=== PATIENT | female | born 1940 | race Caucasian/White ===

== ENCOUNTER 2017-06-14 15:39 | Emergency (ER) | payer MEDICARE, MEDICAID ==
[~2017-06-14] VITALS: Ht 160 cm; Wt 51.0 kg
[~2017-06-14 15:39] MED LIST: CEPH250C92 PO; MECL-111 PO; ONDA4TAB12 PO; TETR15DR95 EACHEYE
[2017-06-14 15:41] VITALS: BP 153/96
[2017-06-14] MEDS: proparacaine 0.5% ophthalmic drops 15ml RIGHTEYE ONE (16:00)
[2017-06-14] MEDS ORDERED: GENT5DRO4 EACHEYE (16:39)
== END 2017-06-14 16:57 | disposition home or self-care (01) ==
LOC: ER 15:39
DX: H57.11 Ocular pain, right eye (principal); I10 Essential (primary) hypertension; E11.9 Type 2 diabetes mellitus without complications; G43.909 Migraine, unspecified, not intractable, without status migrainosus
CPT/HCPCS: 99283

== ENCOUNTER 2017-08-08 13:36 | Emergency (ER) | payer MEDICARE, MEDICAID ==
[~2017-08-08] VITALS: Ht 157.5 cm; Wt 54.4 kg
[~2017-08-08 13:36] MED LIST changes: +GENT5DRO4 EACHEYE
[2017-08-08 14:12] LABS: BASOPHILS % (AUTO) 0.4 % (0-1); EOSINOPHILS # (AUTO) 0.1 X10'3 (0-0.9); EOSINOPHILS % (AUTO) 1.1 % (0-6); HEMATOCRIT 43.4 % (35.0-45.0); HEMOGLOBIN 14.9 g/dl (12.0-16.0); LYMPHOCYTES # (AUTO) 1.4 X10'3 (1.1-4.8); LYMPHOCYTES % (AUTO) 18.6 % (21-51); MEAN CORPUSCULAR HEMOGLOBIN 29.2 PG (27.0-31.0); MEAN CORPUSCULAR HGB CONC 34.3 % (33.0-36.5); MEAN CORPUSCULAR VOLUME 85.3 FL (78-98); MEAN PLATELET VOLUME 8.9 FL (7.4-10.4); MONOCYTES # (AUTO) 0.3 X10'3 (0-0.9); MONOCYTES % (AUTO) 3.6 % (2-12); NEUTROPHILS # (AUTO) 5.6 X10'3 (1.8-7.7); NEUTROPHILS % (AUTO) 76.3 % (42-75); PLATELET COUNT 252 X10'3 (140-440); RED BLOOD COUNT 5.09 X10'6 (4.20-5.60); RED CELL DISTRIBUTION WIDTH 13.3 % (11.5-14.5); WHITE BLOOD COUNT 7.3 X10'3 (4.5-11.0)
[2017-08-08 14:26] LABS: ALANINE AMINOTRANSFERASE 16 U/L (12-78); ALBUMIN 4.3 G/DL (3.4-5.0); ALBUMIN/GLOBULIN RATIO 1.1 (1.1-1.5); ALKALINE PHOSPHATASE 104 IU/L (46-116); ANION GAP 11 (8-16); ASPARTATE AMINO TRANSFERASE 22 U/L (10-37); BILIRUBIN,TOTAL 0.7 MG/DL (0.1-1.0); BLOOD UREA NITROGEN 18 MG/DL (7-18); BUN/CREATININE RATIO 16.5 (6.6-38.0); CALCIUM 9.6 MG/DL (8.5-10.1); CHLORIDE 102 MMOL/L (99-107); CREATININE 1.09 MG/DL (0.40-0.90); GLUCOSE 124 MG/DL (70-104); POTASSIUM 4.5 MMOL/L (3.5-5.1); SODIUM 139 MMOL/L (135-145); TOTAL CARBON DIOXIDE 25.9 MMOL/L (24-32); TOTAL PROTEIN 8.3 G/DL (6.4-8.2); eGFR 49 ML/MIN
[2017-08-08] MEDS ORDERED: LISI10TA4 PO (14:38)
[2017-08-08 14:39] LABS: CLARITY,URINE CLEAR (Clear); COLOR,URINE YELLOW (Yellow); GLUCOSE, URINE NEGATIVE (Neg); KETONES,URINE TRACE mg/dl (Neg); LEUKOCYTE ESTERASE ,URINE NEGATIVE (Neg); NITRITES, URINE NEGATIVE (Neg); OCCULT BLOOD,URINE TRACE-INTACT (Neg); PH,URINE 5.5 (4.8-8.0); PROTEIN,URINE NEGATIVE (Neg); UROBILINOGEN,URINE 0.2 E.U/dL (0.2-1.0)
[2017-08-08 14:43] LABS: UA COLLECTION TYPE VOIDED
[2017-08-08 14:45] LABS: BACTERIA,URINE FEW /HPF (Neg); RBC,URINE 0-2 /HPF (0-2); SQUAMOUS EPITHELIAL CELL,UR FEW /LPF (FEW); WBC,URINE 0-4 /HPF (0-4)
[2017-08-08 15:03] VITALS: BP 119/68
[2017-08-14] MEDS ORDERED: CIPR-259 PO (00:07)
== END 2017-08-08 15:06 | disposition home or self-care (01) ==
LOC: ER 13:37
DX: I10 Essential (primary) hypertension (principal); G43.909 Migraine, unspecified, not intractable, without status migrainosus; E11.9 Type 2 diabetes mellitus without complications; E78.00 Pure hypercholesterolemia, unspecified; R41.0 Disorientation, unspecified; Z79.2 Long term (current) use of antibiotics; Z79.899 Other long term (current) drug therapy
CPT/HCPCS: 36415; 80053; 81001; 85025; 93005; 99285

== ENCOUNTER 2017-08-12 05:35 | Emergency (ER) | payer MEDICARE, MEDICAID ==
[~2017-08-12] VITALS: Ht 157.5 cm; Wt 51.1 kg
[~2017-08-12 05:35] MED LIST changes: +LISI10TA4 PO
[2017-08-12 06:00] VITALS: BP 116/57
[2017-08-14] MEDS ORDERED: CIPR-259 PO (00:07)
== END 2017-08-12 06:02 | disposition home or self-care (01) ==
LOC: ER 05:36
DX: Z00.8 Encounter for other general examination (principal); R42 Dizziness and giddiness; G43.909 Migraine, unspecified, not intractable, without status migrainosus; I10 Essential (primary) hypertension; E11.9 Type 2 diabetes mellitus without complications; Z79.2 Long term (current) use of antibiotics; Z79.899 Other long term (current) drug therapy
CPT/HCPCS: 93005; 99283

== ENCOUNTER 2017-08-16 10:51 | Emergency (ER) | payer MEDICARE, MEDICAID ==
[~2017-08-16] VITALS: Ht 157.5 cm; Wt 54.0 kg
[~2017-08-16 10:51] MED LIST changes: +CIPR-259 PO
[2017-08-16 11:47] LABS: BASOPHILS % (AUTO) 0.3 % (0-1); EOSINOPHILS % (AUTO) 0.5 % (0-6); HEMATOCRIT 42.2 % (35.0-45.0); HEMOGLOBIN 14.4 g/dl (12.0-16.0); LYMPHOCYTES # (AUTO) 1.5 X10'3 (1.1-4.8); LYMPHOCYTES % (AUTO) 17.6 % (21-51); MEAN CORPUSCULAR HEMOGLOBIN 29.2 PG (27.0-31.0); MEAN PLATELET VOLUME 8.6 FL (7.4-10.4); MONOCYTES # (AUTO) 0.4 X10'3 (0-0.9); MONOCYTES % (AUTO) 4.3 % (2-12); NEUTROPHILS # (AUTO) 6.4 X10'3 (1.8-7.7); NEUTROPHILS % (AUTO) 77.3 % (42-75); PLATELET COUNT 230 X10'3 (140-440); RED BLOOD COUNT 4.91 X10'6 (4.20-5.60); RED CELL DISTRIBUTION WIDTH 12.8 % (11.5-14.5); WHITE BLOOD COUNT 8.3 X10'3 (4.5-11.0)
[2017-08-16 11:58] LABS: PARTIAL THROMBOPLASTIN TIME 26 SECONDS (22-32); PROTHROMBIN TIME 10.8 SECONDS (9.0-12.0)
[2017-08-16 12:01] LABS: ALANINE AMINOTRANSFERASE 15 U/L (12-78); ALBUMIN 3.8 G/DL (3.4-5.0); ALKALINE PHOSPHATASE 103 IU/L (46-116); ANION GAP 10 (8-16); ASPARTATE AMINO TRANSFERASE 23 U/L (10-37); BILIRUBIN,TOTAL 0.5 MG/DL (0.1-1.0); BLOOD UREA NITROGEN 14 MG/DL (7-18); BUN/CREATININE RATIO 16.1 (6.6-38.0); CALCIUM 9.3 MG/DL (8.5-10.1); CHLORIDE 96 MMOL/L (99-107); CREATININE 0.87 MG/DL (0.40-0.90); GLUCOSE 116 MG/DL (70-104); SODIUM 133 MMOL/L (135-145); TOTAL CARBON DIOXIDE 26.6 MMOL/L (24-32); TOTAL PROTEIN 7.6 G/DL (6.4-8.2); eGFR 63 ML/MIN
[2017-08-16] MEDS ORDERED: famotidine/PF 10 mg/ml inj IV ONE (13:25)
[2017-08-16] MEDS ORDERED: normal saline 1000ML IV soln IVB ONE (13:25)
[2017-08-16 14:41] LABS: CLARITY,URINE CLEAR (Clear); COLOR,URINE STRAW (Yellow); GLUCOSE, URINE NEGATIVE (Neg); KETONES,URINE TRACE mg/dl (Neg); LEUKOCYTE ESTERASE ,URINE NEGATIVE (Neg); NITRITES, URINE NEGATIVE (Neg); OCCULT BLOOD,URINE NEGATIVE (Neg); PROTEIN,URINE NEGATIVE (Neg); UA COLLECTION TYPE CLN CATCH MIDSTREAM; UROBILINOGEN,URINE 0.2 E.U/dL (0.2-1.0)
[2017-08-16 17:29] VITALS: BP 111/90
== END 2017-08-16 17:31 | disposition home or self-care (01) ==
LOC: ER 11:01
DX: E86.0 Dehydration (principal); R42 Dizziness and giddiness; H53.8 Other visual disturbances; I10 Essential (primary) hypertension; E11.9 Type 2 diabetes mellitus without complications; G43.909 Migraine, unspecified, not intractable, without status migrainosus; Z79.2 Long term (current) use of antibiotics; Z79.899 Other long term (current) drug therapy
CPT/HCPCS: 36415; 71045; 80053; 81003; 84484; 85025; 85610; 85730; 93005; 96360; 96361; 99285; J7030; J3490

== ENCOUNTER 2017-08-22 15:04 | Emergency (ER) | payer MEDICARE, MEDICAID ==
[~2017-08-22] VITALS: Ht 157.5 cm; Wt 53.5 kg
[2017-08-22 17:30] VITALS: BP 145/90
== END 2017-08-22 17:33 | disposition home or self-care (01) ==
LOC: ER 15:05
DX: Z00.00 Encounter for general adult medical examination without abnormal findings (principal); F41.9 Anxiety disorder, unspecified; G43.909 Migraine, unspecified, not intractable, without status migrainosus; I10 Essential (primary) hypertension; E11.9 Type 2 diabetes mellitus without complications; Z79.2 Long term (current) use of antibiotics; Z79.899 Other long term (current) drug therapy
CPT/HCPCS: 99281

== ENCOUNTER 2018-01-23 15:39 | Emergency (ER) | payer MEDICARE, MEDICAID ==
[~2018-01-23] VITALS: Ht 157.5 cm; Wt 45.5 kg
[~2018-01-23 15:39] MED LIST changes: -CIPR-259 PO
[2018-01-23] MEDS ORDERED: DOCU-28 PO (15:56)
[2018-01-23] MEDS ORDERED: magnesium citrate 296ml oral solution PO ONE (16:00)
[2018-01-23 16:49] VITALS: BP 143/61
== END 2018-01-23 16:50 | disposition home or self-care (01) ==
LOC: ER 15:40
DX: K59.00 Constipation, unspecified (principal); R14.0 Abdominal distension (gaseous); G43.909 Migraine, unspecified, not intractable, without status migrainosus; I10 Essential (primary) hypertension; E11.9 Type 2 diabetes mellitus without complications; Z79.899 Other long term (current) drug therapy
CPT/HCPCS: 99284

== ENCOUNTER 2018-01-24 07:25 | Emergency (ER) | payer MEDICARE, MEDICAID ==
[~2018-01-24] VITALS: Ht 157.5 cm; Wt 50.0 kg
[~2018-01-24 07:25] MED LIST changes: +DOCU-28 PO
[2018-01-24 07:28] VITALS: BP 131/51
[2018-01-24] MEDS ORDERED: magnesium citrate 296ml oral solution PO ONE (07:45)
== END 2018-01-24 07:49 | disposition home or self-care (01) ==
LOC: ER 07:26
DX: K59.00 Constipation, unspecified (principal); R10.9 Unspecified abdominal pain; G43.909 Migraine, unspecified, not intractable, without status migrainosus; I10 Essential (primary) hypertension; E11.9 Type 2 diabetes mellitus without complications; Z79.899 Other long term (current) drug therapy
CPT/HCPCS: 99283

== ENCOUNTER 2018-01-31 19:11 | Emergency (ER) | payer MEDICARE, MEDICAID ==
[~2018-01-31] VITALS: Ht 162.6 cm; Wt 63.6 kg
[2018-01-31 19:26] VITALS: BP 130/72
== END 2018-01-31 20:09 | disposition left against medical advice (07) ==
LOC: ER 19:12
DX: K59.00 Constipation, unspecified (principal); Z53.21 Procedure and treatment not carried out due to patient leaving prior to being seen by health care provider

== ENCOUNTER 2018-05-08 19:02 | Emergency (ER) | payer MEDICARE, MEDICAID ==
[~2018-05-08] VITALS: Ht 157.5 cm; Wt 43.0 kg
[2018-05-08 20:28] LABS: BASOPHILS # (AUTO) 0.1 X10'3 (0-0.2); BASOPHILS % (AUTO) 0.5 % (0-1); EOSINOPHILS % (AUTO) 0.1 % (0-6); HEMATOCRIT 39.5 % (35.0-45.0); HEMOGLOBIN 13.1 g/dl (12.0-16.0); LYMPHOCYTES # (AUTO) 1.2 X10'3 (1.1-4.8); LYMPHOCYTES % (AUTO) 9.5 % (21-51); MEAN CORPUSCULAR HEMOGLOBIN 30.3 PG (27.0-31.0); MEAN CORPUSCULAR HGB CONC 33.1 g/dL (33.0-36.5); MEAN CORPUSCULAR VOLUME 91.5 FL (78-98); MEAN PLATELET VOLUME 8.7 FL (7.4-10.4); MONOCYTES # (AUTO) 0.9 X10'3 (0-0.9); NEUTROPHILS # (AUTO) 10.4 X10'3 (1.8-7.7); NEUTROPHILS % (AUTO) 82.9 % (42-75); PLATELET COUNT 234 X10'3 (140-440); RED BLOOD COUNT 4.31 X10'6 (4.20-5.60); RED CELL DISTRIBUTION WIDTH 13.7 % (11.5-14.5); WHITE BLOOD COUNT 12.5 X10'3 (4.5-11.0)
[2018-05-08 20:38] LABS: ALANINE AMINOTRANSFERASE 16 U/L (12-78); ALBUMIN 3.4 G/DL (3.4-5.0); ALKALINE PHOSPHATASE 103 IU/L (46-116); ANION GAP 7 (8-16); ASPARTATE AMINO TRANSFERASE 24 U/L (10-37); BILIRUBIN,TOTAL 0.2 MG/DL (0.1-1.0); BLOOD UREA NITROGEN 20 MG/DL (7-18); BUN/CREATININE RATIO 23.3 (6.6-38.0); CALCIUM 9.2 MG/DL (8.5-10.1); CHLORIDE 107 MMOL/L (99-107); CREATININE 0.86 MG/DL (0.40-0.90); GLUCOSE 94 MG/DL (70-104); POTASSIUM 3.9 MMOL/L (3.5-5.1); SODIUM 140 MMOL/L (135-145); TOTAL CARBON DIOXIDE 25.7 MMOL/L (24-32); TOTAL PROTEIN 6.9 G/DL (6.4-8.2); eGFR 64 ML/MIN
[2018-05-08 20:48] LABS: TROPONIN I 1.36 NG/ML (0.0-0.05)
[2018-05-08 21:12] LABS: PARTIAL THROMBOPLASTIN TIME 26 SECONDS (22-32); PROTHROMBIN TIME 10.5 SECONDS (9.0-12.0)
[2018-05-08] MEDS ORDERED: aspirin 81mg tab.chew PO ONE (21:15)
[2018-05-08] MEDS ORDERED: normal saline 1000ml 1,000 ML IV ONE (21:17)
[2018-05-08] MEDS ORDERED: normal saline 1000ML IV soln IVB ONE (21:20)
[2018-05-08] MEDS ORDERED: TETanus/Pertussis (Acell)/Diphther VAC/PF (Tdap-Adult) 0.5ml syringe IM ONE (21:50)
[2018-05-08 21:56] LABS: CLARITY,URINE CLEAR (Clear); COLOR,URINE YELLOW (Yellow); GLUCOSE, URINE NEGATIVE (Neg); KETONES,URINE NEGATIVE (Neg); LEUKOCYTE ESTERASE ,URINE NEGATIVE (Neg); NITRITES, URINE NEGATIVE (Neg); OCCULT BLOOD,URINE TRACE-INTACT (Neg); PH,URINE 5.5 (4.8-8.0); PROTEIN,URINE TRACE mg/dl (Neg); UROBILINOGEN,URINE 0.2 E.U/dL (0.2-1.0)
[2018-05-08 21:57] LABS: CREATINE KINASE 369 U/L (26-192); LIPASE 234 U/L (73-393); MAGNESIUM 2.1 MG/DL (1.5-2.4)
[2018-05-08 22:01] LABS: UA COLLECTION TYPE CLN CATCH MIDSTREAM
[2018-05-08 22:03] LABS: HYALINE CASTS 0-3 /LPF (NEGATIVE); MUCUS STRANDS MANY /LPF (Neg); SQUAMOUS EPITHELIAL CELL,UR MODERATE /LPF (FEW)
[2018-05-08 22:04] LABS: BACTERIA,URINE FEW /HPF (Neg); RBC,URINE 0-2 /HPF (0-2); WBC,URINE 0-4 /HPF (0-4)
[2018-05-08 23:41] VITALS: BP 132/75
--- NOTE | 2018-05-09 00:59 | NUR ---
pt resting comfortably on gurney. awaiting hospitalist and CT scan
--- NOTE | 2018-05-09 02:22 | NUR ---
ATTEMPTED TO CONTACT NEXT OF KIN - NUMBER ON CHART FOR KORINA GOMEZ STATES "NON-WORKING NUMBER" WHEN CALLED - I CHECKED PREVIOUS CHART NOTES FROM OTHER VISITS AND THE SAME NUMBER WAS LISTED. UNABLE TO REACH ANYONE RELATED TO PT TO LET THEM KNOW OF HER DISPOSITION.
== END 2018-05-09 03:15 | disposition short-term general hospital (02) ==
LOC: ER 19:02
DX: S06.5X0A Traumatic subdural hemorrhage without loss of consciousness, initial encounter (principal); S51.811A Laceration without foreign body of right forearm, initial encounter; S80.812A Abrasion, left lower leg, initial encounter; S80.811A Abrasion, right lower leg, initial encounter; I21.4 Non-ST elevation (NSTEMI) myocardial infarction; R41.82 Altered mental status, unspecified; G43.909 Migraine, unspecified, not intractable, without status migrainosus; I10 Essential (primary) hypertension; E11.9 Type 2 diabetes mellitus without complications; Z79.899 Other long term (current) drug therapy; W18.30XA Fall on same level, unspecified, initial encounter; Y93.89 Activity, other specified; Y92.89 Other specified places as the place of occurrence of the external cause; Y99.8 Other external cause status
CPT/HCPCS: 36415; 70450; 71045; 80053; 81001; 82550; 82948; 83690; 83735; 83880; 84484; 85025; 85610; 85730; 90471; 90715; 93005; 96360; 99291; J7030

== ENCOUNTER → 2021-03-28 | Emergency (ER) | payer MEDICARE, MEDICAID ==
[~2021-03-28] VITALS: Ht 160 cm; Wt 50.9 kg
[~2021-03-28] MED LIST changes: +LISI10TA27 PO; -LISI10TA4 PO; -MECL-111 PO; +MECL-159 PO; +TETR-78 EACHEYE; -TETR15DR95 EACHEYE
[2021-03-28 19:58] VITALS: BP 145/84
== END | disposition left against medical advice (07) ==
LOC: ER 19:23
DX: R11.0 Nausea (principal); G43.909 Migraine, unspecified, not intractable, without status migrainosus; I10 Essential (primary) hypertension; E11.9 Type 2 diabetes mellitus without complications; Z86.73 Personal history of transient ischemic attack (TIA), and cerebral infarction without residual deficits; Z79.899 Other long term (current) drug therapy; Z79.2 Long term (current) use of antibiotics
CPT/HCPCS: 99283

== ENCOUNTER 2021-04-13 10:01 | Inpatient (IN) | payer MEDICARE, MEDICAID ==
[~2021-04-13] VITALS: Ht 152.4 cm; Wt 43.2 kg
[2021-04-13] MEDS ORDERED: normal saline 1000ml 1,000 ML IV ONE ×2 (10:10→12:05)
[2021-04-13 10:50] LABS: BASOPHILS % (AUTO) 0.4 % (0-1); EOSINOPHILS % (AUTO) 0 % (0-6); HEMATOCRIT 46.8 % (35.0-45.0); HEMOGLOBIN 15.3 g/dl (12.0-16.0); LYMPHOCYTES # (AUTO) 0.7 X10'3 (1.1-4.8); LYMPHOCYTES % (AUTO) 12.1 % (21-51); MEAN CORPUSCULAR HEMOGLOBIN 28.7 PG (27.0-31.0); MEAN CORPUSCULAR HGB CONC 32.7 g/dL (33.0-36.5); MEAN CORPUSCULAR VOLUME 87.9 FL (78-98); MEAN PLATELET VOLUME 8.5 FL (7.4-10.4); MONOCYTES # (AUTO) 0.5 X10'3 (0-0.9); MONOCYTES % (AUTO) 7.8 % (2-12); NEUTROPHILS # (AUTO) 4.9 X10'3 (1.8-7.7); NEUTROPHILS % (AUTO) 79.7 % (42-75); PLATELET COUNT 332 X10'3 (140-440); RED BLOOD COUNT 5.32 X10'6 (4.20-5.60); RED CELL DISTRIBUTION WIDTH 14.4 % (11.5-14.5); WHITE BLOOD COUNT 6.2 X10'3 (4.5-11.0)
[2021-04-13 11:38] LABS: ALANINE AMINOTRANSFERASE 16 U/L (12-78); ALBUMIN 2.9 G/DL (3.4-5.0); ALBUMIN/GLOBULIN RATIO 0.6 (1.1-1.5); ALKALINE PHOSPHATASE 124 IU/L (46-116); ANION GAP 14 (8-16); ASPARTATE AMINO TRANSFERASE 29 U/L (10-37); BILIRUBIN,TOTAL 0.6 MG/DL (0.1-1.0); BLOOD UREA NITROGEN 17 MG/DL (7-18); BUN/CREATININE RATIO 16.7 (6.6-38.0); CALCIUM 8.8 MG/DL (8.5-10.1); CHLORIDE 98 MMOL/L (99-107); CREATINE KINASE 168 U/L (26-192); CREATININE 1.02 MG/DL (0.40-0.90); GLUCOSE 136 MG/DL (70-104); POTASSIUM 3.7 MMOL/L (3.5-5.1); SODIUM 139 MMOL/L (135-145); TOTAL CARBON DIOXIDE 27.3 MMOL/L (24-32); TOTAL PROTEIN 7.9 G/DL (6.4-8.2); eGFR 52 ML/MIN
--- NOTE | 2021-04-13 13:12 | NUR ---
FRIEND OF PT HERE TO VISIT, INFORMED THAT AT THIS TIME SHE COULD NOT HAVE VISITORS DO TO AN INSECT INFESTATIO. FRIEND REQUESTED THAT HE BE NOTIFIED TO WHEN PT IS DC OR IF SHE IS BEING ADMITTED. KORINA HAQ: [phone]
[2021-04-13] MEDS ORDERED: piperacillin/tazo 3.375gm/50ml 50 ML IV ONE (14:30)
[2021-04-13] MEDS ORDERED: Permethrin Cream 60gm TP ONE (15:50)
[2021-04-13] MEDS: normal saline 1000ml 1,000 ML IV SCH (15:50)
[2021-04-13] MEDS ORDERED: acetaminophen 650mg rectal suppository RC PRN (15:50)
[2021-04-13] MEDS ORDERED: metoclopramide 5 mg/ml inj IV PRN (15:50)
[2021-04-13] MEDS ORDERED: ondansetron 4mg rapidly disintigrating tab PO PRN (15:50)
[2021-04-13] MEDS ORDERED: mag hydrox/Alum hydrox/simeth 30ml oral suspension PO PRN (15:50)
[2021-04-13] MEDS ORDERED: Ivermectin 3mg tablet PO SCH (15:50)
[2021-04-13] MEDS ORDERED: bisacodyl 10mg suppository rectal RC PRN (15:50)
[2021-04-13] MEDS ORDERED: magnesium 4gm in 100ml NS 100 ML IV PRN (15:50)
[2021-04-13] MEDS ORDERED: magnesium Cl slow-release 64mg tablet PO PRN (15:50)
[2021-04-13] MEDS ORDERED: magnesium hydroxide 30ml (MOM) UD suspension PO PRN (15:50)
[2021-04-13] MEDS ORDERED: acetaminophen 325mg tablet PO PRN ×2 (15:50)
[2021-04-13] MEDS ORDERED: potassium Cl 20 mEq SR tablet PO PRN (15:50)
[2021-04-13] MEDS ORDERED: diphenhydrAMINE 25mg capsule PO PRN (15:50)
[2021-04-13] MEDS ORDERED: magnesium 2GM in 50ml NS 50 ML IV PRN (15:50)
[2021-04-13] MEDS ORDERED: diphenhydrAMINE 50 mg/ml inj IV PRN (15:50)
[2021-04-13] MEDS: piperacillin/tazo 3.375gm/50ml 50 ML IV SCH (16:00)
[2021-04-13 16:57] LABS: CREATINE KINASE 134 U/L (26-192); MAGNESIUM 1.6 MG/DL (1.5-2.4)
[2021-04-13 17:10] LABS: POTASSIUM 2.9 MMOL/L (3.5-5.1)
[2021-04-13] MEDS: potassium CL 10mEq/100ml bag 100 ML IV PRN (18:12)
[2021-04-13] MEDS ORDERED: NO HOME MEDS (18:20)
[2021-04-13 18:33] LABS: D-DIMER 9.63 MG/L FEU (0-0.50)
[2021-04-13] MEDS: K and/or MAG REPLACEMENT MC SCH (20:00)
[2021-04-13 22:00] VITALS: BP 164/85
[2021-04-14] MEDS: Ivermectin 3mg tablet PO SCH ×2 (00:47→01:40)
[2021-04-14] MEDS: docusate sod 100mg capsule PO SCH ×3 (00:48→20:00)
[2021-04-14] MEDS: piperacillin/tazo 3.375gm/50ml 50 ML IV SCH ×3 (00:48→16:47)
[2021-04-14] MEDS: famotidine 20mg tablet PO SCH ×3 (00:48→09:53)
[2021-04-14] MEDS: normal saline 1000ml 1,000 ML IV SCH ×2 (00:49→18:00)
--- NOTE | 2021-04-14 01:50 | NUR ---
pt spit out medications given orally. refused further PO meds. cream applied to skin.
[2021-04-14 02:00] VITALS: BP 149/77
[2021-04-14 06:45] VITALS: BP 106/69
--- NOTE | 2021-04-14 06:53 | NUR ---
Patient in room ORTHO 4010. I have received report from Elie DIAZ and had the opportunity to ask questions and assume patient care.
[2021-04-14] MEDS: K and/or MAG REPLACEMENT MC SCH ×2 (08:00→20:29)
[2021-04-14 08:19] LABS: BASOPHILS % (AUTO) 0.4 % (0-1); EOSINOPHILS % (AUTO) 0 % (0-6); HEMATOCRIT 38.6 % (35.0-45.0); HEMOGLOBIN 12.7 g/dl (12.0-16.0); LYMPHOCYTES # (AUTO) 0.6 X10'3 (1.1-4.8); LYMPHOCYTES % (AUTO) 15.1 % (21-51); MEAN CORPUSCULAR HEMOGLOBIN 28.5 PG (27.0-31.0); MEAN CORPUSCULAR VOLUME 86.5 FL (78-98); MEAN PLATELET VOLUME 8.9 FL (7.4-10.4); MONOCYTES # (AUTO) 0.5 X10'3 (0-0.9); MONOCYTES % (AUTO) 11.2 % (2-12); NEUTROPHILS # (AUTO) 3.1 X10'3 (1.8-7.7); NEUTROPHILS % (AUTO) 73.3 % (42-75); PLATELET COUNT 234 X10'3 (140-440); RED BLOOD COUNT 4.47 X10'6 (4.20-5.60); RED CELL DISTRIBUTION WIDTH 14.4 % (11.5-14.5); WHITE BLOOD COUNT 4.3 X10'3 (4.5-11.0)
[2021-04-14 08:40] LABS: D-DIMER 7.67 MG/L FEU (0-0.50)
[2021-04-14 08:44] LABS: ALANINE AMINOTRANSFERASE 14 U/L (12-78); ALBUMIN 2.3 G/DL (3.4-5.0); ALBUMIN/GLOBULIN RATIO 0.7 (1.1-1.5); ALKALINE PHOSPHATASE 90 IU/L (46-116); ANION GAP 11 (8-16); ASPARTATE AMINO TRANSFERASE 23 U/L (10-37); BILIRUBIN,TOTAL 0.6 MG/DL (0.1-1.0); BLOOD UREA NITROGEN 13 MG/DL (7-18); BUN/CREATININE RATIO 16.3 (6.6-38.0); C-REACTIVE PROTEIN 7.57 MG/DL (0.0-0.5); CALCIUM 7.7 MG/DL (8.5-10.1); CHLORIDE 105 MMOL/L (99-107); GLUCOSE 93 MG/DL (70-104); MAGNESIUM 1.9 MG/DL (1.5-2.4); POTASSIUM 3.1 MMOL/L (3.5-5.1); SODIUM 143 MMOL/L (135-145); TOTAL CARBON DIOXIDE 26.7 MMOL/L (24-32); TOTAL PROTEIN 5.8 G/DL (6.4-8.2); eGFR 69 ML/MIN
[2021-04-14] MEDS: potassium Cl 20 mEq SR tablet PO PRN (09:53)
[2021-04-14] MEDS: aspirin 81mg, enteric-coated 1 TAB TABLET.DR PO SCH (09:53)
[2021-04-14] MEDS: enoxaparin 40mg/0.4ml syringe SUBCUT SCH (09:54)
--- NOTE | 2021-04-14 10:10 | NUR ---
PATIENT GIVEN MEDICATION AND SPIT THEM BACK UP. WHEN ASKED HOW SHE TAKES THEM AT HOME SHE STATED "WITH A GLASS OF WATER" AM MEDS, UNABLE TO GIVE DUE TO PATIENT BEING UNCOOPERATIVE.
[2021-04-14 11:12] VITALS: BP 127/79
[2021-04-14 15:09] VITALS: BP 137/62
--- NOTE | 2021-04-14 18:34 | NUR ---
Problems reprioritized. Patient report given, questions answered & plan of care reviewed with NAYELY DIAZ.
[2021-04-14] MEDS: potassium CL 10mEq/100ml bag 100 ML IV PRN (20:10)
[2021-04-14 22:00] VITALS: BP 146/76
[2021-04-15] MEDS: piperacillin/tazo 3.375gm/50ml 50 ML IV SCH ×3 (01:00→16:30)
[2021-04-15] MEDS: normal saline 1000ml 1,000 ML IV SCH ×2 (05:20→16:30)
--- NOTE | 2021-04-15 05:20 | NUR ---
pt iv in right forearm infiltrated attemted x 3 without success. forth dose of potassium iv unable to give at this time also pipercillin 3.375 unable to give.
[2021-04-15 06:00] VITALS: BP 114/65
--- NOTE | 2021-04-15 06:48 | NUR ---
Problems reprioritized. Patient report given, questions answered & plan of care reviewed with Silvia.
--- NOTE | 2021-04-15 06:52 | NUR ---
Patient in room ORTHO 4007. I have received report from EMILY Argueta and had the opportunity to ask questions and assume patient care.
[2021-04-15 07:40] LABS: BASOPHILS % (AUTO) 0.5 % (0-1); EOSINOPHILS % (AUTO) 0 % (0-6); HEMATOCRIT 36.4 % (35.0-45.0); HEMOGLOBIN 12.1 g/dl (12.0-16.0); LYMPHOCYTES # (AUTO) 0.8 X10'3 (1.1-4.8); LYMPHOCYTES % (AUTO) 18.9 % (21-51); MEAN CORPUSCULAR HEMOGLOBIN 28.7 PG (27.0-31.0); MEAN CORPUSCULAR HGB CONC 33.2 g/dL (33.0-36.5); MEAN CORPUSCULAR VOLUME 86.4 FL (78-98); MEAN PLATELET VOLUME 8.9 FL (7.4-10.4); MONOCYTES # (AUTO) 0.5 X10'3 (0-0.9); MONOCYTES % (AUTO) 12.1 % (2-12); NEUTROPHILS % (AUTO) 68.5 % (42-75); PLATELET COUNT 239 X10'3 (140-440); RED BLOOD COUNT 4.21 X10'6 (4.20-5.60); RED CELL DISTRIBUTION WIDTH 14.4 % (11.5-14.5); WHITE BLOOD COUNT 4.4 X10'3 (4.5-11.0)
[2021-04-15] MEDS: K and/or MAG REPLACEMENT MC SCH ×2 (08:00→19:32)
[2021-04-15 08:06] LABS: D-DIMER 4.15 MG/L FEU (0-0.50)
[2021-04-15 08:31] LABS: ALANINE AMINOTRANSFERASE 13 U/L (12-78); ALBUMIN 2.1 G/DL (3.4-5.0); ALBUMIN/GLOBULIN RATIO 0.6 (1.1-1.5); ALKALINE PHOSPHATASE 79 IU/L (46-116); ANION GAP 13 (8-16); ASPARTATE AMINO TRANSFERASE 24 U/L (10-37); BILIRUBIN,TOTAL 0.4 MG/DL (0.1-1.0); BLOOD UREA NITROGEN 16 MG/DL (7-18); BUN/CREATININE RATIO 18.4 (6.6-38.0); C-REACTIVE PROTEIN 8.69 MG/DL (0.0-0.5); CALCIUM 7.9 MG/DL (8.5-10.1); CHLORIDE 104 MMOL/L (99-107); CREATININE 0.87 MG/DL (0.40-0.90); GLUCOSE 80 MG/DL (70-104); MAGNESIUM 1.9 MG/DL (1.5-2.4); POTASSIUM 3.5 MMOL/L (3.5-5.1); SODIUM 142 MMOL/L (135-145); TOTAL CARBON DIOXIDE 25.2 MMOL/L (24-32); TOTAL PROTEIN 5.6 G/DL (6.4-8.2); eGFR 62 ML/MIN
[2021-04-15 10:00] VITALS: BP 135/89
[2021-04-15] MEDS: famotidine 20mg tablet PO SCH (10:08)
[2021-04-15] MEDS: aspirin 81mg, enteric-coated 1 TAB TABLET.DR PO SCH (10:08)
[2021-04-15] MEDS: docusate sod 100mg capsule PO SCH ×2 (10:09→19:37)
[2021-04-15] MEDS: enoxaparin 40mg/0.4ml syringe SUBCUT SCH (10:19)
--- NOTE | 2021-04-15 12:14 | NUR ---
Pt refusing to be repositioned. Education provided on the importance of keeping skin clean and dry, as well as repositioning self in bed. Pt continues to states 'leave me alone, quit jerking me around' when repositioning attempted. Will continue to monitor.
[2021-04-15 14:00] VITALS: BP 153/87
[2021-04-15 18:00] VITALS: BP 152/94
--- NOTE | 2021-04-15 18:57 | NUR ---
Problems reprioritized. Patient report given, questions answered & plan of care reviewed with EMILY Aguilar.
[2021-04-15 22:00] VITALS: BP 135/75
[2021-04-16] MEDS: piperacillin/tazo 3.375gm/50ml 50 ML IV SCH ×3 (00:11→16:04)
[2021-04-16 02:00] VITALS: BP 143/59
[2021-04-16 05:00] VITALS: BP 106/78
[2021-04-16] MEDS: normal saline 1000ml 1,000 ML IV SCH ×2 (06:23→16:08)
--- NOTE | 2021-04-16 06:28 | NUR ---
Patient in room ORTHO 4007. I have received report from Lauren DIAZ and had the opportunity to ask questions and assume patient care.
[2021-04-16] MEDS: docusate sod 100mg capsule PO SCH ×2 (07:27→20:00)
[2021-04-16] MEDS: famotidine 20mg tablet PO SCH (07:27)
[2021-04-16] MEDS: aspirin 81mg, enteric-coated 1 TAB TABLET.DR PO SCH (07:27)
[2021-04-16] MEDS: enoxaparin 40mg/0.4ml syringe SUBCUT SCH (07:28)
[2021-04-16] MEDS: K and/or MAG REPLACEMENT MC SCH ×3 (08:00→19:25)
[2021-04-16 08:26] LABS: BASOPHILS % (AUTO) 0.5 % (0-1); EOSINOPHILS % (AUTO) 0.2 % (0-6); HEMATOCRIT 33.3 % (35.0-45.0); HEMOGLOBIN 11.1 g/dl (12.0-16.0); LYMPHOCYTES # (AUTO) 0.7 X10'3 (1.1-4.8); LYMPHOCYTES % (AUTO) 20.6 % (21-51); MEAN CORPUSCULAR HEMOGLOBIN 28.6 PG (27.0-31.0); MEAN CORPUSCULAR HGB CONC 33.5 g/dL (33.0-36.5); MEAN CORPUSCULAR VOLUME 85.4 FL (78-98); MEAN PLATELET VOLUME 8.5 FL (7.4-10.4); MONOCYTES # (AUTO) 0.3 X10'3 (0-0.9); MONOCYTES % (AUTO) 7.8 % (2-12); NEUTROPHILS # (AUTO) 2.5 X10'3 (1.8-7.7); NEUTROPHILS % (AUTO) 70.9 % (42-75); PLATELET COUNT 245 X10'3 (140-440); RED CELL DISTRIBUTION WIDTH 14.4 % (11.5-14.5); WHITE BLOOD COUNT 3.5 X10'3 (4.5-11.0)
[2021-04-16 08:49] LABS: ALANINE AMINOTRANSFERASE 8 U/L (12-78); ALBUMIN 1.9 G/DL (3.4-5.0); ALBUMIN/GLOBULIN RATIO 0.6 (1.1-1.5); ALKALINE PHOSPHATASE 71 IU/L (46-116); ANION GAP 8 (8-16); ASPARTATE AMINO TRANSFERASE 24 U/L (10-37); BILIRUBIN,TOTAL 0.4 MG/DL (0.1-1.0); BLOOD UREA NITROGEN 11 MG/DL (7-18); BUN/CREATININE RATIO 16.4 (6.6-38.0); CALCIUM 6.6 MG/DL (8.5-10.1); CHLORIDE 104 MMOL/L (99-107); CREATININE 0.67 MG/DL (0.40-0.90); GLUCOSE 95 MG/DL (70-104); MAGNESIUM 1.5 MG/DL (1.5-2.4); SODIUM 139 MMOL/L (135-145); TOTAL CARBON DIOXIDE 27.4 MMOL/L (24-32); TOTAL PROTEIN 4.9 G/DL (6.4-8.2); eGFR 84 ML/MIN
[2021-04-16 08:51] LABS: D-DIMER 4.46 MG/L FEU (0-0.50)
[2021-04-16 09:22] LABS: C-REACTIVE PROTEIN 8.32 MG/DL (0.0-0.5)
[2021-04-16] MEDS: potassium Cl 20 mEq SR tablet PO PRN (09:27)
[2021-04-16 10:00] VITALS: BP 109/53
[2021-04-16] MEDS: potassium CL 10mEq/100ml bag 100 ML IV PRN ×8 (10:05→18:28)
[2021-04-16 14:00] VITALS: BP 140/82
[2021-04-16] MEDS ORDERED: potassium Cl 20 mEq SR tablet PO PRN ×3 (16:00→16:05)
[2021-04-16] MEDS ORDERED: potassium CL 10mEq/100ml bag 100 ML IV PRN (16:00)
[2021-04-16] MEDS ORDERED: magnesium 4gm in 100ml NS 100 ML IV PRN (16:05)
[2021-04-16] MEDS ORDERED: magnesium Cl slow-release 64mg tablet PO PRN (16:05)
[2021-04-16 18:00] VITALS: BP 148/85
[2021-04-16 22:01] VITALS: BP 154/63
[2021-04-17] MEDS: piperacillin/tazo 3.375gm/50ml 50 ML IV SCH ×2 (00:24→07:44)
[2021-04-17 02:02] VITALS: BP 134/65
[2021-04-17 04:07] LABS: ALANINE AMINOTRANSFERASE 11 U/L (12-78); ALBUMIN 2.2 G/DL (3.4-5.0); ALBUMIN/GLOBULIN RATIO 0.6 (1.1-1.5); ALKALINE PHOSPHATASE 82 IU/L (46-116); ANION GAP 9 (8-16); ASPARTATE AMINO TRANSFERASE 25 U/L (10-37); BILIRUBIN,TOTAL 0.5 MG/DL (0.1-1.0); BLOOD UREA NITROGEN 7 MG/DL (7-18); BUN/CREATININE RATIO 10.9 (6.6-38.0); C-REACTIVE PROTEIN 11.47 MG/DL (0.0-0.5); CALCIUM 7.7 MG/DL (8.5-10.1); CHLORIDE 102 MMOL/L (99-107); CREATININE 0.64 MG/DL (0.40-0.90); GLUCOSE 88 MG/DL (70-104); MAGNESIUM 1.5 MG/DL (1.5-2.4); POTASSIUM 3.9 MMOL/L (3.5-5.1); SODIUM 139 MMOL/L (135-145); TOTAL CARBON DIOXIDE 28.4 MMOL/L (24-32); TOTAL PROTEIN 5.8 G/DL (6.4-8.2); eGFR 89 ML/MIN
[2021-04-17 06:00] VITALS: BP 129/64
--- NOTE | 2021-04-17 06:24 | NUR ---
Problems reprioritized. Patient report given, questions answered & plan of care reviewed with
--- NOTE | 2021-04-17 06:33 | NUR ---
received report from skye mills
[2021-04-17] MEDS: normal saline 1000ml 1,000 ML IV SCH ×2 (07:20→19:50)
[2021-04-17] MEDS: famotidine 20mg tablet PO SCH (07:43)
[2021-04-17] MEDS: sertraline 25mg tablet PO SCH (07:43)
[2021-04-17] MEDS: aspirin 81mg, enteric-coated 1 TAB TABLET.DR PO SCH (07:43)
[2021-04-17] MEDS: enoxaparin 40mg/0.4ml syringe SUBCUT SCH (07:44)
[2021-04-17] MEDS: docusate sod 100mg capsule PO SCH ×2 (07:52→20:00)
[2021-04-17] MEDS: K and/or MAG REPLACEMENT MC SCH ×4 (07:53→20:00)
[2021-04-17 08:35] LABS: BASOPHILS % (AUTO) 0.8 % (0-1); EOSINOPHILS % (AUTO) 0.2 % (0-6); HEMATOCRIT 35.9 % (35.0-45.0); HEMOGLOBIN 11.9 g/dl (12.0-16.0); LYMPHOCYTES # (AUTO) 0.7 X10'3 (1.1-4.8); LYMPHOCYTES % (AUTO) 16.7 % (21-51); MEAN CORPUSCULAR HEMOGLOBIN 28.6 PG (27.0-31.0); MEAN CORPUSCULAR HGB CONC 33.1 g/dL (33.0-36.5); MEAN CORPUSCULAR VOLUME 86.4 FL (78-98); MEAN PLATELET VOLUME 9.2 FL (7.4-10.4); MONOCYTES # (AUTO) 0.3 X10'3 (0-0.9); MONOCYTES % (AUTO) 7.3 % (2-12); PLATELET COUNT 251 X10'3 (140-440); RED BLOOD COUNT 4.16 X10'6 (4.20-5.60); RED CELL DISTRIBUTION WIDTH 14.4 % (11.5-14.5); WHITE BLOOD COUNT 3.9 X10'3 (4.5-11.0)
[2021-04-17 08:44] LABS: D-DIMER 4.94 MG/L FEU (0-0.50)
--- NOTE | 2021-04-17 08:50 | NUR ---
Initial: Pt admitted w/ Covid, metabolic encephalopathy and FTT per EMR. Pt was apparently living in unsanitary conditions and not caring for self. Pt currently on Puree diet per [employer] recs though is refusing most meals. D/w RN who states pt is refusing most care and will likely not accept ONS. RN states pt is very thin and cachectic appearing. Given predicted suboptimal intake, severe muscle weakness and muscle/fat wasting pt meets criteria for malnutrition, MD notified. Pt noted to be A&O x 1 and confused. Pt may benefit from TF to meet nutritional needs if within POC and pt cooperative. No BM documented w/ routine colace though pt is uncooperative w/ meds at times. Noted ariel 11 though no open wounds reported. Limited nutrition interventions at this time, will continue to monitor. Recs: 1. Continue Puree diet per [employer] recs; encourage PO intake 2. No ONS; pt will not consume them 3. Consider TF if within POC 4. Routine bowel care 5. Scaled wts Addendum: 04/17/21 at [address] Amended: Links added.
[2021-04-17 10:00] VITALS: BP 97/52
--- NOTE | 2021-04-17 10:19 | NUR ---
attempted to call ex back about an update, phone had busy signal
[2021-04-17 14:00] VITALS: BP 113/57
[2021-04-17 18:00] VITALS: BP 124/56
--- NOTE | 2021-04-17 18:12 | NUR ---
GAVE REPORT TO June,
[2021-04-17 22:00] VITALS: BP 147/65
[2021-04-18] MEDS: normal saline 1000ml 1,000 ML IV SCH ×2 (01:04→22:04)
[2021-04-18 02:00] VITALS: BP 159/61
[2021-04-18 06:00] VITALS: BP 136/66
--- NOTE | 2021-04-18 06:05 | NUR ---
received report from dorian, rn
[2021-04-18] MEDS: K and/or MAG REPLACEMENT MC SCH ×4 (07:49→20:00)
[2021-04-18] MEDS: enoxaparin 40mg/0.4ml syringe SUBCUT SCH (08:01)
[2021-04-18] MEDS: aspirin 81mg, enteric-coated 1 TAB TABLET.DR PO SCH (08:04)
[2021-04-18] MEDS: docusate sod 100mg capsule PO SCH ×2 (08:07→22:03)
[2021-04-18] MEDS: sertraline 25mg tablet PO SCH (08:07)
[2021-04-18] MEDS: famotidine 20mg tablet PO SCH (08:07)
[2021-04-18] MEDS ORDERED: LIDOcaine 2% 10ml TOPICAL JELLY (Urojet) TP ONE (08:15)
[2021-04-18 09:41] LABS: BASOPHILS % (AUTO) 0.7 % (0-1); EOSINOPHILS % (AUTO) 0.5 % (0-6); HEMATOCRIT 37.8 % (35.0-45.0); HEMOGLOBIN 12.5 g/dl (12.0-16.0); LYMPHOCYTES # (AUTO) 0.9 X10'3 (1.1-4.8); LYMPHOCYTES % (AUTO) 22.4 % (21-51); MEAN CORPUSCULAR HEMOGLOBIN 28.3 PG (27.0-31.0); MEAN CORPUSCULAR HGB CONC 33.2 g/dL (33.0-36.5); MEAN CORPUSCULAR VOLUME 85.3 FL (78-98); MEAN PLATELET VOLUME 9.1 FL (7.4-10.4); MONOCYTES # (AUTO) 0.3 X10'3 (0-0.9); MONOCYTES % (AUTO) 8.5 % (2-12); NEUTROPHILS # (AUTO) 2.7 X10'3 (1.8-7.7); NEUTROPHILS % (AUTO) 67.9 % (42-75); PLATELET COUNT 323 X10'3 (140-440); RED BLOOD COUNT 4.43 X10'6 (4.20-5.60); RED CELL DISTRIBUTION WIDTH 14.1 % (11.5-14.5)
[2021-04-18 09:54] LABS: ALANINE AMINOTRANSFERASE 12 U/L (12-78); ALBUMIN 2.1 G/DL (3.4-5.0); ALBUMIN/GLOBULIN RATIO 0.6 (1.1-1.5); ANION GAP 8 (8-16); ASPARTATE AMINO TRANSFERASE 23 U/L (10-37); BILIRUBIN,TOTAL 0.5 MG/DL (0.1-1.0); BLOOD UREA NITROGEN 7 MG/DL (7-18); BUN/CREATININE RATIO 15.2 (6.6-38.0); C-REACTIVE PROTEIN 11.36 MG/DL (0.0-0.5); CALCIUM 7.8 MG/DL (8.5-10.1); CHLORIDE 102 MMOL/L (99-107); CREATININE 0.46 MG/DL (0.40-0.90); GLUCOSE 75 MG/DL (70-104); POTASSIUM 3.7 MMOL/L (3.5-5.1); SODIUM 138 MMOL/L (135-145); TOTAL CARBON DIOXIDE 27.8 MMOL/L (24-32); TOTAL PROTEIN 5.8 G/DL (6.4-8.2); eGFR > 90 ML/MIN
[2021-04-18 09:57] LABS: D-DIMER 4.48 MG/L FEU (0-0.50)
[2021-04-18 11:13] LABS: ALKALINE PHOSPHATASE 78 IU/L (46-116)
--- NOTE | 2021-04-18 14:24 | NUR ---
PRESSURE ULCER EDUCATION: DEFINITION: A pressure ulcer is an area of skin that breaks down when you stay in one position too long. The constant pressure against the skin reduces the blood flow to that area and the affected tissue dies. CAUSES: "Being bedridden or in a wheelchair "Fragile skin "Having a chronic condition, such as diabetes or vascular disease "Inability to move certain parts of your body without assistance "Older age "Incontinence of urine or stool SYMPTOMS: "A reddened area that DOES NOT turn white when pressed on - this can be the beginning of a pressure ulcer "A blister, deep sore or a crater - these can be advanced pressure ulcers FIRST AID: "Relieve the pressure on this area "Keep the area clean and dry "Call your primary doctor if you see any of the above symptoms "DO NOT massage the area "DO NOT use a donut shaped or ring shaped pillow- these actually interfere with the blood flow and cause complications PREVENTION: "Check for pressure ulcers everyday "Change position at least every two hours to relieve pressure "Use items that help relieve pressure- pillows, sheepskin, foam padding, and powders. "Keep skin clean and dry "Eat healthy well balanced meals "Exercise daily IF YOU SEE ANY OF THESE SYMPTOMS WHILE IN THE HOSPITAL - TELL YOUR NURSE IMMEDIATELY. IF YOU SEE ANY OF THESE SYMPTOMS WHILE AT HOME OR HAVE ANY QUESTIONS OR CONCERNS ABOUT PRESSURE ULCERS - CALL YOUR PRIMARY DOCTOR IMMEDIATELY. Addendum: 04/18/21 at 1424 by Joann Dumont RN Amended: Links added.
--- NOTE | 2021-04-18 17:06 | NUR ---
CHARGE NURSE LEFT A MESSAGE W/WOUND CARE, WOUND CARE DID NOT LEAVE THERAHONEY/SUPPLIES AT PT BEDSIDE TO CARE FOR PT AFTER SEEING PT AND MAKING ORDERS
[2021-04-18 18:00] VITALS: BP 108/51
--- NOTE | 2021-04-18 18:19 | NUR ---
GAVE REPORT TO EMILY WALTON
--- NOTE | 2021-04-18 18:30 | NUR ---
Patient in room ORTHO 4007. I have received report from MIRIAM DIAZ and had the opportunity to ask questions and assume patient care.
[2021-04-18 22:00] VITALS: BP 132/74
[2021-04-19 02:00] VITALS: BP 124/79
[2021-04-19 06:00] VITALS: BP 133/79
--- NOTE | 2021-04-19 06:29 | NUR ---
Patient in room ORTHO 4007. I have received report from EMILY Vo and had the opportunity to ask questions and assume patient care.
--- NOTE | 2021-04-19 06:30 | NUR ---
Problems reprioritized. Patient report given, questions answered & plan of care reviewed with MIRIAM DIAZ.
[2021-04-19] MEDS: K and/or MAG REPLACEMENT MC SCH ×4 (08:00→20:00)
--- NOTE | 2021-04-19 08:00 | NUR ---
wound care has not brought up kinsey for pts hip wound, continue to monitor
[2021-04-19] MEDS: famotidine 20mg tablet PO SCH (09:06)
[2021-04-19] MEDS: aspirin 81mg, enteric-coated 1 TAB TABLET.DR PO SCH (09:06)
[2021-04-19] MEDS: enoxaparin 40mg/0.4ml syringe SUBCUT SCH (09:07)
[2021-04-19] MEDS: sertraline 25mg tablet PO SCH (09:07)
[2021-04-19] MEDS: docusate sod 100mg capsule PO SCH ×2 (09:07→19:21)
[2021-04-19 09:43] LABS: D-DIMER 6.19 MG/L FEU (0-0.50)
[2021-04-19 10:00] VITALS: BP 148/66
[2021-04-19] MEDS: normal saline 1000ml 1,000 ML IV SCH ×2 (12:56→16:11)
[2021-04-19 14:00] VITALS: BP 159/76
[2021-04-19 18:00] VITALS: BP 152/95
--- NOTE | 2021-04-19 18:38 | NUR ---
Problems reprioritized. Patient report given, questions answered & plan of care reviewed with Mai DIAZ.
[2021-04-19 22:00] VITALS: BP 142/64
[2021-04-20] VITALS (9 sets, daily range): BP systolic 120–161; BP diastolic 55–69
--- NOTE | 2021-04-20 06:18 | NUR ---
Problems reprioritized. Patient report given, questions answered & plan of care reviewed with Nelson.
--- NOTE | 2021-04-20 06:31 | NUR ---
Patient in room ORTHO 4007. I have received report from EMILY Oneill and had the opportunity to ask questions and assume patient care.
[2021-04-20] MEDS: K and/or MAG REPLACEMENT MC SCH ×4 (08:00→20:00)
[2021-04-20] MEDS: aspirin 81mg, enteric-coated 1 TAB TABLET.DR PO SCH (08:29)
[2021-04-20] MEDS: sertraline 25mg tablet PO SCH (08:29)
[2021-04-20] MEDS: docusate sod 100mg capsule PO SCH ×2 (08:29→22:10)
[2021-04-20] MEDS: famotidine 20mg tablet PO SCH (08:29)
[2021-04-20] MEDS: enoxaparin 40mg/0.4ml syringe SUBCUT SCH (08:30)
--- NOTE | 2021-04-20 09:20 | NUR ---
Reassessment: Pt presently refusing majority of meals, currently on Puree diet per [employer] recs though is refusing most meals. Pt noted to be A&O x 1 and confused, likely contributing to poor PO intake. Previously KALEIGH d/w RN who stated pt is refusing most care and will likely not accept ONS. Pt may benefit from TF to meet nutritional needs if within POC and pt cooperative. quality assurance intern d/w RN pt poor PO intake and the possibility of supplemental nutrition, RN stated they would d/w . No BM documented since admit 04/13, receiving routine bowel care. Will continue to monitor. Recommendations: 1. Continue Puree diet per [employer] recs; encourage PO intake 2. No ONS; pt likely not to accept per RN 3. Consider TF if within POC 4. Routine bowel care 5. Scaled wt this admit; subsequent weekly scaled weights Addendum: 04/20/21 at [address] Amended: Links added. Addendum: 04/20/21 at [address] I have reviewed assessment by analysis internship
[2021-04-20 10:27] LABS: BASOPHILS % (AUTO) 0.7 % (0-1); EOSINOPHILS % (AUTO) 0.6 % (0-6); HEMATOCRIT 36.2 % (35.0-45.0); HEMOGLOBIN 11.8 g/dl (12.0-16.0); LYMPHOCYTES % (AUTO) 19.3 % (21-51); MEAN CORPUSCULAR HEMOGLOBIN 28.1 PG (27.0-31.0); MEAN CORPUSCULAR HGB CONC 32.7 g/dL (33.0-36.5); MEAN PLATELET VOLUME 8.6 FL (7.4-10.4); MONOCYTES # (AUTO) 0.4 X10'3 (0-0.9); MONOCYTES % (AUTO) 7.8 % (2-12); NEUTROPHILS # (AUTO) 3.6 X10'3 (1.8-7.7); NEUTROPHILS % (AUTO) 71.6 % (42-75); PLATELET COUNT 432 X10'3 (140-440); RED BLOOD COUNT 4.21 X10'6 (4.20-5.60); RED CELL DISTRIBUTION WIDTH 14.2 % (11.5-14.5); WHITE BLOOD COUNT 5.1 X10'3 (4.5-11.0)
[2021-04-20] MEDS: normal saline 1000ml 1,000 ML IV SCH ×2 (11:11→23:04)
[2021-04-20 11:29] LABS: ALANINE AMINOTRANSFERASE 10 U/L (12-78); ALBUMIN 1.9 G/DL (3.4-5.0); ALBUMIN/GLOBULIN RATIO 0.6 (1.1-1.5); ANION GAP 12 (8-16); ASPARTATE AMINO TRANSFERASE 19 U/L (10-37); BILIRUBIN,TOTAL 0.6 MG/DL (0.1-1.0); BLOOD UREA NITROGEN 8 MG/DL (7-18); BUN/CREATININE RATIO 14.8 (6.6-38.0); C-REACTIVE PROTEIN 4.22 MG/DL (0.0-0.5); CALCIUM 7.1 MG/DL (8.5-10.1); CHLORIDE 108 MMOL/L (99-107); CREATININE 0.54 MG/DL (0.40-0.90); GLUCOSE 77 MG/DL (70-104); SODIUM 142 MMOL/L (135-145); TOTAL CARBON DIOXIDE 22.1 MMOL/L (24-32); TOTAL PROTEIN 5.2 G/DL (6.4-8.2); eGFR > 90 ML/MIN
--- NOTE | 2021-04-20 11:41 | NUR ---
PAGER ID: [phone] MESSAGE: Citlaly [phone] RE: Cyndee Norris [phone] Critical lab results K 3.0. Will replace per protocol
[2021-04-20] MEDS: potassium CL 10mEq/100ml bag 100 ML IV PRN ×8 (11:55→22:14)
[2021-04-20] MEDS ORDERED: LORazepam 2 mg/ml vial IV ONE (13:10)
--- NOTE | 2021-04-20 15:02 | NUR ---
PAGER ID: [phone] MESSAGE: [phone], Myrna ex Russ on phone for you, his number now is [phone] george Karen2
[2021-04-20] MEDS ORDERED: iohexol 350MG/ML 100ml bottle IV ONE (15:26)
--- NOTE | 2021-04-20 15:30 | NUR ---
Received verbal orders for 0.5mg of iv ativan for CT scan and another 0.5mg to be given if patient required it. CT scan called patient uncooperative and requesting more ativan, placed another order and went to CT scan to assist.
--- NOTE | 2021-04-20 15:56 | NUR ---
Patient medicated for ct scan.
[2021-04-20] MEDS ORDERED: LORazepam 2 mg/ml vial IM ONE (16:05)
--- NOTE | 2021-04-20 17:27 | NUR ---
PAGER ID: [phone] MESSAGE: [phone] Myrna, CTA head and neck done, report shows "Aortic aneurysm with thick irregular mural plaque measuring up to 2 cm in thickness noted within the visualized superior aortic arch" CT CHEST reccomended.. george [phone]
--- NOTE | 2021-04-20 18:07 | NUR ---
disregard post op vital signs.. documented on incorrect patient
--- NOTE | 2021-04-20 18:25 | NUR ---
Problems reprioritized. Patient report given, questions answered & plan of care reviewed with EMILY Paulino.
[2021-04-20 19:50] LABS: D-DIMER 8.62 MG/L FEU (0-0.50)
[2021-04-20] MEDS: HYDROcodone/acetaminophen 10/325mg tab PO PRN (23:00)
[2021-04-21 01:55] VITALS: BP 136/89
[2021-04-21 06:00] VITALS: BP 130/77
--- NOTE | 2021-04-21 06:33 | NUR ---
Problems reprioritized. Patient report given, questions answered & plan of care reviewed with Alyssa.
--- NOTE | 2021-04-21 06:34 | NUR ---
Patient in room ORTHO 4007. I have received report from Lora DIAZ and had the opportunity to ask questions and assume patient care.
[2021-04-21] MEDS: K and/or MAG REPLACEMENT MC SCH ×4 (07:24→19:28)
[2021-04-21] MEDS: sertraline 25mg tablet PO SCH (08:33)
[2021-04-21] MEDS: aspirin 81mg, enteric-coated 1 TAB TABLET.DR PO SCH (08:33)
[2021-04-21] MEDS: famotidine 20mg tablet PO SCH (08:33)
[2021-04-21] MEDS: enoxaparin 40mg/0.4ml syringe SUBCUT SCH (08:33)
[2021-04-21] MEDS: docusate sod 100mg capsule PO SCH ×2 (08:33→20:06)
[2021-04-21 09:47] LABS: ALBUMIN 2.4 G/DL (3.4-5.0); ANION GAP 12 (8-16); BLOOD UREA NITROGEN 4 MG/DL (7-18); BUN/CREATININE RATIO 7.8 (6.6-38.0); C-REACTIVE PROTEIN 4.59 MG/DL (0.0-0.5); CALCIUM 8.2 MG/DL (8.5-10.1); CHLORIDE 103 MMOL/L (99-107); CREATININE 0.51 MG/DL (0.40-0.90); GLUCOSE 80 MG/DL (70-104); POTASSIUM 4.2 MMOL/L (3.5-5.1); SODIUM 139 MMOL/L (135-145); TOTAL CARBON DIOXIDE 24.3 MMOL/L (24-32); eGFR > 90 ML/MIN
[2021-04-21 10:00] VITALS: BP 138/72
[2021-04-21 10:04] LABS: HEMATOCRIT 37.4 % (35.0-45.0); HEMOGLOBIN 12.6 g/dl (12.0-16.0); MEAN CORPUSCULAR HEMOGLOBIN 28.5 PG (27.0-31.0); MEAN CORPUSCULAR HGB CONC 33.6 g/dL (33.0-36.5); MEAN CORPUSCULAR VOLUME 84.9 FL (78-98); MEAN PLATELET VOLUME 8.5 FL (7.4-10.4); PLATELET COUNT 470 X10'3 (140-440); RED CELL DISTRIBUTION WIDTH 14.4 % (11.5-14.5); WHITE BLOOD COUNT 5.9 X10'3 (4.5-11.0)
[2021-04-21 10:25] LABS: D-DIMER 6.23 MG/L FEU (0-0.50)
[2021-04-21] MEDS: normal saline 1000ml 1,000 ML IV SCH (12:39)
[2021-04-21 14:00] VITALS: BP 128/69
[2021-04-21 17:27] VITALS: BP 158/82
--- NOTE | 2021-04-21 18:00 | NUR ---
Patient in room ORTHO 4007. I have received report from EMILY Shah and had the opportunity to ask questions and assume patient care.
[2021-04-21 22:00] VITALS: BP 156/81
[2021-04-21 23:15] LABS: CLARITY,URINE CLEAR (Clear); COLOR,URINE YELLOW (Yellow); GLUCOSE, URINE NEGATIVE (Neg); KETONES,URINE 40 mg/dl (Neg); LEUKOCYTE ESTERASE ,URINE NEGATIVE (Neg); NITRITES, URINE NEGATIVE (Neg); OCCULT BLOOD,URINE NEGATIVE (Neg); PROTEIN,URINE NEGATIVE (Neg)
[2021-04-21 23:21] LABS: UA COLLECTION TYPE NON-SPECIFIED
[2021-04-22] MEDS: normal saline 1000ml 1,000 ML IV SCH (00:54)
[2021-04-22 06:00] VITALS: BP 114/57
--- NOTE | 2021-04-22 06:24 | NUR ---
Problems reprioritized. Patient report given, questions answered & plan of care reviewed with EMILY Shah.
--- NOTE | 2021-04-22 06:25 | NUR ---
Patient in room ORTHO 4007. I have received report from Richa DIAZ and had the opportunity to ask questions and assume patient care.
[2021-04-22] MEDS: K and/or MAG REPLACEMENT MC SCH ×4 (07:25→19:57)
[2021-04-22] MEDS: sertraline 25mg tablet PO SCH (07:32)
[2021-04-22] MEDS: aspirin 81mg, enteric-coated 1 TAB TABLET.DR PO SCH (07:32)
[2021-04-22] MEDS: famotidine 20mg tablet PO SCH (07:32)
[2021-04-22] MEDS: enoxaparin 40mg/0.4ml syringe SUBCUT SCH ×3 (07:32→20:00)
[2021-04-22] MEDS: docusate sod 100mg capsule PO SCH ×2 (07:40→18:28)
[2021-04-22 08:27] LABS: D-DIMER 8.62 MG/L FEU (0-0.50)
[2021-04-22 09:38] VITALS: BP 100/55
[2021-04-22] MEDS: dextrose 5%-1/2 normal saline 1,000 ML IV SCH (12:40)
[2021-04-22] MEDS: lactose-reduced food (Ensure High Protein) 237ml bottle PO SCH ×2 (13:00→18:16)
[2021-04-22] MEDS: ondansetron/PF 4mg/2ml inj IV PRN (13:12)
[2021-04-22 14:00] VITALS: BP 97/52
--- NOTE | 2021-04-22 17:06 | NUR ---
PAGER ID: [phone] MESSAGE: Alyssa [phone] re: Cyndee Norris in [phone]. Can I order a repeat dose of the Permethrin?
[2021-04-22] MEDS: Permethrin Cream 60gm TP ONE ×2 (17:35→21:28)
[2021-04-22 18:00] VITALS: BP 163/59
--- NOTE | 2021-04-22 18:18 | NUR ---
Problems reprioritized. Patient report given, questions answered & plan of care reviewed with Richa DIAZ.
--- NOTE | 2021-04-22 18:20 | NUR ---
Patient in room ORTHO 4007. I have received report from EMILY Shah and had the opportunity to ask questions and assume patient care.
[2021-04-22 22:00] VITALS: BP 129/64
[2021-04-23] MEDS: dextrose 5%-1/2 normal saline 1,000 ML IV SCH ×3 (02:36→23:46)
[2021-04-23 06:00] VITALS: BP 122/54
--- NOTE | 2021-04-23 06:32 | NUR ---
Problems reprioritized. Patient report given, questions answered & plan of care reviewed with Karine DIAZ.
[2021-04-23] MEDS: famotidine 20mg tablet PO SCH (08:00)
[2021-04-23] MEDS: enoxaparin 40mg/0.4ml syringe SUBCUT SCH ×2 (08:00→20:24)
[2021-04-23] MEDS: sertraline 25mg tablet PO SCH (08:00)
[2021-04-23] MEDS: lactose-reduced food (Ensure High Protein) 237ml bottle PO SCH ×3 (08:00→18:00)
[2021-04-23] MEDS: aspirin 81mg, enteric-coated 1 TAB TABLET.DR PO SCH (08:00)
[2021-04-23] MEDS: docusate sod 100mg capsule PO SCH ×2 (08:00→20:00)
[2021-04-23] MEDS: K and/or MAG REPLACEMENT MC SCH ×4 (08:00→20:22)
--- NOTE | 2021-04-23 08:47 | NUR ---
PAGER ID: [phone] MESSAGE: [phone]. Do you want morning labs? CBC/BMP? Karine DIAZ [phone]
[2021-04-23 10:00] VITALS: BP 134/59
--- NOTE | 2021-04-23 10:26 | NUR ---
Reassessment: Pt continues with poor PO intake, documented to be refusing most meals however with 25-50% PO intake of lunch 04/22 and 50% PO intake of milk at dinner 04/22. Pt now receiving an Ensure High Protein TIDWM, documented with 50% PO intake of first ONS. Recommend ONS change to Ensure Enlive for additional nutrients if pt accepting of ONS. However given overall poor nutrition status pt would benefit from nutrition support if within POC. Physician aware of patient's poor PO intake. LBM 04/21, first documented BM since admit. Pt receiving routine Colace BID and received first PRN Dulcolax suppository 04/21. Will continue to follow closely. Recommendations: 1. Continue pureed diet with thin liquids per ST recs 2. Change Ensure High Protein TIDWM to Ensure Enlive TIDWM for additional nutrition IF pt accepting of ONS 3. Consider supplemental versus full EN for nutritional needs if within POC given poor PO intake throughout LOS 4. Routine bowel care; utilize PRN bowel care 5. Scaled wt this admit; subsequent weekly scaled weights Addendum: 04/23/21 at [address] Amended: Links added.
[2021-04-23 11:14] LABS: C-REACTIVE PROTEIN 3.08 MG/DL (0.0-0.5)
[2021-04-23 11:20] LABS: D-DIMER 6.04 MG/L FEU (0-0.50)
[2021-04-23 11:57] LABS: BASOPHILS % (AUTO) 0.9 % (0-1); EOSINOPHILS # (AUTO) 0.1 X10'3 (0-0.9); EOSINOPHILS % (AUTO) 2.2 % (0-6); HEMATOCRIT 32.7 % (35.0-45.0); HEMOGLOBIN 10.9 g/dl (12.0-16.0); LYMPHOCYTES # (AUTO) 0.9 X10'3 (1.1-4.8); LYMPHOCYTES % (AUTO) 17.4 % (21-51); MEAN CORPUSCULAR HEMOGLOBIN 28.8 PG (27.0-31.0); MEAN CORPUSCULAR HGB CONC 33.4 g/dL (33.0-36.5); MEAN CORPUSCULAR VOLUME 86.2 FL (78-98); MEAN PLATELET VOLUME 9.3 FL (7.4-10.4); MONOCYTES # (AUTO) 0.5 X10'3 (0-0.9); NEUTROPHILS # (AUTO) 3.7 X10'3 (1.8-7.7); NEUTROPHILS % (AUTO) 69.5 % (42-75); PLATELET COUNT 443 X10'3 (140-440); RED BLOOD COUNT 3.79 X10'6 (4.20-5.60); RED CELL DISTRIBUTION WIDTH 14.1 % (11.5-14.5); WHITE BLOOD COUNT 5.3 X10'3 (4.5-11.0)
[2021-04-23 12:00] LABS: ALANINE AMINOTRANSFERASE 10 U/L (12-78); ALBUMIN/GLOBULIN RATIO 0.6 (1.1-1.5); ALKALINE PHOSPHATASE 74 IU/L (46-116); ANION GAP 9 (8-16); ASPARTATE AMINO TRANSFERASE 20 U/L (10-37); BILIRUBIN,TOTAL 0.6 MG/DL (0.1-1.0); BLOOD UREA NITROGEN 8 MG/DL (7-18); BUN/CREATININE RATIO 16.3 (6.6-38.0); CALCIUM 7.9 MG/DL (8.5-10.1); CHLORIDE 107 MMOL/L (99-107); CREATININE 0.49 MG/DL (0.40-0.90); GLUCOSE 114 MG/DL (70-104); SODIUM 142 MMOL/L (135-145); TOTAL CARBON DIOXIDE 26.4 MMOL/L (24-32); TOTAL PROTEIN 5.6 G/DL (6.4-8.2); eGFR > 90 ML/MIN
[2021-04-23 12:02] LABS: POTASSIUM 3.9 MMOL/L (3.5-5.1)
[2021-04-23 14:00] VITALS: BP 129/72
[2021-04-23 18:00] VITALS: BP 152/76
--- NOTE | 2021-04-23 18:50 | NUR ---
Problems reprioritized. Patient report given, questions answered & plan of care reviewed with Ellie DIAZ.
[2021-04-23 22:00] VITALS: BP 153/81
[2021-04-23] MEDS: ondansetron/PF 4mg/2ml inj IV PRN (23:46)
[2021-04-24 02:00] VITALS: BP 125/56
[2021-04-24 06:00] VITALS: BP 142/63
--- NOTE | 2021-04-24 06:33 | NUR ---
Problems reprioritized. Patient report given, questions answered & plan of care reviewed with IILIANA.
[2021-04-24] MEDS: K and/or MAG REPLACEMENT MC SCH ×4 (08:00→19:25)
[2021-04-24] MEDS: docusate sod 100mg capsule PO SCH ×2 (08:00→19:29)
[2021-04-24] MEDS: lactose-reduced food (Ensure High Protein) 237ml bottle PO SCH ×3 (08:00→18:00)
[2021-04-24 10:00] VITALS: BP 152/70
[2021-04-24] MEDS: sertraline 25mg tablet PO SCH (10:27)
[2021-04-24] MEDS: famotidine 20mg tablet PO SCH (10:27)
[2021-04-24] MEDS: aspirin 81mg, enteric-coated 1 TAB TABLET.DR PO SCH (10:27)
[2021-04-24] MEDS: enoxaparin 40mg/0.4ml syringe SUBCUT SCH ×2 (10:28→19:28)
[2021-04-24 14:00] VITALS: BP 116/56
--- NOTE | 2021-04-24 16:31 | NUR ---
Page Sent PAGER ID: [phone] MESSAGE: HIREN 6128-RE: MINNA HEAD 1981...PT BECOMING MORE ANXIOUS, CALLING OUT "PLEASE HELP ME", VERY RESTLESS, AND DOESN'T WANT ANYONE TO LEAVE HER...CAN I GET AN ORDER FOR ANTIANXIETY MED? PLEASE AND THANK YOU:)
[2021-04-24] MEDS: diphenhydrAMINE 25mg capsule PO PRN (16:46)
[2021-04-24 18:00] VITALS: BP 138/56
[2021-04-24] MEDS: dextrose 5%-1/2 normal saline 1,000 ML IV SCH (18:00)
[2021-04-24 22:00] VITALS: BP 131/55
[2021-04-24] MEDS: temazepam 15mg capsule PO PRN (23:50)
[2021-04-25] MEDS: dextrose 5%-1/2 normal saline 1,000 ML IV SCH ×2 (01:54→14:33)
[2021-04-25] MEDS: docusate sod 100mg capsule PO SCH ×2 (07:55→20:00)
[2021-04-25] MEDS: famotidine 20mg tablet PO SCH (07:55)
[2021-04-25] MEDS: sertraline 25mg tablet PO SCH (07:55)
[2021-04-25] MEDS: aspirin 81mg, enteric-coated 1 TAB TABLET.DR PO SCH (07:57)
[2021-04-25] MEDS: lactose-reduced food (Ensure High Protein) 237ml bottle PO SCH ×3 (08:00→18:00)
[2021-04-25] MEDS: K and/or MAG REPLACEMENT MC SCH ×4 (08:00→20:00)
[2021-04-25] MEDS: enoxaparin 40mg/0.4ml syringe SUBCUT SCH ×2 (08:06→19:06)
[2021-04-25 10:00] VITALS: BP 91/52
[2021-04-25] MEDS: diphenhydrAMINE 25mg capsule PO PRN ×2 (11:37→20:12)
[2021-04-25 14:00] VITALS: BP 97/56
--- NOTE | 2021-04-25 15:42 | NUR ---
Pt up and walked with assistance of aids, nurse and PT. Pt walked about 50 ft and kept stating "please let me go back to bed." Used gait belt.
[2021-04-25 18:00] VITALS: BP 120/72
[2021-04-25] MEDS: HYDROcodone/acetaminophen 5mg/325mg tablet PO PRN (20:46)
--- NOTE | 2021-04-25 21:13 | NUR ---
PER NURSING ELECTRICIAN APPRENTICE PATIENT HAS A BED TO TRANSFER TO ON SURG[facility]. THERE ARE NO TRANSFER ORDERS OR ORDERS TO D/C PATIENTS TELE. DR FAUST CALLED AND DEFERRED ORDERS TO DAY SHIFT DOCTOR. PATIENT WILL REMAIN IN [facility].
[2021-04-25 22:00] VITALS: BP 127/58
[2021-04-25] MEDS: temazepam 15mg capsule PO PRN (23:44)
[2021-04-26] MEDS: dextrose 5%-1/2 normal saline 1,000 ML IV SCH ×2 (03:54→23:20)
--- NOTE | 2021-04-26 07:59 | NUR ---
Page Sent PAGER ID: [phone] MESSAGE: HIREN 5910-RE: MINNA HEAD [id number]...PT IS OUT OF ISO...CAN I GET TRANSFER ORDER TO SURGICAL AND ORDER TO DC TELE? THANK YOU :)
[2021-04-26] MEDS: K and/or MAG REPLACEMENT MC SCH ×4 (08:00→20:00)
[2021-04-26] MEDS: lactose-reduced food (Ensure High Protein) 237ml bottle PO SCH ×3 (08:00→18:00)
[2021-04-26] MEDS: aspirin 81mg, enteric-coated 1 TAB TABLET.DR PO SCH (08:09)
[2021-04-26] MEDS: docusate sod 100mg capsule PO SCH ×2 (08:09→20:55)
[2021-04-26] MEDS: sertraline 25mg tablet PO SCH (08:09)
[2021-04-26] MEDS: famotidine 20mg tablet PO SCH (08:09)
[2021-04-26] MEDS: enoxaparin 40mg/0.4ml syringe SUBCUT SCH ×2 (08:10→20:55)
[2021-04-26 11:52] LABS: BASOPHILS % (AUTO) 0.2 % (0-1); EOSINOPHILS # (AUTO) 0.1 X10'3 (0-0.9); EOSINOPHILS % (AUTO) 2.4 % (0-6); HEMATOCRIT 28.7 % (35.0-45.0); HEMOGLOBIN 9.5 g/dl (12.0-16.0); LYMPHOCYTES # (AUTO) 1.5 X10'3 (1.1-4.8); LYMPHOCYTES % (AUTO) 24.9 % (21-51); MEAN CORPUSCULAR HEMOGLOBIN 29.1 PG (27.0-31.0); MEAN CORPUSCULAR HGB CONC 33.1 g/dL (33.0-36.5); MEAN CORPUSCULAR VOLUME 87.9 FL (78-98); MEAN PLATELET VOLUME 8.5 FL (7.4-10.4); MONOCYTES # (AUTO) 0.6 X10'3 (0-0.9); MONOCYTES % (AUTO) 10.9 % (2-12); NEUTROPHILS # (AUTO) 3.6 X10'3 (1.8-7.7); NEUTROPHILS % (AUTO) 61.6 % (42-75); PLATELET COUNT 377 X10'3 (140-440); RED BLOOD COUNT 3.26 X10'6 (4.20-5.60); RED CELL DISTRIBUTION WIDTH 14.3 % (11.5-14.5); WHITE BLOOD COUNT 5.9 X10'3 (4.5-11.0)
--- NOTE | 2021-04-26 12:00 | NUR ---
Patient in room PCU 3009. I have received report from Arline DIAZ and had the opportunity to ask questions and assume patient care.
[2021-04-26 12:13] LABS: ALBUMIN 1.8 G/DL (3.4-5.0); ANION GAP 3 (8-16); BLOOD UREA NITROGEN 20 MG/DL (7-18); BUN/CREATININE RATIO 28.2 (6.6-38.0); CALCIUM 8.7 MG/DL (8.5-10.1); CHLORIDE 106 MMOL/L (99-107); CREATININE 0.71 MG/DL (0.40-0.90); GLUCOSE 95 MG/DL (70-104); POTASSIUM 3.5 MMOL/L (3.5-5.1); SODIUM 141 MMOL/L (135-145); TOTAL CARBON DIOXIDE 31.6 MMOL/L (24-32); eGFR 79 ML/MIN
[2021-04-26 12:40] VITALS: BP 113/61
--- NOTE | 2021-04-26 14:56 | NUR ---
F/u 04/26: Pt PO intake much improved past 4 meals ~75% Ensure High Protein and ~73% pureed/thin diet meeting estimated nutrition needs for first time since admit. Remains total assist w/ meals per EMR. Pt remains on D5/half NS at 75ml/hr providing additional 306 kcals/day per EMR. LBM 04/21 receiving routine colace; RD d/w RN regarding additional bowel care if MD agreeable. Will continue to monitor for further nutrition intervention needs this admit. Recommendations: 1. Continue pureed diet w/ thin liquids per [employer]CH/MD recs 2. IF PO regresses; change Ensure High Protein TIDWM to Ensure Enlive TIDWM 3. Encourage PO intake meals/ONS; total assistance w/ meals 4. Routine bowel care; utilize PRN bowel care 5. Scaled wt this admit; subsequent weekly scaled weights Addendum: 04/26/21 at [address] Amended: Links added.
--- NOTE | 2021-04-26 15:41 | NUR ---
Paged Dr. Damian regarding patients IV came out and not letting me put in anew one. PAGER ID: [phone] MESSAGE: [phone], Myrna Cyndee. Pts midline came out when she got to the unit. She is confused and will not let me put in a new IV. Her only IV med is D5 in 0.45 NS. But she is eating well today. Please advise. Jordyn [facility] [phone].
--- NOTE | 2021-04-26 17:01 | NUR ---
Paged Dr. Damian regarding patient not having bowel movement for 5 days and needs bowel care. PAGER ID: [phone] MESSAGE: [phone], Myrna Cotter. Flask Maker called and asked for me to send you a page regarding pt has not had a bowel movement in 5 days, if we could get some type of bowel care added? Jordyn [facility] [id number].
[2021-04-26 18:00] VITALS: BP 59/61
--- NOTE | 2021-04-26 18:11 | NUR ---
Problems reprioritized. Patient report given, questions answered & plan of care reviewed with Perla DIAZ, patient stable at transfer of care.
[2021-04-26 22:00] VITALS: BP 127/55
[2021-04-27 02:00] VITALS: BP 126/60
[2021-04-27 06:00] VITALS: BP 133/51
--- NOTE | 2021-04-27 06:14 | NUR ---
Patient in room PCU 3009. I have received report from Perla DIAZ and had the opportunity to ask questions and assume patient care.
[2021-04-27] MEDS: famotidine 20mg tablet PO SCH (07:41)
[2021-04-27] MEDS: sertraline 25mg tablet PO SCH (07:41)
[2021-04-27] MEDS: aspirin 81mg, enteric-coated 1 TAB TABLET.DR PO SCH (07:41)
[2021-04-27] MEDS: docusate sod 100mg capsule PO SCH ×3 (07:41→20:00)
[2021-04-27] MEDS: enoxaparin 40mg/0.4ml syringe SUBCUT SCH ×2 (07:58→20:34)
[2021-04-27] MEDS: lactose-reduced food (Ensure High Protein) 237ml bottle PO SCH ×3 (08:00→18:00)
[2021-04-27] MEDS: K and/or MAG REPLACEMENT MC SCH ×4 (08:00→20:00)
[2021-04-27 18:00] VITALS: BP 121/55
--- NOTE | 2021-04-27 18:43 | NUR ---
Problems reprioritized. Patient report given, questions answered & plan of care reviewed with Neo RN, patient stable at transfer of care.
[2021-04-27] MEDS: HYDROcodone/acetaminophen 10/325mg tab PO PRN (20:33)
[2021-04-27] MEDS: temazepam 15mg capsule PO PRN (20:33)
[2021-04-27 22:00] VITALS: BP 131/65
[2021-04-28 02:00] VITALS: BP 118/59
[2021-04-28 06:00] VITALS: BP 104/62
--- NOTE | 2021-04-28 06:00 | NUR ---
Patient in room PCU 3012. I have received report from EMILY Larson and had the opportunity to ask questions and assume patient care.
[2021-04-28] MEDS: lactose-reduced food (Ensure High Protein) 237ml bottle PO SCH ×3 (08:00→18:00)
[2021-04-28] MEDS: docusate sod 100mg capsule PO SCH ×2 (08:00→20:00)
[2021-04-28] MEDS: K and/or MAG REPLACEMENT MC SCH ×4 (08:00→20:00)
[2021-04-28] MEDS: enoxaparin 40mg/0.4ml syringe SUBCUT SCH ×2 (08:00→20:00)
[2021-04-28] MEDS: sertraline 25mg tablet PO SCH (08:00)
[2021-04-28] MEDS: famotidine 20mg tablet PO SCH (08:00)
[2021-04-28] MEDS ORDERED: aspirin 81mg tab.chew PO SCH (08:30)
--- NOTE | 2021-04-28 08:59 | NUR ---
PAGER ID: [phone] MESSAGE: Cyndee Norris is supposed to have a CTA, she can't get it until 11am. She is supposed to be discharged at 10:30 transport is coming to get her to take her to [facility]. Please advise Michelle DIAZ ext [phone]
[2021-04-28] MEDS: aspirin 81mg tab.chew PO SCH (09:53)
[2021-04-28] MEDS ORDERED: iohexol 350MG/ML 100ml bottle IV ONE (10:06)
--- NOTE | 2021-04-28 13:06 | NUR ---
PAGER ID: [phone] MESSAGE: re: Cnydee Silvestre 2995C Venita from [facility] called and has a critical on CTA for you please call them back Still needs Neurotele Consult
--- NOTE | 2021-04-28 14:58 | NUR ---
PAGER ID: [phone] MESSAGE: Re: [id number] Cyndee Norris Neuro tele consult Dr Franco called regarding CTA and would like you to call him back
[2021-04-28 15:00] VITALS: BP 123/58
--- NOTE | 2021-04-28 16:36 | NUR ---
PAGER ID: [phone] MESSAGE: Dr. Froylan Carreon U [phone] can you call me regarding patient 3012A, Thank
[2021-04-28 22:00] VITALS: BP 124/62
[2021-04-28] MEDS: HYDROcodone/acetaminophen 5mg/325mg tablet PO PRN (22:28)
[2021-04-28] MEDS: temazepam 15mg capsule PO PRN (22:28)
[2021-04-29 02:00] VITALS: BP 101/54
[2021-04-29 06:00] VITALS: BP 126/57
--- NOTE | 2021-04-29 06:30 | NUR ---
Patient in room [place] [address]. I have received report from and had the opportunity to ask questions and assume patient care. Addendum: 04/29/21 at 0656 by Corinne Oleary RN Patient in room [place] [address]. I have received report from Neo DIAZ and had the opportunity to ask questions and assume patient care.
--- NOTE | 2021-04-29 06:30 | NUR ---
Patient in room PCU 3012. I have received report from EMILY Larson and had the opportunity to ask questions and assume patient care.
[2021-04-29] MEDS: docusate sod 100mg capsule PO SCH ×2 (07:51→21:09)
[2021-04-29] MEDS: sertraline 25mg tablet PO SCH (07:52)
[2021-04-29] MEDS: apixaban 2.5mg tablet PO SCH ×2 (07:52→21:09)
[2021-04-29] MEDS: aspirin 81mg tab.chew PO SCH (07:52)
[2021-04-29] MEDS: famotidine 20mg tablet PO SCH (07:52)
[2021-04-29] MEDS: lactose-reduced food (Ensure High Protein) 237ml bottle PO SCH ×3 (07:53→18:04)
[2021-04-29] MEDS: K and/or MAG REPLACEMENT MC SCH ×2 (08:00→20:45)
[2021-04-29 11:00] VITALS: BP 131/57
--- NOTE | 2021-04-29 11:31 | NUR ---
Reassessment: Pt continues eating well, documented with average 82% PO intake of meals since last RD assessment (04/26) and up to 100% PO intake of four most recent ONS. Overall pt meeting estimated nutrient needs. Pt remains A/O x 1 and confused, receiving total assistance with meals per EMR. LBM 04/27, receiving routine bowel care with PRN bowel care available. No further nutrition intervention implemented at this time. Will continue to follow. Recommendations: 1. Continue pureed diet with thin liquids per [employer] recs; consider f/u BSS 2. IF PO regresses; change Ensure High Protein TIDWM to Ensure Enlive TIDWM 3. Encourage PO intake meals/ONS; total assistance with meals 4. Routine bowel care; utilize PRN bowel care 5. Scaled wt this admit; subsequent weekly scaled weights Addendum: 04/29/21 at [address] Amended: Links added.
[2021-04-29 15:00] VITALS: BP 102/51
--- NOTE | 2021-04-29 16:50 | NUR ---
Paged hospitalist: PAGER ID: [phone] MESSAGE: Room: 3012A: Myrna: Can we switch the IV thiamine to PO? Pt's IV is infiltrated. They will be discharging tomorrow. Kavitha [phone]
[2021-04-29] MEDS: thiamine 100mg/ml 2ml inj. IV SCH (17:58)
[2021-04-29 18:00] VITALS: BP 119/62
--- NOTE | 2021-04-29 18:05 | NUR ---
[place] documentation: I have reviewed and agree with all interventions, assessments performed and documented by Kavitha RN.
--- NOTE | 2021-04-29 18:06 | NUR ---
[place] Medication Administration: For this medication-pass time frame, all medication were reviewed, dispensed, administered and documented per hospital policy by Kavitha DIAZ.
--- NOTE | 2021-04-29 18:18 | NUR ---
Problems reprioritized. Patient report given, questions answered & plan of care reviewed with Paige DIAZ.
[2021-04-29] MEDS: diphenhydrAMINE 25mg capsule PO PRN (21:09)
[2021-04-29 22:00] VITALS: BP 127/63
[2021-04-30] MEDS: thiamine 100mg/ml 2ml inj. IV SCH ×4 (01:11→16:00)
[2021-04-30 02:00] VITALS: BP 109/60
--- NOTE | 2021-04-30 05:43 | NUR ---
Patient in bed awake and alert with confusion calling staff not to leave her in bed climbing out of bed DR lucero aware new order for sitter.
[2021-04-30 06:00] VITALS: BP 123/59
--- NOTE | 2021-04-30 06:30 | NUR ---
Patient in room PCU 3012. I have received report from EMILY Gibson and had the opportunity to ask questions and assume patient care.
[2021-04-30] MEDS: lactose-reduced food (Ensure High Protein) 237ml bottle PO SCH ×2 (08:00→13:06)
[2021-04-30] MEDS: docusate sod 100mg capsule PO SCH ×2 (08:00→09:58)
[2021-04-30] MEDS: K and/or MAG REPLACEMENT MC SCH (08:00)
[2021-04-30] MEDS: famotidine 20mg tablet PO SCH (08:00)
[2021-04-30] MEDS: apixaban 2.5mg tablet PO SCH (09:58)
[2021-04-30] MEDS: sertraline 25mg tablet PO SCH (09:58)
[2021-04-30] MEDS: aspirin 81mg tab.chew PO SCH (09:58)
--- NOTE | 2021-04-30 10:35 | NUR ---
Paged hospitalist: PAGER ID: [phone] MESSAGE: Room: 3012A: Myrna: Unable to administer IV thiamine. IV access lost. A new peripheral IV has not been placed because the pt is very agitated at this moment. EMILY Plummer [phone]
[2021-04-30 11:00] VITALS: BP 102/48
[2021-04-30 15:00] VITALS: BP 133/66
== END 2021-04-30 16:39 | DRG 177 ==
LOC: ER 10:01 → UNDOADMIN 15:54 → ED HOLD 15:54 → ORTHO 4S 22:05 → ED HOLD 22:05 → ORTHO 4S 04-23 10:16 → PCU 3S 04-26 12:05
PROVIDERS: ADMIT Family Medicine; ATTEND Family Medicine
PROC: B3251ZZ Computerized Tomography (CT Scan) of Bilateral Common Carotid Arteries using Low Osmolar Contrast (ICD-10-PCS; principal; 2021-04-20)
PROC: B32G1ZZ Computerized Tomography (CT Scan) of Bilateral Vertebral Arteries using Low Osmolar Contrast (ICD-10-PCS; 2021-04-20)
PROC: B32R1ZZ Computerized Tomography (CT Scan) of Intracranial Arteries using Low Osmolar Contrast (ICD-10-PCS; 2021-04-20)
PROC: B3281ZZ Computerized Tomography (CT Scan) of Bilateral Internal Carotid Arteries using Low Osmolar Contrast (ICD-10-PCS; 2021-04-20)
PROC: B32T1ZZ Computerized Tomography (CT Scan) of Left Pulmonary Artery using Low Osmolar Contrast (ICD-10-PCS; 2021-04-28)
PROC: B3201ZZ Computerized Tomography (CT Scan) of Thoracic Aorta using Low Osmolar Contrast (ICD-10-PCS; 2021-04-28)
PROC: B32S1ZZ Computerized Tomography (CT Scan) of Right Pulmonary Artery using Low Osmolar Contrast (ICD-10-PCS; 2021-04-28)
DX: U07.1 COVID-19 (principal); G93.41 Metabolic encephalopathy; J12.82 Pneumonia due to coronavirus disease 2019; I71.00 Dissection of unspecified site of aorta; E43 Unspecified severe protein-calorie malnutrition; G08 Intracranial and intraspinal phlebitis and thrombophlebitis; E87.2 Acidosis; Z68.1 Body mass index [BMI] 19.9 or less, adult; R78.81 Bacteremia; I10 Essential (primary) hypertension; B86 Scabies; I71.2 Thoracic aortic aneurysm, without rupture; E87.6 Hypokalemia; Z60.2 Problems related to living alone; R62.7 Adult failure to thrive; G43.909 Migraine, unspecified, not intractable, without status migrainosus; M25.551 Pain in right hip; Z66 Do not resuscitate; K57.30 Diverticulosis of large intestine without perforation or abscess without bleeding; E11.9 Type 2 diabetes mellitus without complications; F03.90 Unspecified dementia, unspecified severity, without behavioral disturbance, psychotic disturbance, mood disturbance, and anxiety; Z79.82 Long term (current) use of aspirin; Z79.899 Other long term (current) drug therapy; Z86.73 Personal history of transient ischemic attack (TIA), and cerebral infarction without residual deficits; Z78.1 Physical restraint status
CPT/HCPCS: 36410; 36415; 70450; 70496; 70498; 71045; 71275; 72125; 73501; 73700; 74176; 76937; 80048; 80053; 81003; 82550; 83605; 83735; 84132; 84145; 84443; 84484; 85025; 85027; 85379; 86140; 87040; 87077; 87081; 87186; 87635; 92508; 92616; 93005; 93970; 96361; 96365; 97116; 97161; 97530; 99285; G0378; J1200; J1650; J2060; J2405; J2543; J3411; J3480; J7030; J7042; Q0163; Q9967

== ENCOUNTER 2021-05-01 11:24 | Inpatient (IN) | payer MEDICARE, MEDICAID ==
[~2021-05-01] VITALS: Ht 307.3 cm; Wt 47.7 kg
[~2021-05-01 11:24] MED LIST changes: -CEPH250C92 PO; -DOCU-28 PO; -GENT5DRO4 EACHEYE; -LISI10TA27 PO; -MECL-159 PO; +NO HOME MEDS; -ONDA4TAB12 PO; -TETR-78 EACHEYE
[2021-05-01] MEDS ORDERED: haloperidol lactate 5mg/ml inj IM ONE ×2 (11:45→12:55)
[2021-05-01 12:26] LABS: BASOPHILS # (AUTO) 0.1 X10'3 (0-0.2); BASOPHILS % (AUTO) 1.1 % (0-1); EOSINOPHILS # (AUTO) 0.1 X10'3 (0-0.9); EOSINOPHILS % (AUTO) 1.1 % (0-6); HEMOGLOBIN 10.4 g/dl (12.0-16.0); LYMPHOCYTES # (AUTO) 1.2 X10'3 (1.1-4.8); MEAN CORPUSCULAR HEMOGLOBIN 28.8 PG (27.0-31.0); MEAN CORPUSCULAR HGB CONC 32.6 g/dL (33.0-36.5); MEAN CORPUSCULAR VOLUME 88.5 FL (78-98); MEAN PLATELET VOLUME 9.3 FL (7.4-10.4); MONOCYTES # (AUTO) 0.5 X10'3 (0-0.9); NEUTROPHILS # (AUTO) 4.7 X10'3 (1.8-7.7); NEUTROPHILS % (AUTO) 71.8 % (42-75); PLATELET COUNT 386 X10'3 (140-440); RED BLOOD COUNT 3.62 X10'6 (4.20-5.60); WHITE BLOOD COUNT 6.6 X10'3 (4.5-11.0)
[2021-05-01 12:44] LABS: ALANINE AMINOTRANSFERASE 18 U/L (12-78); ALBUMIN 2.6 G/DL (3.4-5.0); ALBUMIN/GLOBULIN RATIO 0.7 (1.1-1.5); ALKALINE PHOSPHATASE 113 IU/L (46-116); ANION GAP 9 (8-16); ASPARTATE AMINO TRANSFERASE 23 U/L (10-37); BILIRUBIN,TOTAL 0.2 MG/DL (0.1-1.0); BLOOD UREA NITROGEN 22 MG/DL (7-18); BUN/CREATININE RATIO 25.3 (6.6-38.0); CALCIUM 8.8 MG/DL (8.5-10.1); CHLORIDE 105 MMOL/L (99-107); CREATININE 0.87 MG/DL (0.40-0.90); GLUCOSE 105 MG/DL (70-104); POTASSIUM 4.8 MMOL/L (3.5-5.1); SODIUM 141 MMOL/L (135-145); TOTAL CARBON DIOXIDE 27.5 MMOL/L (24-32); TOTAL PROTEIN 6.4 G/DL (6.4-8.2); eGFR 62 ML/MIN
[2021-05-01 13:57] LABS: CLARITY,URINE SLIGHTLY CLOUDY (Clear); COLOR,URINE YELLOW (Yellow); GLUCOSE, URINE NEGATIVE (Neg); KETONES,URINE NEGATIVE (Neg); LEUKOCYTE ESTERASE ,URINE SMALL (Neg); NITRITES, URINE NEGATIVE (Neg); OCCULT BLOOD,URINE SMALL (Neg); PROTEIN,URINE NEGATIVE (Neg); URINE AMPHETAMINE SCREEN NEGATIVE (Neg); URINE BARBITUATE SCREEN NEGATIVE (Neg); URINE BENZODIAZEPINES SCREEN NEGATIVE (Neg); URINE CANNABINOID SCREEN NEGATIVE (Neg); URINE COCAINE SCREEN NEGATIVE (Neg); URINE METHADONE SCREEN NEGATIVE (Neg); URINE OPIATE SCREEN NEGATIVE (Neg); URINE PHENCYCLIDINE SCREEN NEGATIVE (Neg); UROBILINOGEN,URINE 0.2 E.U/dL (0.2-1.0)
[2021-05-01 14:01] LABS: UA COLLECTION TYPE CLN CATCH MIDSTREAM
[2021-05-01 14:02] LABS: BACTERIA,URINE 2+ /HPF (Neg); MUCUS STRANDS FEW /LPF (Neg); SQUAMOUS EPITHELIAL CELL,UR FEW /LPF (FEW); WBC,URINE 30-50 /HPF (0-4)
[2021-05-01] MEDS ORDERED: ringers solution, lacted 1,000 ML IV ONE (14:45)
[2021-05-01] MEDS ORDERED: piperacillin/tazo 3.375gm/50ml 50 ML IV ONE (14:49)
[2021-05-01] MEDS ORDERED: CefTRIAXone/D5W-Rocephin 1gm 50 ML IV ONE (15:30)
[2021-05-01] MEDS ORDERED: cephalexin 500mg capsule PO ONE (17:35)
--- NOTE | 2021-05-01 18:18 | NUR ---
Dr. Velasquez changed abx from rocephin to keflex. Patient is to be on keflex until urine sensitivity results. If patient still needs antibiotic for UTI a stop time and date needs to be placed, if the sample results in a false positive than antibiotic needs to be discontinued. Martha RN aware of change.
[2021-05-01] MEDS ORDERED: risperiDONE 0.5mg tablet PO ONE (18:50)
--- NOTE | 2021-05-01 21:12 | NUR ---
The patient appears to be sleeping
--- NOTE | 2021-05-02 07:40 | NUR ---
Breakfast request faxed to dietary.
--- NOTE | 2021-05-02 08:30 | NUR ---
Patient given crackers and water.
--- NOTE | 2021-05-02 09:15 | NUR ---
Patient has not received breakfast; called dietary, no answer.
--- NOTE | 2021-05-02 09:20 | NUR ---
Patient given sandwich.
--- NOTE | 2021-05-02 09:28 | NUR ---
Patient given breakfast tray.
--- NOTE | 2021-05-02 10:45 | NUR ---
Received patient from main ED. Pt was transported to bed #23 via wheelchair. Pt presents confused. Warm blankets were placed on patient and water pitcher placed at bedside.
--- NOTE | 2021-05-02 11:00 | NUR ---
PATIENT HAS A POSITIVE COVID TEST. PT HAS ALREADY COMPLETED HER 10-DAY QUARANTINE. PT'S PREVIOUS ADMISSION TO [facility] WAS 04/13. COVID POSITIVE ON 04/13 ADMIT.
--- NOTE | 2021-05-02 11:44 | NUR ---
Pt's ex is at bedside. Conversation intermittent.
--- NOTE | 2021-05-02 11:58 | NUR ---
Pt sitting up eating lunch, assisted by her Russ her ex-. He states pt's family is estranged from her. They were for eighteen years.
--- NOTE | 2021-05-02 13:41 | NUR ---
Pt requesting to call her ex- Noted pt had a urine incontinent episode. Pt's bedding and clothing were changed. Pt's heels were floated. Pt say's "thank you." "You take good care of me." "I am glad you are happy." Addendum: 05/02/21 at 1345 by JASSI Odor of urine was musty.
--- NOTE | 2021-05-02 14:02 | NUR ---
Pt c/o feeling dizzy "Can you do something for my dizziness?" Vitals obtained and WNL. Will continue to monitor.
--- NOTE | 2021-05-02 14:04 | NUR ---
CALLED [facility] ([facility]) AGAIN FOR CURRENT MED LIST. NO ONE ANSWERED, LEFT MESSAGE.
[2021-05-02] MEDS ORDERED: SERT25TA PO (14:29)
[2021-05-02] MEDS ORDERED: APIX2.5T PO (14:29)
[2021-05-02] MEDS ORDERED: FAMO-128 PO (14:29)
--- NOTE | 2021-05-02 14:45 | NUR ---
Received phone call from [facility] - Case management is sending out packets for placement. [facility] has declined to take patient back.
--- NOTE | 2021-05-02 15:09 | NUR ---
Received order for Antivert 25mg once time dose r/t c/o dizziness. Addendum: 05/02/21 at 1548 by JASSI Received from Dr. Agarwal
[2021-05-02] MEDS ORDERED: meclizine 12.5mg tablet PO ONE ×2 (15:20→17:00)
--- NOTE | 2021-05-02 15:31 | NUR ---
Administered Antivert. Will continue to monitor.
--- NOTE | 2021-05-02 15:56 | NUR ---
Pt sat up requested "some milk." Pt also requested to use the bathroom. Due to pt's unsteady gait a bedside commode was placed by the bed and pt is on Eliquis. Pt thanks PCT "You take such good care of me."
--- NOTE | 2021-05-02 16:58 | NUR ---
Pt got up out of bed, continues to have an unsteady gait. Pt was redirected to bed with assistance.
--- NOTE | 2021-05-02 18:40 | NUR ---
The patient had a visit from her exhusband, Russ, who presents as supportive. She remains confused and is only oriented to herself. Currently she is not agitated. She is a high fallrisk and her bed assignment is directly in front of the nursing station.
--- NOTE | 2021-05-02 19:56 | NUR ---
The patient is restless and confused. She is pleasant.
[2021-05-02] MEDS: apixaban 2.5mg tablet PO SCH (20:13)
[2021-05-02] MEDS: sertraline 50mg tablet PO SCH (20:13)
[2021-05-02] MEDS: risperiDONE 0.5mg tablet PO SCH (20:13)
--- NOTE | 2021-05-02 21:08 | NUR ---
The patient appears to be sleeping
--- NOTE | 2021-05-02 22:55 | NUR ---
The patient appears to be sleeping
--- NOTE | 2021-05-02 23:24 | NUR ---
The patient appears to be sleeping
--- NOTE | 2021-05-03 00:28 | NUR ---
The patient appears to be sleeping
--- NOTE | 2021-05-03 02:24 | NUR ---
The patient appears to be sleeping
--- NOTE | 2021-05-03 05:15 | NUR ---
The patient appears to be sleeping
--- NOTE | 2021-05-03 06:00 | NUR ---
CARE ASSUMED FROM MAHAD DIAZ OFF GOING NURSE. PT. VISIBLE ON THE UNIT RESTING WITH EYES CLOSED. NO DISTRESS NOTED. STAFF WILL CONTINUE TO MONITOR FOR SAFETY.
[2021-05-03] MEDS ORDERED: cephalexin 250mg capsule PO ONE (08:00)
[2021-05-03] MEDS: famotidine 20mg tablet PO SCH (08:17)
[2021-05-03] MEDS: meclizine 12.5mg tablet PO PRN (08:18)
[2021-05-03] MEDS: apixaban 2.5mg tablet PO SCH ×2 (08:20→20:18)
--- NOTE | 2021-05-03 09:36 | NUR ---
DR ROA AT BEDSIDE TO ASSESS PATIENT AT THIS TIME. MADE AWARE PATIENT IS VERY CONFUSED, HISTORY OF AGGRESSION, AND TRIES TO GET OUT OF BED, ON ELIQUIS.
--- NOTE | 2021-05-03 09:46 | NUR ---
Ann from [facility] [employer] called and they are sending packets out for exterminator helper care out of the area. Just holding pt until save discharge can happen
--- NOTE | 2021-05-03 09:51 | NUR ---
pt is very confused, keeps asking for us to "help her". She keeps wanting to get out of bed but doesn't know where she is going. Pt did get aggitated when we wouldn't let her get up and walk.
--- NOTE | 2021-05-03 11:49 | NUR ---
PT. PRESENTS CONFUSED AND REQUIRES FREQUENT REDIRECTING FROM STAFF. PT. FOCUSED ON HER CAT MCKENZIE. PT. CONTINUS TO TRY GET OUT OF BED TO CHECK ON HER CAT. PT. REDIRECTED WITHOUT ANY INCIDENCE. PT. REMAINS VISIBLE IN FRONT OF NURSES STATION IN BED #23, BED IN LOWEST POSITION AND SIDERAILS UP X3 FOR SAFETY. STAFF WILL CONTINUE TO MONITOR FOR SAFETY.
--- NOTE | 2021-05-03 12:25 | NUR ---
PT. EX- AT BEDSIDE VISITING.
[2021-05-03] MEDS ORDERED: OLANZapine 5mg rapidly disint. tablet PO ONE (14:25)
--- NOTE | 2021-05-03 14:34 | NUR ---
Note jeyson in ED - 05/04/21 at 0827 by ANN PT. SCHEDULED FOR 1300 DOSE OF SUBOXONE. PT. REMAINS SLEEPING WITH EYES CLOSED. 1300 DOSE HELD AT THIS TIME. WILL CONTINUE TO MONITOR FOR SAFETY.
--- NOTE | 2021-05-03 14:37 | NUR ---
PT. MEDICATED WITH ZYPREXA 5MG PO FOR INCREASED AGITATION. STAFF WILL CONTINUE TO MONITOR FOR SAFETY.
--- NOTE | 2021-05-03 16:40 | NUR ---
PT. REMAINS VISIBLE ON THE UNIT RESTING QUIETLY. NO DISTRESS NOTED.
--- NOTE | 2021-05-03 19:37 | NUR ---
PATIENT RECEIVED ON THE UNIT IN NO OBVIOUS DISTRESS. NO PHYSICAL COMPLAINT MADE.PATIENT APPEARS TO BE CONFUSED. OBSERVATION ONGOING
[2021-05-03] MEDS: sertraline 50mg tablet PO SCH (20:18)
[2021-05-03] MEDS: risperiDONE 0.5mg tablet PO SCH (20:19)
[2021-05-03] MEDS: LORazepam 0.5 MG tablet PO PRN (21:22)
--- NOTE | 2021-05-03 21:29 | NUR ---
PATIENT AWAKE, PATIENT TO BE CONFUSE AND ANXIOUS. ATIVAN 0.5 MG WAS GIVEN PO
--- NOTE | 2021-05-03 22:31 | NUR ---
PATIENT IS NOW RESTING QUIETLY.
--- NOTE | 2021-05-04 05:32 | NUR ---
PATIENT SLEPT INTERMITTENTLY THROUGHOUT THE NIGHT.PATIENT APPEARS TO BE CONFUSE, ABIT AGITATED AT TIMES. OBSERVATION ONGOING.
[2021-05-04] MEDS: LORazepam 0.5 MG tablet PO PRN (05:55)
--- NOTE | 2021-05-04 06:00 | NUR ---
PT. CARE ASSUMED FROM WILLIE DIAZ. PT. VISIBLE ON THE UNIT RESTING QUIETLY WITH EYES CLOSED. NO DISTRESS NOTED. STAFF WILL CONTINUE TO MONITOR FOR SAFETY.
[2021-05-04] MEDS: famotidine 20mg tablet PO SCH (08:00)
[2021-05-04] MEDS: apixaban 2.5mg tablet PO SCH ×2 (08:00→20:48)
--- NOTE | 2021-05-04 08:20 | NUR ---
PT. BREAKFAST TRAY AT BEDSIDE. PT. ALLOWED TO SLEEP AT THIS TIME DUE TO BEING UP DURING THE NIGHT. STAFF WILL REHEAT BREAKFAST TRAY ONCE PATIENT IS AWAKE.
--- NOTE | 2021-05-04 11:54 | NUR ---
PT. VISIBLE ON THE UNIT RESTING WITH EYES CLOSED. STAFF WILL AWAKEN PT. FOR LUNCH .
--- NOTE | 2021-05-04 12:16 | NUR ---
PT. SCRATCHED SCAB FROM RT. HIP TROCHANTER AREA. AREA CLEANED WITH NS AND FOAM DRESSING APPLIED. WOUND CONSULT PLACED. PT. PLACED ON HER LEFT SIDE WITH PILLOWS TO CUSHION BONY AREAS. STAFF WILL CONTINUE TO MONITOR . Addendum: 05/04/21 at 1226 by DPHILLIPS HYGIENE CARE PERFORMED. PT. REMAINS DROWSY DUE TO RECEIVING ATIVAN PRIOR TO CHANGE OF SHIFT THIS MORNING FOR INCREASED AGITATION. MORNING MEDICATIONS HELD DUE TO RISK FOR ASPIRATION. STAFF WILL CONTINUE TO MONITOR
--- NOTE | 2021-05-04 14:46 | NUR ---
PT. REPOSITIONED TO BACK SIDE. NO S/S OF DISTRESS NOTED. STAFF WILL CONTINUE TO MONITOR FOR SAFETY.
--- NOTE | 2021-05-04 19:18 | NUR ---
PATIENT RECEIVED RESTING IN BED . NO OBVIOUS DISTRESS NOTED. PATIENT IS BREATHING SPONTANOUSLY ON ROOM AIR. SHE APPEARS CONFUSED. BEING NURSE WITH SIDE RAILS UP FOR SAFETY. OBSERVATION ONGOING.
[2021-05-04] MEDS: sertraline 50mg tablet PO SCH (20:48)
[2021-05-04] MEDS: risperiDONE 0.5mg tablet PO SCH (20:48)
--- NOTE | 2021-05-05 01:24 | NUR ---
PATIENT ASLEEP BUT EASILY AROUSE. NO OBVIOUS DISTRESS NOTED
--- NOTE | 2021-05-05 04:05 | NUR ---
PATIENT ASLEEP BUT EASILY AROUSE. NO OBVIOUS DISTRESS NOTED. OBSERVATION ONGOING.
--- NOTE | 2021-05-05 06:00 | NUR ---
PT. CARE ASSUMED FROM OFF GOING NURSE WILLIE DIAZ. PT. RESTING QUIETLY WITH NO SIGNS OF DISTRESS NOTED. STAFF WILL CONTINUE TO MONITOR FOR SAFETY.
--- NOTE | 2021-05-05 06:05 | NUR ---
PATIENT RESTING IN NO OBVIOUS DISTRESS. OBSERVATION ONGOIING.
--- NOTE | 2021-05-05 07:15 | NUR ---
CULTURE AND SENSITIVITY REPORT PRINTED AND GIVEN TO DR. ROA FOR REVIEW.
--- NOTE | 2021-05-05 07:30 | NUR ---
THIS EDUCATION COUNSELOR SPOKE WITH CARMELO (CHARGE NURSE) IN REGARDS TO POSSIBLY TRANSFERRING PT. TO MEDICAL UNIT. PT. CURRENT NOT ON ANY MENTAL HEALTH HOLDS AND DOESN'T HAVE ANY BX. ISSUES. PT. AWAITNG INTERMEDIATE CARE PLACEMENT.
[2021-05-05] MEDS: famotidine 20mg tablet PO SCH (11:21)
[2021-05-05] MEDS: apixaban 2.5mg tablet PO SCH ×2 (11:22→20:34)
[2021-05-05] MEDS: meclizine 12.5mg tablet PO PRN (15:05)
--- NOTE | 2021-05-05 16:03 | NUR ---
Assumed care of patient laying in bed. Patient with memory problems keeps getting up out of bed. Patient up to void with assistance of tech. Just noted straight cath order from this a.m. will attempt to obtain when patient needs to void.
--- NOTE | 2021-05-05 17:00 | NUR ---
straight cath performed, urine sent to lab. Patient attempting to get out of bed, and staff has to keep putting her back in bed.
[2021-05-05 17:07] LABS: CLARITY,URINE CLEAR (Clear); COLOR,URINE YELLOW (Yellow); GLUCOSE, URINE NEGATIVE (Neg); KETONES,URINE TRACE mg/dl (Neg); LEUKOCYTE ESTERASE ,URINE NEGATIVE (Neg); NITRITES, URINE NEGATIVE (Neg); OCCULT BLOOD,URINE NEGATIVE (Neg); PH,URINE 5.5 (4.8-8.0); PROTEIN,URINE NEGATIVE (Neg)
[2021-05-05 17:10] LABS: UA COLLECTION TYPE STRAIGHT CATH
--- NOTE | 2021-05-05 17:56 | NUR ---
Patient's U/A came back, no UTI. Patient is getting up frequently to void. Diaper changed.
[2021-05-05] MEDS: risperiDONE 0.5mg tablet PO SCH (20:34)
[2021-05-05] MEDS: sertraline 50mg tablet PO SCH (20:34)
--- NOTE | 2021-05-05 21:34 | NUR ---
PATIENT RECEIVED ON THE UNIT IN NO OBVIOUS DISTRESS BUT ABIT RESTLESS. NO PHYSICAL DISTRESS NOTED. PATIENT IS AGITATED AND ANXIOUS.
--- NOTE | 2021-05-05 21:36 | NUR ---
PATIENT ATTEMPTS TO GET OUT OF BED AND FALL TO THE FLOOR AND HER BOTTOM. NO HEAD INJURY NOTED. PATIENT WAS ASSIST IN BED.
[2021-05-05] MEDS: LORazepam 0.5 MG tablet PO PRN (21:43)
--- NOTE | 2021-05-06 02:07 | NUR ---
PATIENT AWAKE, PAMPER CHANGE DONE.OBSERVATION ONGOING
--- NOTE | 2021-05-06 06:03 | NUR ---
PATIENT HYGIENIC NEEDS WERE MET. PATIENT IS IN NO OBVIOUS DISTRESS. ONGOING
--- NOTE | 2021-05-06 07:08 | NUR ---
patient received in bed 15.
--- NOTE | 2021-05-06 07:12 | NUR ---
PATIENT ASLEEP.WE WILL MONITOR.
--- NOTE | 2021-05-06 08:00 | NUR ---
3 SIDE RAILS UP.BED LOW.WE WILL MONITOR.
[2021-05-06] MEDS: famotidine 20mg tablet PO SCH (08:49)
[2021-05-06] MEDS: apixaban 2.5mg tablet PO SCH ×2 (08:49→20:40)
--- NOTE | 2021-05-06 09:03 | NUR ---
Patient up and awake, alert and cooperative with staff. Sitting up at bedside eating breakfast.
--- NOTE | 2021-05-06 09:47 | NUR ---
Patient asleep. Resting comfortably. Will continue to monitor.
--- NOTE | 2021-05-06 14:45 | NUR ---
SPOKE TO JUSTA AND SAID DC PLANNERS SENT OUT PACKAGE/BRAN AT 1130 YESTERDAY IN [facility]-PT IS HARD TO PLACE.LOREN MADE AWARE THAT PATIENT HAS NO BEHAVIORAL ISSUES TODAY AND THAT PT HAD UTI AND DEMENTIA WHICH COULD CONTRIBUTE TO PATIENT'S BEHAVIOR AT THE FACILITY.
--- NOTE | 2021-05-06 15:05 | NUR ---
PATIENT FOUND ON THE FLOOR,DENIES PAIN,ABLE TO GET UP WITH 2 PERSON ASSIST,TAB ALARM ON,DR. BIRD MADE AWARE.WE WILL MONITOR.
--- NOTE | 2021-05-06 15:17 | NUR ---
incident report completed,CN Radha aware.
--- NOTE | 2021-05-06 15:30 | NUR ---
PATIENT'S DEPENDS CHANGED.MARINAN WARM BLANKET.
--- NOTE | 2021-05-06 16:27 | NUR ---
patient in bed asleep.
--- NOTE | 2021-05-06 18:27 | NUR ---
PT patient transferred to [facility] at 1750. No adverse events after fall. Patient still has no complaints of pain. AxO to self (baseline). Report called to EMILY Juarez.
--- NOTE | 2021-05-06 18:53 | NUR ---
PATIENT WAS BROUGHT OVER FROM THE MAIN ED. IT WAS REPORTED THAT HAD FELL IN THE ED ON THE PREVIOUS SHIFT. NO PHYSICAL INJURY HAD SUSTAIN. PATIENT LYING IN BED NO OBVIOUS DISTRESS NOTED. PATIENT HAD SUPPER.
[2021-05-06] MEDS: risperiDONE 0.5mg tablet PO SCH (20:40)
[2021-05-06] MEDS: sertraline 50mg tablet PO SCH (20:40)
[2021-05-06] MEDS: LORazepam 0.5 MG tablet PO PRN (21:02)
--- NOTE | 2021-05-06 21:07 | NUR ---
PATIENT BECAME AGITATED AND ANXIOUS, ATTEMPTING TO GET OUT OF THE BED. ATIVAN 0.5 MG PO GIVEN.
--- NOTE | 2021-05-07 | NUR ---
PATIENT ASLEEP IN NO OBVIOUS DISTRESS. OBSERVATION ONGOING.
--- NOTE | 2021-05-07 02:05 | NUR ---
PATIENT ASLEEP BUT EASILY AROUSE. OBSERVATION ONGOING.
--- NOTE | 2021-05-07 04:33 | NUR ---
PATIENT ASLEEP BUT EASILY AROUSE. NO OBVIOUS DISTRESS NOTED. OBSERVATION ONGOING.
--- NOTE | 2021-05-07 05:58 | NUR ---
PATIENT HYGEINIC NEEDS MET. NO OBVIOUS DISTRESS NOTED
--- NOTE | 2021-05-07 06:00 | NUR ---
PT. CARE ASSUMED FROM WILLIE DIAZ OFF GOING NURSE. PT. VISIBLE ON THE UNIT IN BED #23 RESTING QUIETLY WITH EYES CLOSED. PT. REMAINS VISIBLE TO [facility] LINE OF SIGHT WITH BED IN LOWEST POSITION AND SIDERAILS UP X3 FOR SAFETY. STAFF WILL CONTINUE TO MONITOR FOR SAFETY.
--- NOTE | 2021-05-07 06:45 | NUR ---
PT. OFF UNIT WITH STAFF. PT. TRANSPORTED TO CT SCAN. CT SCAN OF HEAD ORDERED STAT. PT. HAS FALLEN TWICE ON THE UNITR. STAFF WILL CONTINUE TO MONITOR.
--- NOTE | 2021-05-07 07:00 | NUR ---
PT. BACK ON THE UNIT AFTER CT SCAN. BED PLACED IN LOWEST POSITION WITH SIDERAILS UP X3 FOR SAFETY.
--- NOTE | 2021-05-07 09:21 | NUR ---
PT. VISIBLE ON THE UNIT RESTING QUIETLY WITH EYES CLOSED. STAFF WILL CONTINUE TO MONITOR FOR SAFETY.
[2021-05-07] MEDS: levoFLOXACIN 500mg tablet PO SCH (12:20)
[2021-05-07] MEDS: famotidine 20mg tablet PO SCH (12:20)
[2021-05-07] MEDS: apixaban 2.5mg tablet PO SCH ×2 (12:20→20:15)
--- NOTE | 2021-05-07 12:28 | NUR ---
MHT AT BEDSIDE ASSISTING PATIENT WITH LUNCH TRAY. PATIENT COMPLIANT WITH SCHEDULED MORNING MEDICATIONS .
--- NOTE | 2021-05-07 12:43 | NUR ---
PT. NOW AWAKE AFTER EATING LUNCH THIS REDUCING SYSTEM OPERATOR IS NOW ABLE TO PERFORM DAILY ASSESSMENT. PT. PRESENTS CALM AND COOPERATIVE WITH ASSESSMENT. PT. NOTED TO HAVE A GREENISH/YELLOWISH BRUISE TO UPPER LEFT ARM AREA WITH SKIN THAT IS INTACT. RIGHT HIP HAS FOAM DRSG THAT IS D/I TO AN OLD WOUND THAT PATIENT REMOVED SCAB FROM. PT. HAS NOT VERBALIZED ANY OTHER COMPLAINTS AT THIS TIME. REMAINS IN LINE OF SIGHT OF THE NURSES WITH BED IN LOWEST POSITION AND SIDERAILS UP X3 FOR SAFETY. STAFF WILL CONTINUE TO MONITOR FOR CHANGES.
--- NOTE | 2021-05-07 12:57 | NUR ---
PHYSICAL THERAPY AT BEDSIDE TO EVALUATE PATIENT.
--- NOTE | 2021-05-07 13:00 | NUR ---
PHYSICAL THERAPY UNABLE TO EVALUATE PATIENT. PT. STATES COVER ME UP, DON'T WAKE ME LET ME SLEEP. PHYSICAL THERAPIST ASK STAFF TO NOTIFY THEM WHEN THE PATIENT IS FULLY AWAKE AND WOULD BE RECEPTIVE TO WORKING WITH THEM.
--- NOTE | 2021-05-07 13:47 | NUR ---
PT. EX AT BEDSIDE.
--- NOTE | 2021-05-07 14:51 | NUR ---
PT. REQUESTING TO USE BSC DURING TRANSFER TO [place] PT. BEGAN COMPLAINING OF LEFT LEG PAIN. PT. NOTED TO BE GUARDING LEFT LEG AND YELLS OUT IN PAIN. CHARGE NURSE NOTIFIED OF FINDING AND WILL SPEAK WITH DOCTOR.
[2021-05-07] MEDS ORDERED: acetaminophen 325mg tablet PO ONE (15:00)
--- NOTE | 2021-05-07 15:01 | NUR ---
Primary RN called and notified me regarding patients increased left hip pain over the last few hours. Patient had a previous fall in the hospital and now has excruciating pain with movement per staff she is unable to bear weight. Addendum: 05/07/21 at [address] Ambriz notified and will be placing orders for left hip xray and some pain medication. Primary RN aware of new orders.
--- NOTE | 2021-05-07 15:22 | NUR ---
RAD. AT BEDSIDE TO PERFORM XRAY OF LEFT HIP.
[2021-05-07] MEDS: LORazepam 0.5 MG tablet PO PRN (17:25)
[2021-05-07] MEDS: meclizine 12.5mg tablet PO PRN (17:25)
--- NOTE | 2021-05-07 17:42 | NUR ---
PT. REMAINS VISIBLE ON THE UNIT SITTING IN BED EATING CHIPS. PT. REQUIRES FREQUENT REDIRECTING FROM STAFF. BED IN LOWEST POSITION AND SIDERAILS X3 FOR SAFETY. STAFF WILL CONTINUE TO MONITOR FOR SAFETY.
--- NOTE | 2021-05-07 18:28 | NUR ---
PATIENT RECEIVED ON THE UNIT IN NO OBVIOUS DISTRESS. PATIENT TRYING TO GET OUT OF BED. BED ALARM ON. PATIENT APPEARS CONFUSED. NUTRITIONAL NEEDS MET. OBSERVATION ONGOING.
[2021-05-07] MEDS: risperiDONE 0.5mg tablet PO SCH (20:15)
[2021-05-07] MEDS: sertraline 50mg tablet PO SCH (20:16)
--- NOTE | 2021-05-07 22:28 | NUR ---
PATINT ASLEEP BUT EASILY AROUSE. NO OBVIOUS DISTRESS NOTED
--- NOTE | 2021-05-08 06:02 | NUR ---
PATIENT IS IN NO OBVIOUS DISTRESS. HYGIENIC NEEDS MET.
--- NOTE | 2021-05-08 07:00 | NUR ---
Pt resting comfortably in mid pino's position. Respirations even and unlabored.
[2021-05-08] MEDS: famotidine 20mg tablet PO SCH (08:41)
[2021-05-08] MEDS: levoFLOXACIN 500mg tablet PO SCH (08:41)
[2021-05-08] MEDS: apixaban 2.5mg tablet PO SCH ×2 (08:41→19:28)
--- NOTE | 2021-05-08 08:59 | NUR ---
PCT at bedside feeding patient. Pt remains calm, no c/o pain. Pt in LOS of nurses station, 3 side rails up for pt safety, bed low. Pt was medication compliant.
[2021-05-08] MEDS: meclizine 12.5mg tablet PO PRN (09:09)
--- NOTE | 2021-05-08 09:12 | NUR ---
Pt c/o feeling dizzy. Meclizine 25mg PRN was administered, will continue to monitor.
--- NOTE | 2021-05-08 10:25 | NUR ---
Pt up to bedside commode. Underpad and new depends placed. Pt alert, asking for her potatoe chips.
--- NOTE | 2021-05-08 10:59 | NUR ---
Pt lying in bed in pino's position. Pt resting comfortably, no sign of distress.
--- NOTE | 2021-05-08 13:03 | NUR ---
Patient up eating breakfast with minimal assist. Pt alert.
--- NOTE | 2021-05-08 14:51 | NUR ---
Patient requires some redirection to stay in bed. Pt keeps asking for her ice cream,flex o writer operator reminded her she already ate it.
--- NOTE | 2021-05-08 15:30 | NUR ---
Patient up to bedside commode with assistance of Tech and RN. Patient is repetitive questioning and appears to have dementia. Continue to monitor.
--- NOTE | 2021-05-08 16:01 | NUR ---
Patient's ex- visiting patient. No distress observed. Continue to monitor.
--- NOTE | 2021-05-08 18:09 | NUR ---
Tech assisting patient to eat. No distress observed. Continue to monitor.
--- NOTE | 2021-05-08 18:20 | NUR ---
Pt sitting up in bed being assisted by staff to eat her meal. Pt ate 75% of meal.
[2021-05-08] MEDS ORDERED: mag hydrox/Alum hydrox/simeth 30ml oral suspension PO PRN (19:15)
[2021-05-08] MEDS: risperiDONE 0.5mg tablet PO SCH (19:28)
[2021-05-08] MEDS: LORazepam 0.5 MG tablet PO PRN (19:28)
--- NOTE | 2021-05-08 19:30 | NUR ---
pictures taken on R hip pressure ulcer and heels, which are reddened. Dressing change done on R hip. Heels floated off the bed, pt turned to left side to take pressure off of R side.
--- NOTE | 2021-05-08 19:45 | NUR ---
Pt assisted to bedside commode, urinares, then helped back into bed. Max assist.
--- NOTE | 2021-05-08 20:23 | NUR ---
Pt takes HS medications without issue. She is insistant on layong on her R side despite RN lecturing her on her R hip. Staff positioned her on left side and 30 seconds later pt shifts to R side and says " sorry but I can't get comfortable on that other side."
--- NOTE | 2021-05-08 20:24 | NUR ---
Pt calls "Nurse " "Nurse" every 2 minutes incessantly. She either wants "help" which she cannot decide what she needs, or she wants to call someone and cannot remember the phone number.
[2021-05-08] MEDS ORDERED: risperiDONE 0.5mg tablet PO ONE (20:55)
[2021-05-08] MEDS: sertraline 50mg tablet PO SCH (21:13)
--- NOTE | 2021-05-08 21:15 | NUR ---
Pt states she is having trouble sleeping and keeps trying to get up out of the bed unassisted even after staff educates her on fall hazards. Dr. Oliveira consulted and risperdal 1 mg given.
--- NOTE | 2021-05-08 22:30 | NUR ---
pt is sleeping on back, respirations even and unlabored
--- NOTE | 2021-05-09 | NUR ---
STAFF MUST SIT AT BEDSIDE WITH PT FOR FALL PREVENTION. PT WILL NOT TAKE DIRECTION TO STAY IN BED AND GETS UP CONSTANTLY. SHE HAS NO REASONING FOR BEING UP, SHE IS CONFUSED AND HARDLY SLEEPS.
--- NOTE | 2021-05-09 01:00 | NUR ---
Pt states she is hungry, pt fed yogurt and chips.
--- NOTE | 2021-05-09 01:30 | NUR ---
pt appears to be asleep, but then will call out "nurse, nurse" until staff comes to her bedside. when asked what she needs she usually says to turn a specific way, which staff helps her with, only to completely move in another direction 2 minutes after.
--- NOTE | 2021-05-09 03:00 | NUR ---
pt asleep on back, respirations WNL
--- NOTE | 2021-05-09 05:53 | NUR ---
Pt sleeping respirations even and unlabored
--- NOTE | 2021-05-09 06:30 | NUR ---
Pt sleeping, no apparent distress or needs at this time. NOC shift reported that pt just fell asleep and was awake most of the night.
--- NOTE | 2021-05-09 07:30 | NUR ---
Pt asleep, no change in condition, no apparent distress or needs.
--- NOTE | 2021-05-09 07:50 | NUR ---
Pt up to bedside commode with 2 person assist. Pt confused, difficulty following commands. Voided UA in commode and moved back into bed. Diaper was changed, saturated with urine. Pillow placed under right hip (pt insists on laying on that side, cannot get her to cooperate to lay on left), and inbetween knees. Heels floated. Pt given 2 warm blankets and is back asleep.
[2021-05-09] MEDS: apixaban 2.5mg tablet PO SCH ×2 (08:00→19:58)
[2021-05-09] MEDS: famotidine 20mg tablet PO SCH (08:00)
--- NOTE | 2021-05-09 08:10 | NUR ---
Removed morning medications with exception of Levaquin. Levaquin states that it should be given 2 hours before or 4 hours after dairy and antacids. It was to be given with her morning dose of Pepcid, and her breakfast this morning contained a cup of dairy plus creamer. Called pharmacy, and they agreed to give it to her in the evening at 2000. Will give medications when pt wakes up for breakfast.
--- NOTE | 2021-05-09 08:28 | NUR ---
Spoke to Tammi lynn on pt being here for a long while. Called for a phyician to review pts meds to maybe help her sleep and relax. Noted pt should be a 1 to 1
[2021-05-09] MEDS ORDERED: haloperidol 5mg tablet PO ONE (08:35)
--- NOTE | 2021-05-09 08:40 | NUR ---
Spoke with Dr. Rahman re: daily medication for anxiety/sedation as needed. MD ordered a one time dose of Haldol which is not needed at this time. Pt sleeping. Will administer when pt wakes up.
--- NOTE | 2021-05-09 08:55 | NUR ---
Pt still asleep, no apparent distress or needs
--- NOTE | 2021-05-09 09:02 | NUR ---
Pt's height in chart noted to 124". This is incorrect. Height approximately 61".
--- NOTE | 2021-05-09 09:37 | NUR ---
Pt sleeping, no apparent distress or needs at this time. Going through medication list with pharmacy and MD.
--- NOTE | 2021-05-09 10:44 | NUR ---
Pt awakened for about 5 min c/o dizziness. Medications given. Pt tucked back into bed and fell back asleep.
--- NOTE | 2021-05-09 11:25 | NUR ---
Pt awake, ate her eggs and drank most of her milk. Did not want applesauce. Requested mashed potatoes for lunch. Turned pt to left side again, but was unsuccessful in getting pt to remain on that side. Pt repositioned with pillows, etc, but turned back onto right side and refused to be repositioned. Spoke with MD about physical therapy consult, wound care and repeat labs to check H&H.
[2021-05-09 12:11] LABS: BASOPHILS # (AUTO) 0.1 X10'3 (0-0.2); BASOPHILS % (AUTO) 1.1 % (0-1); EOSINOPHILS # (AUTO) 0.3 X10'3 (0-0.9); EOSINOPHILS % (AUTO) 5.9 % (0-6); HEMATOCRIT 32.7 % (35.0-45.0); HEMOGLOBIN 10.6 g/dl (12.0-16.0); LYMPHOCYTES # (AUTO) 1.3 X10'3 (1.1-4.8); MEAN CORPUSCULAR HEMOGLOBIN 28.9 PG (27.0-31.0); MEAN CORPUSCULAR HGB CONC 32.4 g/dL (33.0-36.5); MEAN PLATELET VOLUME 8.3 FL (7.4-10.4); MONOCYTES # (AUTO) 0.5 X10'3 (0-0.9); MONOCYTES % (AUTO) 8.3 % (2-12); NEUTROPHILS # (AUTO) 3.5 X10'3 (1.8-7.7); NEUTROPHILS % (AUTO) 61.7 % (42-75); PLATELET COUNT 327 X10'3 (140-440); RED BLOOD COUNT 3.67 X10'6 (4.20-5.60); RED CELL DISTRIBUTION WIDTH 15.7 % (11.5-14.5); WHITE BLOOD COUNT 5.7 X10'3 (4.5-11.0)
--- NOTE | 2021-05-09 12:27 | NUR ---
Labs drawn, pt's lunch here, pt drifted back to sleep on back. Pt to come and evaluate pt.
--- NOTE | 2021-05-09 12:34 | NUR ---
Pt awoke for lunch. Asked to feed herself. Pt doing a good job without spilling. Physical therapy to evaluate and treat shortly. Pt still confused. She dumped her milk on her mashed potatoes, and did tried to eat the top of her sippy cup with her spoon. Otherwise, seems to be doing well.
--- NOTE | 2021-05-09 12:47 | NUR ---
PT at bedside
--- NOTE | 2021-05-09 12:58 | NUR ---
PT (physical therapy) at bedside to evaluate pt. Pt fought with PT about getting to the side of the bed and sitting up. Physical therapy used a sheet to stay out of her way and sit her up. Pt was combative and wouldn't participate with physical therapy. Pillow positioned under right hip and pt tilted off of that hip. Very combative and yells if asked to do something that she doesn't want to do.
--- NOTE | 2021-05-09 13:06 | NUR ---
Pt incessantly calling "nurse, help me." even if all needs are met, and constantly tries to get out of bed. Pt wants to be on right side. Agree with previous nurse and tech's assessment that this patient should be a 1:1 due to fall risk.
--- NOTE | 2021-05-09 13:44 | NUR ---
Pt sleeping, no apparent distress or needs.
--- NOTE | 2021-05-09 14:14 | NUR ---
Pt up to bedside commode, unable to tell if she urinated. Pt c/o leg pain in her right leg and hip. Explained the need for physical therapy and movement so her legs wouldn't get stiff. Assisted her to the side of the bed and back into bed after done.
--- NOTE | 2021-05-09 14:19 | NUR ---
Pt up on side of bed to eat yogurt and pudding. Still hungry. Able to feed herself at this time.
--- NOTE | 2021-05-09 14:29 | NUR ---
Pt c/o legs hurting. Pt is unable to understand the need to move and change positions frequently, and goes back to the right side.
--- NOTE | 2021-05-09 14:38 | NUR ---
Pt up to commode and side of bed for more yogurt. Ate 2 yogurts and was helped back into bed.
[2021-05-09] MEDS: LORazepam 0.5 MG tablet PO PRN (14:50)
[2021-05-09 15:02] LABS: ALANINE AMINOTRANSFERASE 17 U/L (12-78); ALBUMIN 2.4 G/DL (3.4-5.0); ALBUMIN/GLOBULIN RATIO 0.6 (1.1-1.5); ALKALINE PHOSPHATASE 102 IU/L (46-116); ANION GAP 9 (8-16); ASPARTATE AMINO TRANSFERASE 18 U/L (10-37); BILIRUBIN,TOTAL 0.3 MG/DL (0.1-1.0); BLOOD UREA NITROGEN 28 MG/DL (7-18); BUN/CREATININE RATIO 28.6 (6.6-38.0); CALCIUM 8.9 MG/DL (8.5-10.1); CHLORIDE 106 MMOL/L (99-107); CREATININE 0.98 MG/DL (0.40-0.90); GLUCOSE 85 MG/DL (70-104); POTASSIUM 5.1 MMOL/L (3.5-5.1); SODIUM 141 MMOL/L (135-145); TOTAL CARBON DIOXIDE 26.5 MMOL/L (24-32); TOTAL PROTEIN 6.6 G/DL (6.4-8.2); eGFR 54 ML/MIN
--- NOTE | 2021-05-09 15:42 | NUR ---
Pt c/o leg pain. Left to ask MD for order for pain medication. Tech stayed with pt, and then pt requested to use the commode. Tech politely refused until I got back so that she wouldn't hurt her back (she has used the commode 5-6x in the last hour, but didn't go), and then yelled at the tech and told her, "I'm the patient and you're going to do what I told you to do." The tech continued to insist that the pt would not get up until she had help, and the pt stated, "If I fall it's on you." Pt seemed to be very alert and oriented at the time of need.
[2021-05-09] MEDS ORDERED: acetaminophen 325mg tablet PO ONE ×3 (15:50→16:05)
--- NOTE | 2021-05-09 16:10 | NUR ---
Pt sleeping, no apparent distress or needs at this time. Will hold Tylenol dose until pt wakes up.
--- NOTE | 2021-05-09 16:12 | NUR ---
Noticed in this morning's exam that pt has a large bruise to left upper arm. No signs of breakdown in buttock area or heels. Pt persistenly refuses to change positions off right side causing further discomfort to that side. Frequently repositioned by staff with pillows and blankets to prevent skin breakdown.
--- NOTE | 2021-05-09 16:18 | NUR ---
Pt repositioned every time she is up to commode or on side of bed. Pt given Tylenol 975mg PO for leg pain per MD order. Pt c/o cold, was given another blanket (has 5 now). No further needs at this time.
--- NOTE | 2021-05-09 16:43 | NUR ---
Pt's ex- is here visiting with pt. He states that she was institutionalized under [employer] [place] for several years. He is unsure of her diagnosis. He states that she has a mental health history and is delusional and gets angry and frustrated frequently.
--- NOTE | 2021-05-09 16:48 | NUR ---
Pt calling ex- Malachi, his name is Russ. She is getting more agitated as he is talking to her and trying to talk her down and explain what is going on. I do believe that it is good for her to continue visiting with him when he is able. He states that he was to her for 31 yrs, and that she never had it "as bad as this." I asked him to describe what delusional was, and he stated, "Well, she called me Malachi." (Malachi is the name of their son).
--- NOTE | 2021-05-09 17:01 | NUR ---
Russ states that she has been like this every few years for a few weeks at a time, and managed it with "herbs." But that she has never been this bad before, although he did state that she has been combative in the past, just "not this bad."
[2021-05-09] MEDS ORDERED: olanzapine 10mg tablet PO STA (17:10)
[2021-05-09] MEDS ORDERED: quetiapine 100mg tablet PO ONE (17:10)
--- NOTE | 2021-05-09 17:11 | NUR ---
Talked with HERB Joya about pt's agitation and combativeness. Pt has been out of bed about 20-30x in the last hour. Toan ordered Zyprexa & Seraquil PO.
--- NOTE | 2021-05-09 17:26 | NUR ---
Pt has been crawling in and out of bed, is able to sit up by herself and has stood a few times (with us close by). However she is unable to do any of those things when asked.
--- NOTE | 2021-05-09 17:28 | NUR ---
No pill-splitter in [facility] cabinet. Called pharmacy and they said they would split the pill (Seroquel) and bring it to us.
--- NOTE | 2021-05-09 17:41 | NUR ---
Pt c/o "needing to take my medicine." Pt has already been given her medicine
[2021-05-09] MEDS ORDERED: sertraline 50mg tablet PO SCH (17:42)
[2021-05-09] MEDS ORDERED: QUEtiapine 25mg tablet PO ONE (17:55)
--- NOTE | 2021-05-09 17:57 | NUR ---
Pt knew when she had had all of the medications that she needed. After the first dose (Xyprexa) she knew that she had another dose she was waiting for (Seroquel), and then asked about getting a cookie which the tech had promised if she moved herself up in bed (she is capable, but didn't). She seems to be completely aware of what is taking place around her without any confusion demonstrated at present.
--- NOTE | 2021-05-09 18:21 | NUR ---
Pt tried to get up and walk towards the nurses station. I stopped her and helped her back to bed. I explained the need for her to ask for assistance and not start walking due to her fall history. Pt verbalized understanding.
--- NOTE | 2021-05-09 18:32 | NUR ---
ASSUMED CARE OF PT. PT SLEEPING ON HER RIGHT SIDE. EQUAL RISE AND FALL OF CHEST.
[2021-05-09] MEDS: risperiDONE 0.5mg tablet PO SCH (19:57)
[2021-05-09] MEDS: OLANZapine 2.5MG tablet PO SCH (19:58)
[2021-05-09] MEDS: levoFLOXACIN 500mg tablet PO SCH (19:58)
[2021-05-09] MEDS: sertraline 25mg tablet PO SCH (19:59)
--- NOTE | 2021-05-09 20:18 | NUR ---
Pt sleeping at start of shift. Woke up restless. Pt speech repetitive confused. "I don't know what happened to me, I hope I don't have Polio" Was able to remember names after introductions. Assisted to BSC large soft formed BM. Pt took HS medications with yogurt. Ate 75% of Dinner tray. Reassured, assisted back to bed, sleeping at this time.
--- NOTE | 2021-05-09 22:49 | NUR ---
Pt restless repositioned to left side drsing to left hip CD+I
--- NOTE | 2021-05-10 01:00 | NUR ---
Pt repositions self. Up to BSC per pt request. equires Voided 500 cc clr yellow urine. Depends Dry.
--- NOTE | 2021-05-10 06:00 | NUR ---
CARE ASSUMED FROM OFF GOING NURSE DENNY RN. PT. LYING IN BED RESTING QUIETLY WITH EYES CLOSED NO DISTRESS NOTED. PER OPERATIONS PROGRAM MANAGER PT. SLEPT THROUGH OUT THE SHIFT WITHOUT ANY ISSUES NOTED. STAFF WILL CONTINUE TO MONITOR FOR SAFETY.
[2021-05-10] MEDS: famotidine 20mg tablet PO SCH (09:18)
[2021-05-10] MEDS: apixaban 2.5mg tablet PO SCH ×2 (09:19→20:15)
--- NOTE | 2021-05-10 09:27 | NUR ---
PT. VISIBLE SITTING ON THE EDGE OF BED EATING BREAKFAST. PT. FEEDING HERSELF WITHOUT ANY DIFFICULTY NOTED. PT. COMPLIANT WITH MORNING MEDICATION . DENIES ANY CURRENT SI/HI OR A/V HALLUCINATIONS. STAFF ASSISTED TO BSC. CALM/COOPERATIVE WITH MORNING ASSESSMENT. PT. HAS FOAM DRSG. TO RT. HIP OLD WOUND THAT HAS SCAB REMOVED. LEFT UPPER FOREARM BRUISE THAT IS INTACT GREENISH/PURPLE IN APPEARANCE. STAFF WILL CONTINUE TO MONITOR FOR SAFETY.
--- NOTE | 2021-05-10 12:16 | NUR ---
PT. REMAINS VISIBLE ON THE UNIT IN BED #23 IN LINE OF SIGHT OF THE NURSES STATION. PT. RESTING QUIETLY WITH EYES CLOSED. NO DISTRESS NOTED. BED IN LOWEST POSITION WITH SIDERAILS X 3 FOR SAFETY.
--- NOTE | 2021-05-10 16:37 | NUR ---
PT. ASSISTED TO BSC BY STAFF.
[2021-05-10] MEDS: LORazepam 0.5 MG tablet PO PRN (18:38)
[2021-05-10] MEDS: risperiDONE 0.5mg tablet PO SCH (20:15)
[2021-05-10] MEDS: OLANZapine 2.5MG tablet PO SCH (20:15)
[2021-05-10] MEDS: levoFLOXACIN 500mg tablet PO SCH (20:15)
[2021-05-10] MEDS: sertraline 25mg tablet PO SCH (20:15)
--- NOTE | 2021-05-11 05:54 | NUR ---
PATIENT HYGIENIC NEEDS MET. PATIENT RESTING IN BED IN NO OBVIOUS DISTRESS
--- NOTE | 2021-05-11 06:00 | NUR ---
PT. CARE ASSUMED FROM OFF GOING NURSE WILLIE DIAZ. PT. VISIBLE ON THE LYING IN BED AWAKE WITHOUT ANY SIGNS OF DISTRESS NOTED. PT. CALM AND COOPERATIVE WITH MORNING ASSESSMENT. LOS IN FRONT OF NURSES STATION WITH BED IN LOWEST POSITION AND SIDERAILS UP X3 FOR SAFETY. STAFF WILL CONTINUE TO MONITOR FOR SAFETY.
--- NOTE | 2021-05-11 08:08 | NUR ---
BREAKFAST TRAY AT BEDSIDE. PT. CONTINUES TO SLEEP AT THIS TIME. STAFF WILL ASSIST WITH MEAL WHEN PATIENT AWAKENS.
[2021-05-11] MEDS: meclizine 12.5mg tablet PO PRN (08:42)
[2021-05-11] MEDS: famotidine 20mg tablet PO SCH (08:42)
[2021-05-11] MEDS: apixaban 2.5mg tablet PO SCH ×2 (08:42→20:31)
--- NOTE | 2021-05-11 08:46 | NUR ---
PT. CALM AND COOPERATIVE WITH MORNING ASSESSMENT. PT. PLACED ON BSC X2 ASSIST. ADL'S PERFORMED BY STAFF. PT. MEDICATION COMPLIANT WITH PRN OF ANTIVERT 25 MG PO FOR C/O DIZZINESS. PT. NOW VISIBLE SITTING ON THE EDGE OF BED EATING BREAKFAST. STAFF WILL CONTINUE TO MONITOR FOR SAFETY.
--- NOTE | 2021-05-11 11:07 | NUR ---
PT. REMAINS VISIBLE ON THE UNIT RESTING QUIETLY WITH EYES CLOSED. EVEN RISE AND FALL OF CHEST WITHOUT ANY DISTRESS NOTED. FALL/SAFETY PRECAUTIONS IN PLACE. WILL CONTINUE TO MONITOR.
[2021-05-11] MEDS: LORazepam 0.5 MG tablet PO PRN ×2 (11:55→19:14)
--- NOTE | 2021-05-11 12:29 | NUR ---
PT. PRESENTS WITH INCREASED AGITATION. PT. CALLING OUT FOR EX- KORINA AND TRYING TO CLIMB OUT OF BED. STAFF HAS TRIED SEVERAL TIMES CALLING EX- WITH NO ANSWER. PT. UNABLE TO BE REDIRECT AND CONTINUES TO TRY CRAWL OUT OF BED OR PLACING HER LEGS OVER THE SIDERAILS. PT. MEDICATED WITH ATIVAN 0.5 MG ORALLY FO RBEHAVIOR. REMAINS LOS IN FRONT OF NURSES STATION WITH SAFETY/FALL PRECAUTIONS IN PLACE. WILL CONTINUE TO MONITO FOR SAFETY.
--- NOTE | 2021-05-11 14:26 | NUR ---
PT. UP TO BSC X 2 ASSIST FROM STAFF.
--- NOTE | 2021-05-11 15:08 | NUR ---
PT REQUESTING PAIN MEDICATION AND UNABLE TO STAND UP FROM BED TO GO TO BATHROOM. ORDER FOR TYLENOL PREVIOUSLY PLACED. NO NEW ORDERS AT THIS TIME
--- NOTE | 2021-05-11 17:01 | NUR ---
PT. RESTING QUIETLY WITH EYES CLOSED.
--- NOTE | 2021-05-11 17:30 | NUR ---
EX- AT BEDSIDE .
--- NOTE | 2021-05-11 20:17 | NUR ---
PATIENT RECEIVED ON THE UNIT IN NO OBVIOUS DISTRESS. NO PHYSICAL COMPLAINT MADE. PATIENT IS BREATHING SPONTANOUSLY ON ROOM AIR. PATIENT IS SCREAMING AND TRYING TO GET OUT OF BED. PATIENT IS VERY AGITATED AND ANXIOUS.
[2021-05-11] MEDS: risperiDONE 0.5mg tablet PO SCH (20:30)
[2021-05-11] MEDS: sertraline 25mg tablet PO SCH (20:31)
[2021-05-11] MEDS: levoFLOXACIN 500mg tablet PO SCH (20:31)
[2021-05-11] MEDS: OLANZapine 2.5MG tablet PO SCH (20:31)
--- NOTE | 2021-05-12 04:13 | NUR ---
PATIENT AWAKE, TRYING TO GET OUT OF BED. PATIENT IS AGITATED AND ANXIOUS AT THIS TIME.
--- NOTE | 2021-05-12 05:56 | NUR ---
PATIENT HYGIENIC NEEDS MET. NO OBVIOUS DISTRESS NOTED.
--- NOTE | 2021-05-12 06:30 | NUR ---
PT. CARE ASSUMED FROM OFF GOING NURSE WILLIE DIAZ. PT. VISISBLE ON THE UNIT RESTING QUIETLY WITH EYES CLOSED. NOTED EVEN RISE AND FALL OF CHEST WITHOUT ANY DISTRESS NOTED. FALL/SAFETY PRECAUTIONS IN PLACE. WILL CONTINUE TO MONITOR FOR SAFETY.
[2021-05-12] MEDS: famotidine 20mg tablet PO SCH (08:00)
[2021-05-12] MEDS: apixaban 2.5mg tablet PO SCH ×2 (08:00→20:31)
--- NOTE | 2021-05-12 11:59 | NUR ---
PT. RESTING QUIETLY ON RIGHT WITH EYES CLOSED NO DISTRESS NOTED. EVEN RISE AND FALL OF CHEST NOTED. FALL/SAFETY PRECAUTIONS IN PLACE. WILL CONTINUE TO MONITOR FOR SAFETY.
--- NOTE | 2021-05-12 13:10 | NUR ---
PT SLEEING IN HER RGT LATERAL POSITION ,RR WNL ,WILL CONT TO MONITOR.
--- NOTE | 2021-05-12 16:55 | NUR ---
PT. VISIBLE IN BED HAS SHIFTED HERSELF AROUND IN BED . PT. RESTING WITH EYES CLOSED NO DISTRESS NOTED.
--- NOTE | 2021-05-12 17:30 | NUR ---
EX AT BEDSIDE.
--- NOTE | 2021-05-12 18:28 | NUR ---
PATIENT RECEIVED ON THE UNIT SITTING BED, HAVING DINNER. NO OBVIOUS DISTRESS NOTED. EX- IS STILL AT BEDSIDE. PATIENT IS CALM AND COOPERATIVE AT THIS TIME.
[2021-05-12] MEDS: levoFLOXACIN 500mg tablet PO SCH (20:31)
[2021-05-12] MEDS: risperiDONE 0.5mg tablet PO SCH (20:31)
[2021-05-12] MEDS: sertraline 25mg tablet PO SCH (20:31)
[2021-05-12] MEDS: OLANZapine 2.5MG tablet PO SCH (20:31)
[2021-05-12] MEDS: LORazepam 0.5 MG tablet PO PRN (20:47)
--- NOTE | 2021-05-12 21:17 | NUR ---
PATIENT BECAME VERY ANXIOUS AND NON REDIRECTABLE. ATIVAN 0.5 MG PO GIVEN
--- NOTE | 2021-05-13 03:45 | NUR ---
PATIENT ASLEEP IN NO OBVIOUSN DISTRESS.
--- NOTE | 2021-05-13 06:30 | NUR ---
CARE ASSUMED FROM OFF GOING NURSE WILLIE RN. PT. VISIBLE ON THE UNIT RESTING WITH EYES CLOSED NO DISTRESS NOTED. NOTED RISE AND FALL OF CHEST . FALL/SAFETY PRECAUTIONS IN PLACE. WILL CONTINUE TO MONITOR.
--- NOTE | 2021-05-13 08:00 | NUR ---
LAB AT BEDSIDE TO OBTAIN ORDERED SPECIMENS.
[2021-05-13 08:29] LABS: BASOPHILS # (AUTO) 0.1 X10'3 (0-0.2); BASOPHILS % (AUTO) 1.3 % (0-1); EOSINOPHILS # (AUTO) 0.3 X10'3 (0-0.9); EOSINOPHILS % (AUTO) 5.2 % (0-6); HEMATOCRIT 31.1 % (35.0-45.0); HEMOGLOBIN 10.4 g/dl (12.0-16.0); LYMPHOCYTES # (AUTO) 1.8 X10'3 (1.1-4.8); LYMPHOCYTES % (AUTO) 27.1 % (21-51); MEAN CORPUSCULAR HEMOGLOBIN 29.4 PG (27.0-31.0); MEAN CORPUSCULAR HGB CONC 33.4 g/dL (33.0-36.5); MEAN PLATELET VOLUME 8.1 FL (7.4-10.4); MONOCYTES # (AUTO) 0.5 X10'3 (0-0.9); MONOCYTES % (AUTO) 8.2 % (2-12); NEUTROPHILS # (AUTO) 3.8 X10'3 (1.8-7.7); NEUTROPHILS % (AUTO) 58.2 % (42-75); PLATELET COUNT 361 X10'3 (140-440); RED BLOOD COUNT 3.54 X10'6 (4.20-5.60); RED CELL DISTRIBUTION WIDTH 15.7 % (11.5-14.5); WHITE BLOOD COUNT 6.5 X10'3 (4.5-11.0)
[2021-05-13 09:03] LABS: ALANINE AMINOTRANSFERASE 7 U/L (12-78); ALBUMIN 2.3 G/DL (3.4-5.0); ALBUMIN/GLOBULIN RATIO 0.6 (1.1-1.5); ALKALINE PHOSPHATASE 98 IU/L (46-116); ANION GAP 8 (8-16); ASPARTATE AMINO TRANSFERASE 12 U/L (10-37); BILIRUBIN,TOTAL 0.3 MG/DL (0.1-1.0); BLOOD UREA NITROGEN 29 MG/DL (7-18); BUN/CREATININE RATIO 32.2 (6.6-38.0); CALCIUM 8.5 MG/DL (8.5-10.1); CHLORIDE 109 MMOL/L (99-107); GLUCOSE 88 MG/DL (70-104); POTASSIUM 4.5 MMOL/L (3.5-5.1); SODIUM 144 MMOL/L (135-145); TOTAL CARBON DIOXIDE 27.3 MMOL/L (24-32); TOTAL PROTEIN 6.1 G/DL (6.4-8.2); eGFR 60 ML/MIN
[2021-05-13] MEDS: LORazepam 0.5 MG tablet PO PRN ×2 (09:25→20:55)
[2021-05-13] MEDS: apixaban 2.5mg tablet PO SCH ×2 (09:25→20:56)
[2021-05-13] MEDS: famotidine 20mg tablet PO SCH (09:25)
--- NOTE | 2021-05-13 10:03 | NUR ---
CLEAN CATCH URINE SPECIMEN OBTAINED AND TAKEN TO THE LAB.
[2021-05-13 10:11] LABS: CLARITY,URINE CLEAR (Clear); COLOR,URINE YELLOW (Yellow); GLUCOSE, URINE NEGATIVE (Neg); KETONES,URINE NEGATIVE (Neg); LEUKOCYTE ESTERASE ,URINE NEGATIVE (Neg); NITRITES, URINE NEGATIVE (Neg); OCCULT BLOOD,URINE NEGATIVE (Neg); PH,URINE 6.5 (4.8-8.0); PROTEIN,URINE NEGATIVE (Neg); UROBILINOGEN,URINE 0.2 E.U/dL (0.2-1.0)
[2021-05-13 10:13] LABS: UA COLLECTION TYPE CLN CATCH MIDSTREAM
--- NOTE | 2021-05-13 13:30 | NUR ---
PT. AWAKE REQUESTING LUNCH. LUNCH TRAY PROVIDED.
--- NOTE | 2021-05-13 16:41 | NUR ---
STAFF ASSISTX2 TO BSC.
--- NOTE | 2021-05-13 17:55 | NUR ---
PT. EX- AT BEDSIDE. DECIDED TO LEAVE AFTER PATIENT BECAME AGITATED WITH HIM.
--- NOTE | 2021-05-13 18:58 | NUR ---
PATIENT RECEIVED ON THE UNIT IN NO OBVIOUS DISTRESS. NO PHYSICAL COMPLAINT MADE. PATIENT IS BREATHING SPONTANOUSLY ON ROOM AIR. PATIENT IS RESTLESS AND APPEARS CONFUSED.
[2021-05-13] MEDS: sertraline 25mg tablet PO SCH (20:55)
[2021-05-13] MEDS: risperiDONE 0.5mg tablet PO SCH (20:55)
[2021-05-13] MEDS: levoFLOXACIN 500mg tablet PO SCH (20:55)
[2021-05-13] MEDS: OLANZapine 2.5MG tablet PO SCH (20:55)
--- NOTE | 2021-05-14 00:44 | NUR ---
Patient asleep in no obvious distress.
--- NOTE | 2021-05-14 06:30 | NUR ---
Received patient from [facility] shift and she is resting in bed. Patient stating she is hungry right now, then patient fell back to sleep.
[2021-05-14] MEDS: apixaban 2.5mg tablet PO SCH ×2 (07:28→20:53)
[2021-05-14] MEDS: LORazepam 0.5 MG tablet PO PRN ×4 (07:28→21:01)
[2021-05-14] MEDS: famotidine 20mg tablet PO SCH (07:28)
--- NOTE | 2021-05-14 07:30 | NUR ---
0730 Patient awake and yelling out names and tasks she would like completed that have already been done with her care. Patient incontinent of urine. Depends and blue pads on her bed changed. Ativan given to help her relax.
--- NOTE | 2021-05-14 09:00 | NUR ---
Spoke with charge nurse regarding discharge status, will follow up with CM and DC conservation planner on Sunday in regards to referral previously sent
--- NOTE | 2021-05-14 09:25 | NUR ---
Patient assisted to BSC with help of EMILY Goins. Patient extremely weak and not able to bear any weight at all. Patient urinated on BSC and was also incontinent of urine and a small amount of stool. Patient assisted back to bed. Reassured the patient after returning to bed. Patient requested to read her bible and her glasses. Patient resting in bed.
--- NOTE | 2021-05-14 11:10 | NUR ---
Patient requested help to go to the bathroom. Assisted patient from her bed to the BSC with assist of one person. Patient had a small BM and urinated. Patient assisted back to bed and repositioned with pillows. Will continue to monitor. Patient given her 2nd dose of Ativan at 1126.
--- NOTE | 2021-05-14 11:12 | NUR ---
Spoke with lio from social services assistant at which she states that the last note on patients case was from [facility] on 05/09/21. She will follow up with case management on sunday to find out more information on possible placement.
--- NOTE | 2021-05-14 13:00 | NUR ---
Patient eating her lunch. Remains confused and restless. Continually puts her legs over the side of her bed and attempts to stand up, despite being informed over and over to remain in her bed and we can help her transfer to the [facility]. Patient has short term & profile saw operator memory deficits, and has difficulty retaining this information. Patient can be unsafe and wreckless when attempting to quickly get oob on her own. Spoke to Katelynn, Physical Therapy, regarding patients increased weakness of her lower extremities that has gotten worse, and the patient is now unsafe to get oob without assistance, as well as she is unable to ambulate to the bathroom because she is not able follow direction to safely get to the bathroom. Patient requires an assistive device and gait training prior to her possibility of placement in a SNF when one becomes available. Russ, patient's ex , would like to be here when PT sees the patient on May 15. Note left on the front end assistant to call patient when PT is ready to see the patient per his request. Will continue to monitor patient closely.
--- NOTE | 2021-05-14 15:10 | NUR ---
Patient sleeping at this time.
--- NOTE | 2021-05-14 17:30 | NUR ---
Patient's Russ is here to visit with the patient. Russ met with patient at her bedside for approximately one hour. Will continue to monitor the patient.
[2021-05-14] MEDS: OLANZapine 2.5MG tablet PO SCH (20:54)
[2021-05-14] MEDS: sertraline 25mg tablet PO SCH (20:54)
[2021-05-14] MEDS: risperiDONE 0.5mg tablet PO SCH (20:54)
[2021-05-14] MEDS: levoFLOXACIN 500mg tablet PO SCH (20:59)
--- NOTE | 2021-05-15 01:59 | NUR ---
Pt asleep in bed at this time, zero acute distress noted.
--- NOTE | 2021-05-15 08:02 | NUR ---
pt sleeping quietly
[2021-05-15] MEDS: famotidine 20mg tablet PO SCH (09:26)
[2021-05-15] MEDS: apixaban 2.5mg tablet PO SCH ×2 (09:26→20:39)
[2021-05-15] MEDS: LORazepam 0.5 MG tablet PO PRN ×3 (11:28→19:46)
--- NOTE | 2021-05-15 11:30 | NUR ---
Pt yeeling out with eyes closed" Nurse please help me go to sleep, Please help me nurse. Pt assisted repositioned in bed and provided warm blanket for comfort. Pt thanked Nurse and closed eyes.
--- NOTE | 2021-05-15 11:31 | NUR ---
PT AGITATED AND HAVING OUTBURST. ATIVAN 0.5 1 TAB PO GIVEN.
[2021-05-15] MEDS: acetaminophen 325mg tablet PO PRN (13:09)
--- NOTE | 2021-05-15 14:53 | NUR ---
PT ASSIST OOB ONTO BSC. SKIN CLEANED. PT FRESHENED UP AND HAIR BRUSHED AND PLACED IN BRAID.
--- NOTE | 2021-05-15 16:00 | NUR ---
PT ASSITED UP TO BSC AND THEN PLACED IN CHAIR AT BEDSIDE.
--- NOTE | 2021-05-15 16:05 | NUR ---
PT GIVEN WATER
--- NOTE | 2021-05-15 16:20 | NUR ---
PT WAS REQUESTING SNACK, PT ATE YOGURT CUP
--- NOTE | 2021-05-15 16:33 | NUR ---
PT CONTINUES TO CALL OUT WITH NUMEROUS NEEDS A AND NOW NOT WANTING IN CHAIR BUT BACK IN BED. PT ASSITED BACK IN BED AND COVERED WITH WARM BLANKETS PER PT REQUEST.
--- NOTE | 2021-05-15 18:15 | NUR ---
Pt finishing up meal; with husaband at bedside.
--- NOTE | 2021-05-15 19:30 | NUR ---
Pt yelling out "help me nurse'' after requested needs have been met, Pt appears ro be anxious throwing her legs out of bed and attempting to get OOB without assidtance, pt redirected several times, pt toileted, repositoned and fluids offered. Prn Felice admin as ordered for anxiety.
[2021-05-15] MEDS: levoFLOXACIN 500mg tablet PO SCH (20:39)
[2021-05-15] MEDS: OLANZapine 2.5MG tablet PO SCH (22:13)
[2021-05-15] MEDS: sertraline 25mg tablet PO SCH (22:13)
[2021-05-15] MEDS: risperiDONE 0.5mg tablet PO SCH (22:14)
--- NOTE | 2021-05-16 00:35 | NUR ---
Pt resting quietly with eyes closed at this time.
--- NOTE | 2021-05-16 02:16 | NUR ---
Pt sleeping at this time, zero s/s distress noted.
--- NOTE | 2021-05-16 05:17 | NUR ---
Pt continuesd to sleep at this time, zero s/s ditress noted.
--- NOTE | 2021-05-16 06:40 | NUR ---
Patient sleeping on her right side. No distress observed. Continue to monitor.
--- NOTE | 2021-05-16 08:25 | NUR ---
Patient sleeping. No distress observed. Continue to monitor.
--- NOTE | 2021-05-16 09:50 | NUR ---
Patient awake. RN and Tech cleaned patient as she wet through the diaper. Patient has a few Stage I sponts on her coccyx area and patient's heels still have a stage one and are being floated with pillows. Continue to monitor.
[2021-05-16] MEDS: apixaban 2.5mg tablet PO SCH (10:00)
[2021-05-16] MEDS: famotidine 20mg tablet PO SCH (10:00)
--- NOTE | 2021-05-16 10:05 | NUR ---
Maximo Lucas is feeding patient. Patient tolerating well. Continue to monitor.
--- NOTE | 2021-05-16 10:35 | NUR ---
Patient moved onto right side with pillows supporting her back and legs. Continue to monitor.
--- NOTE | 2021-05-16 12:10 | NUR ---
WISETIVI feeding patient. Patient has a good appetite. No distress observed. Continue to monitor.
[2021-05-16] MEDS: acetaminophen 325mg tablet PO PRN (13:19)
[2021-05-16] MEDS: LORazepam 0.5 MG tablet PO PRN ×2 (13:54→21:31)
--- NOTE | 2021-05-16 14:03 | NUR ---
Patient calling for nurse often. Patient has new complaint of right foot pain. Patient has stage 1 decub to bilateral heels. Patient's right great toe joint is red and very painful to touch. RN advised Dr Levy who stated he would come look at foot. Continue to monitor.
--- NOTE | 2021-05-16 16:25 | NUR ---
Patient placed on the bedside Commode. Ex-, Russ was at bedside and stepped out when patient getting up to commode. Patient had a BM. Hard balls. Continue to monitor.
--- NOTE | 2021-05-16 18:30 | NUR ---
Pt laying in bed talking with staff asking if someone can stay with her , pt voices she doesnt want to be alone. Pt redirected and reassured that she is safe.
--- NOTE | 2021-05-16 19:34 | NUR ---
Pt voided and changed by staff, pt repositioned in bed.
--- NOTE | 2021-05-16 21:15 | NUR ---
Pt in bed yelling for staff to come take her son Malachi to the bathrrom, and asking if staff could lay her down for sleep, pt redirected and reminded that she is in the bed and her son Malachi is not here, Pt continue to yell and disturb others, Pt attempting to get OOB without assistance, pt redirected. Prn Ativan admin as ordered.
[2021-05-16] MEDS: sertraline 25mg tablet PO SCH (21:20)
[2021-05-16] MEDS: risperiDONE 0.5mg tablet PO SCH (21:20)
[2021-05-16] MEDS: OLANZapine 2.5MG tablet PO SCH (21:20)
[2021-05-17] MEDS: acetaminophen 325mg tablet PO PRN ×2 (01:00→20:58)
--- NOTE | 2021-05-17 06:34 | NUR ---
pt sleeping soundly, zero distress noted.
[2021-05-17] MEDS: apixaban 2.5mg tablet PO SCH ×3 (06:53→20:18)
--- NOTE | 2021-05-17 07:09 | NUR ---
pt appears to be sleeping. no s/s respiratory distress-equal and unlabored respirations.
--- NOTE | 2021-05-17 10:15 | NUR ---
pt awake to taking morning medications. pt observed to have had bm and incontinent while sleeping. pt assisted up to bedside commode with 2 person assist where pt voided while complete bed change was done. provided cheryl care and changed pt into clean scrubs and brief and assited back into bed. pt then ate breakfast and is planning to go back to sleep. pt continues to be confused and oriented only to person. pt took medications without issue. arturo, director of social work, came down and states she is still working on pt placement into a intermediate designer care which has been difficult.
--- NOTE | 2021-05-17 10:30 | NUR ---
sleeping on right side, equal and non-labored respirations.
[2021-05-17] MEDS: famotidine 20mg tablet PO SCH (11:32)
--- NOTE | 2021-05-17 13:12 | NUR ---
please call when discharged or transferred and he can bring wallet with ID's.
--- NOTE | 2021-05-17 13:18 | NUR ---
assist pt to commode
--- NOTE | 2021-05-17 17:16 | NUR ---
pt has been very alert and oriented today. She is answering my questions, she knows her age and her past medical hx. She wants to walk around and get better "so she can show the dr. she is all better" she is very understanding of her surroundings. Although she acts confused at times when you show her why it doesn't make sense she will retract her statement.
--- NOTE | 2021-05-17 17:18 | NUR ---
Called Case Management and they weren't NOT very aware of pts case. Packets were sent on 05/05 with little to no follow up. Harper said she would reach out to Dr. Thomas and see if he will evaluate pts diagnosis. Dementia is primary diagnosis but we can not find record from her PCP of where this came from. On Discharge summary from Dr. Galeano he states "Likely dementia" but no tele neuro had been done.
--- NOTE | 2021-05-17 17:18 | NUR ---
pt ex mariana at bedside
--- NOTE | 2021-05-17 18:44 | NUR ---
RECIEVED PATIENT ON THE UNIT LYING IN BED. NO OBVIOUS DISTRESS NOTED. PATIENT IS BREATHING SPONTANOUSLY ON ROOM AIR. PATIENT HAD DINNER. SHE REMAIN CALM AND COOPERATIVE AT THIS TIME.
[2021-05-17] MEDS: LORazepam 0.5 MG tablet PO PRN (19:33)
--- NOTE | 2021-05-17 19:52 | NUR ---
PATIENT BECAME VERY ANXIOUS AND AGIATED. PATIENT WAS GIVEN ATIVAN 0.5 MG PO
--- NOTE | 2021-05-17 19:53 | NUR ---
PATIENT WAS SEEN BY NEUROLOGIST VIRUALLY. NEUROLOGIST STATE THAT SHE WILL EVALUATE PATIENT MEDICATION.
[2021-05-17] MEDS: risperiDONE 0.5mg tablet PO SCH (20:18)
[2021-05-17] MEDS: sertraline 25mg tablet PO SCH (20:18)
[2021-05-17] MEDS: OLANZapine 2.5MG tablet PO SCH (20:18)
--- NOTE | 2021-05-18 04:28 | NUR ---
Patient asleep but easily arouse. No obvious distress noted. Observation ongoing
--- NOTE | 2021-05-18 05:39 | NUR ---
Patient asleep in no obvious distress. Observation ongoing
--- NOTE | 2021-05-18 05:41 | NUR ---
Patient asleep but easily arouse. No obvious distress noted. Observation ongoing
--- NOTE | 2021-05-18 06:00 | NUR ---
PATIENT RECEIVED RESTING IN BED. RESP. EVEN AND NON LABORED. NO S/S OF DISCOMFORT. WILL CONTINUE TO ASSIST AND MONITOR.
--- NOTE | 2021-05-18 08:00 | NUR ---
RESTING IN BED QUIETLY. NO ACUTE DISTRESS.
[2021-05-18] MEDS: famotidine 20mg tablet PO SCH (11:46)
[2021-05-18] MEDS: apixaban 2.5mg tablet PO SCH ×2 (11:46→20:18)
--- NOTE | 2021-05-18 12:00 | NUR ---
PATIENT IS EATING LUNCH INDEPENDENTLY.
--- NOTE | 2021-05-18 14:00 | NUR ---
PATIENT WAS ASSISTED TO BEDSIDE COMMODE. PATIENT HAD A BM.
[2021-05-18] MEDS: acetaminophen 325mg tablet PO PRN ×2 (14:46→20:18)
--- NOTE | 2021-05-18 15:16 | NUR ---
PATIENT IS AWAKE AND REQUESTING FOOD. SNACKS GIVEN UNTIL LUCH ARRIVES.
--- NOTE | 2021-05-18 16:39 | NUR ---
PATIENT TRYING TO GET OUT OB BED ALONE. PATIENT WAS REDIRECTED TO BED. BED ALARM ON.
--- NOTE | 2021-05-18 19:53 | NUR ---
RECEIVED ON THE UNIT LYING IN BED. NO PHYSICAL COMPLAINT MADE. PATIENT BREATHING SPONTANOUSLY ON ROOM AIR. PATIENT IS AGITATED AND ANXIOUS AND TRYING TO GET OUT BED.
[2021-05-18] MEDS: OLANZapine 2.5MG tablet PO SCH (20:18)
[2021-05-18] MEDS: risperiDONE 0.5mg tablet PO SCH (20:18)
[2021-05-18] MEDS: sertraline 25mg tablet PO SCH (20:18)
[2021-05-18] MEDS: LORazepam 0.5 MG tablet PO PRN (20:18)
--- NOTE | 2021-05-19 01:43 | NUR ---
Patient asleep in no obvious distress. observation ongoing
--- NOTE | 2021-05-19 05:05 | NUR ---
Patient asleep in no obvious distress. Observation ongoing
--- NOTE | 2021-05-19 06:00 | NUR ---
PT. CARE ASSUMED FROM OFF GOING NURSE WILLIE DIAZ. PT. VISIBLE ON THE UNIT RESTING QUIETLY WITH EYES CLOSED. FALL/SAFETY PRECAUTIONS IN PLACE. STAFF WILL CONTINUE TO MONITOR .
[2021-05-19] MEDS: famotidine 20mg tablet PO SCH (09:52)
[2021-05-19] MEDS: apixaban 2.5mg tablet PO SCH ×2 (09:52→20:15)
--- NOTE | 2021-05-19 13:22 | NUR ---
PT. UP AMBULATING WITH PHYSICAL THERAPY.
--- NOTE | 2021-05-19 16:50 | NUR ---
PT. AMBULATED ON THE UNIT X2 ASSIST.
--- NOTE | 2021-05-19 19:12 | NUR ---
PATIENT RECEIVED ON THE LYING IN BED IN NO OBVIOUS DISTRESS. NO PHYSICAL COMPLAINT MADE.PATIENT EX IS SITTING AT BEDSIDE. PATIENT HAD DINNER. PATIENT HAVING CONSERVATION WITH EX . OBSERVATION ONGOING
[2021-05-19] MEDS: acetaminophen 325mg tablet PO PRN (20:15)
[2021-05-19] MEDS: QUEtiapine 25mg tablet PO SCH (20:15)
[2021-05-19] MEDS: sertraline 25mg tablet PO SCH (20:15)
[2021-05-19] MEDS: risperiDONE 0.5mg tablet PO SCH (20:15)
--- NOTE | 2021-05-20 06:00 | NUR ---
PT. CARE ASSUMED FROM OFF GOING NURSE WILLIE DIAZ. PT. RESTING QUIETLY WITH EYES CLOSED. EVEN RISE AND RISE AND FALL OF CHEST NOTED.
--- NOTE | 2021-05-20 07:30 | NUR ---
PT. ASSISTED TO BSC X2 STAFF. PT. ADL'S AND BED LINENS CHANGED AT THIS TIME. PT. BACK IN BED RESTING QUIETLY. BED IN LOWEST POSITION IN FRONT OF NURSES STATION AND SIDERAILS UP X3 FOR SAFETY.
--- NOTE | 2021-05-20 10:30 | NUR ---
PT. AAOX1 THIS SHIFT DENIES ANY CURRENT SI/HI OR A/V HALLUCINATIONS. PT. COOPERATIVE WITH MORNING ASSESSMENT AND MEDICATIONS. SAFETY AND FALL PRECAUTIONS IN PLACE. STAFF WILL CONTINUE TO MONITOR FOR SAFETY.
[2021-05-20] MEDS: apixaban 2.5mg tablet PO SCH ×2 (10:49→20:18)
[2021-05-20] MEDS: famotidine 20mg tablet PO SCH (10:49)
--- NOTE | 2021-05-20 12:30 | NUR ---
PT. ASSISTED WITH LUNCH TRAY SET UP.
--- NOTE | 2021-05-20 15:54 | NUR ---
PT. ASSISTED TO THE BSC X1 STAFF. PT. REQUIRES REDIRECTING FROM STAFF.
--- NOTE | 2021-05-20 16:54 | NUR ---
VISIBLE ONTHE UNIT SITTING IN BED AWAKE. REQUIRE REMINDING TO NOT GET OOB WITHOUT STAFF.
--- NOTE | 2021-05-20 17:02 | NUR ---
EX- AT BEDSIDE VISITING.
--- NOTE | 2021-05-20 18:30 | NUR ---
Pt sitting at bedside eating dinner at this time, no distress noted.
[2021-05-20] MEDS: risperiDONE 0.5mg tablet PO SCH (20:18)
[2021-05-20] MEDS: QUEtiapine 25mg tablet PO SCH (20:18)
[2021-05-20] MEDS: sertraline 25mg tablet PO SCH (20:18)
--- NOTE | 2021-05-20 20:30 | NUR ---
Pt meds were administred as ordered with lots of redirection and encouragement.
--- NOTE | 2021-05-20 20:40 | NUR ---
Pt ambulated to bedside commode with assist x 1, pt voided clear yellow urine, no distress noted.
--- NOTE | 2021-05-20 22:35 | NUR ---
Pt appears to be asleep in bed at this time, no acute distress noted.
--- NOTE | 2021-05-20 22:50 | NUR ---
Pt observed getting oob without assitance yelling loudly "cut the light on in the Living room so noone breaks in with guns, they will think no ones home", pt redirected and continues to yell " you dont want to get shot do you". Pt cont to need frequent redirection.
--- NOTE | 2021-05-21 00:50 | NUR ---
Pt appears to be sleeping, no distress noted.
--- NOTE | 2021-05-21 03:00 | NUR ---
Pt asleep , no distress noted.
--- NOTE | 2021-05-21 05:23 | NUR ---
pt sleeping quietly at thi time, no distress noted.
--- NOTE | 2021-05-21 06:00 | NUR ---
Received patient from EMILY Carbone. Resting in bed . Resp. even and non labored. Easy to rouse. No s/s of discomfort. Will continue to monitor and assist as needed.
--- NOTE | 2021-05-21 08:00 | NUR ---
Sleeping in bed on right side. Resp. even and non-labored. No s/s of discomfort. Will continue to monitor.
[2021-05-21] MEDS: famotidine 20mg tablet PO SCH (10:33)
[2021-05-21] MEDS: apixaban 2.5mg tablet PO SCH ×2 (10:33→20:18)
--- NOTE | 2021-05-21 10:39 | NUR ---
Sitting up in bed eating breakfast. Compliant with medications. Assisted with ADLs.
--- NOTE | 2021-05-21 12:00 | NUR ---
Eating lunch in bed. Resp even and non -labored. Observation ongoing.
--- NOTE | 2021-05-21 14:42 | NUR ---
Resting in bed on right side. No s/s of discomfort at this time. Will continue to monitor.
--- NOTE | 2021-05-21 16:15 | NUR ---
Resting in bed quietly. No s/s of discomfort. Will continue to monitor and assist as needed.
--- NOTE | 2021-05-21 18:17 | NUR ---
ANXIOUS. HAS TO BE REDIRECTED TO BED CONTINUOUSLY.
--- NOTE | 2021-05-21 19:05 | NUR ---
PATIENT RECEIVED LYING IN BED. NO OBVIOUS DISTRESS NOTED. PATIENT IS BREATHING SPONTANOUSLY ON ROOM AIR.PATIENT APPEARS TO BE CONFUSED. SHE IS NONREDIRICTABLE AT THIS TIME.
[2021-05-21] MEDS: sertraline 25mg tablet PO SCH (20:17)
[2021-05-21] MEDS: QUEtiapine 25mg tablet PO SCH (20:18)
[2021-05-21] MEDS: risperiDONE 0.5mg tablet PO SCH (20:18)
--- NOTE | 2021-05-22 00:01 | NUR ---
Pt sleeping at this time, no distress noted.
--- NOTE | 2021-05-22 05:21 | NUR ---
PATIENT ASLEEP IN NO OBVIOUS DISTRESS. OBSERVATION ONGOING.
[2021-05-22] MEDS: apixaban 2.5mg tablet PO SCH ×2 (10:00→20:00)
[2021-05-22] MEDS: famotidine 20mg tablet PO SCH (10:00)
--- NOTE | 2021-05-22 11:52 | NUR ---
Patient is awake and alert, confused at times. No acute signs of distress noted, no behavioral issues noted. No complaints of pain. Patient denies any auditory hallucination and denies depression at this time. Patient is drowsy but easily arousable. Current vitals are wnl.
[2021-05-22] MEDS: sertraline 25mg tablet PO SCH (20:00)
[2021-05-22] MEDS: risperiDONE 0.5mg tablet PO SCH (20:00)
[2021-05-22] MEDS: meclizine 12.5mg tablet PO PRN (20:01)
--- NOTE | 2021-05-22 20:30 | NUR ---
Pt laying in bed on left side at this time. No distress noted.
--- NOTE | 2021-05-22 21:00 | NUR ---
Pt constantly uo and down oob without assistance, frequent redirecting needed.
--- NOTE | 2021-05-23 02:30 | NUR ---
Pt sleeping quietly at this time.
--- NOTE | 2021-05-23 06:01 | NUR ---
Pt sleeping at this time, no distress noted.
--- NOTE | 2021-05-23 07:00 | NUR ---
Pt resting comfortably in low fowlers position. Respirtions even and unlabored.
--- NOTE | 2021-05-23 09:00 | NUR ---
Pt woke on her own to eat breakfast. Pt had an incontinent episode, clothes and bed linens were changed. Pt sat on bedside and ate her breakfast. Pt was pleasant, cooperative with care and medication.
[2021-05-23] MEDS: famotidine 20mg tablet PO SCH (09:16)
[2021-05-23] MEDS: apixaban 2.5mg tablet PO SCH ×2 (09:16→20:30)
--- NOTE | 2021-05-23 11:12 | NUR ---
Pt resting comfortably on left side, respirations even and unlabored.
--- NOTE | 2021-05-23 11:34 | NUR ---
Pt independently up to bedside commode.
--- NOTE | 2021-05-23 12:20 | NUR ---
Russ ex- at bedside.
--- NOTE | 2021-05-23 14:30 | NUR ---
Pt resting comfortably, respirations even and unlabored.
--- NOTE | 2021-05-23 15:23 | NUR ---
Referral packet sent to Nisha at [facility]. Fax#[phone].
--- NOTE | 2021-05-23 16:30 | NUR ---
Pt resting comfortably on left side. No respirations even and unlabored.
--- NOTE | 2021-05-23 17:30 | NUR ---
Pt on the phone with ex , Russ.
--- NOTE | 2021-05-23 18:30 | NUR ---
Pt sitting up on the side of bed eating dinner, no distress noted.
[2021-05-23] MEDS ORDERED: docusate sod 100mg capsule PO ONE (20:00)
[2021-05-23] MEDS: meclizine 12.5mg tablet PO PRN (20:29)
[2021-05-23] MEDS: sertraline 25mg tablet PO SCH (20:30)
[2021-05-23] MEDS: QUEtiapine 25mg tablet PO SCH (20:30)
[2021-05-23] MEDS: risperiDONE 0.5mg tablet PO SCH (20:30)
--- NOTE | 2021-05-23 21:05 | NUR ---
Note undone in [facility] - 05/23/21 at 2106 by ROMAN Patient restless, getting out of the bed. Easily red Addendum: 05/23/21 at 6 by ROMAN Amendment undone in [facility] - 05/23/21 at 7 by ROMAN Patient restless, walking around the unit and getting out of the bed, patient easily redirected
--- NOTE | 2021-05-23 21:08 | NUR ---
Patient restless, getting out of the bed, easily redirected by staff. will continue to monitor
--- NOTE | 2021-05-23 22:30 | NUR ---
Pt up calling" Honey bring me a light bulb for the kitchen", pt ambulating without assistance in search of the kitchen , pt redirected several times, no distress noted.
--- NOTE | 2021-05-23 23:00 | NUR ---
pt sitting up on the side of the bed eating snacks, no ditress noted.
--- NOTE | 2021-05-24 00:04 | NUR ---
Pt up ambulating unassisted attempting to get into bed with other patients, pt redirected frequently.
--- NOTE | 2021-05-24 01:00 | NUR ---
Pt appears to be sleeping , no acute distress noted.
--- NOTE | 2021-05-24 05:30 | NUR ---
Pt laying in bed with eyes closed, no acute distress noted.
--- NOTE | 2021-05-24 06:10 | NUR ---
PATIENT IS UP OUT OF BED. STATED THAT SHE IS LOOKING FOR SOMETHING TO EAT. PATIENT REDIRECTED TO BED FOR SAFETY AND BED ALARM IN USE. WILL CONTINUE TO MONITOR AND REDIRECT NEEDED.
--- NOTE | 2021-05-24 08:00 | NUR ---
RESTING IN BED. NO S/S OF DISCOMFORT. WILL CONTINUE TO MONITOR AND ASSIST NEEDED.
--- NOTE | 2021-05-24 10:00 | NUR ---
SLEEPING IN BED. NO S/S OF DISCOMFORT AT THIS TIME.
--- NOTE | 2021-05-24 12:26 | NUR ---
SLEEPING ON BACK IN BED. WILL CONTINUE TO MONITOR AND ASSIST.
[2021-05-24] MEDS: famotidine 20mg tablet PO SCH (13:18)
[2021-05-24] MEDS: apixaban 2.5mg tablet PO SCH ×2 (13:18→20:15)
--- NOTE | 2021-05-24 14:30 | NUR ---
SITTING IN BED EATING SNACKS. WILL CONTINUE TO MONITOR.
--- NOTE | 2021-05-24 16:30 | NUR ---
SLEEPING IN BED ON RIGHT SIDE. nO ACUTE DISTRESS NOTED. WILL CONTINUE TO MONITOR.
--- NOTE | 2021-05-24 19:20 | NUR ---
PATIENT RECEIVED ON THE UNIT IN NO OBVIOUS DISTRESS. NO PHYSICAL COMPLAINT MADE. PATIENT IS BREATHING SPONTANOUSLY ON ROOM AIR. PATIENT IS CALM AND COOPERATIVE AT THIS TIME. STILL APPEARS CONFUSED AT TIME.
[2021-05-24] MEDS: risperiDONE 0.5mg tablet PO SCH (20:13)
[2021-05-24] MEDS: QUEtiapine 25mg tablet PO SCH ×2 (20:14→21:00)
[2021-05-24] MEDS: sertraline 25mg tablet PO SCH (20:15)
--- NOTE | 2021-05-25 01:04 | NUR ---
PATIENT REMAIN AWAKE GOING IN AND OUT OF BEDS.
[2021-05-25] MEDS: acetaminophen 325mg tablet PO PRN (02:58)
--- NOTE | 2021-05-25 05:42 | NUR ---
PATIENT ASLEEP BUT EASILY AROUSE. NO OBVIOUS DISTRESS NOTED
--- NOTE | 2021-05-25 06:00 | NUR ---
RECEIVED PATIENT SLEEPING IN BED. NO S/S DISCOMFORT. WILL CONTINUE TO MONITOR AND ASSIST NEEDED.
--- NOTE | 2021-05-25 08:00 | NUR ---
SLEEPING IN BED ON RIGHT SIDE. WILL CONTINUE TO MONITOR AND ASSIST NEEDED.
--- NOTE | 2021-05-25 10:00 | NUR ---
RESTING IN BED QUIETLY. NO ACUTE DISTRESS NOTED. WILL CONTINUE TO MONITOR AND ASSIST NEEDED.
--- NOTE | 2021-05-25 10:00 | NUR ---
SLEEPING IN BED ON RIGHT SIDE. NO ACUTE DISTRESS NOTED. WILL CONTINUE TO MONITOR AND ASSIST.
[2021-05-25] MEDS: famotidine 20mg tablet PO SCH (10:02)
[2021-05-25] MEDS: apixaban 2.5mg tablet PO SCH ×2 (10:03→20:49)
--- NOTE | 2021-05-25 14:00 | NUR ---
RESTING IN BED. NO S/S DISCOMFORT. WILL CONTINUE TO MONIOR.
--- NOTE | 2021-05-25 14:14 | NUR ---
Pt's dentures rec'd from Danielle at [facility] where pt was sent from. Took dentures to ER overflow where pt currently is and handed them to staff (Lula RN, Vaughn EMT). They will give them to the patient. Continue to monitor.
--- NOTE | 2021-05-25 16:44 | NUR ---
ASSISTED TO BSC. TOLERATED WELL. WILL CONTINUE TO OBSERVE AND REDIRECT NEEDED.
--- NOTE | 2021-05-25 19:00 | NUR ---
Pt sitting on side of bed eating peanut butter and crackers.
[2021-05-25] MEDS: QUEtiapine 25mg tablet PO SCH (20:49)
[2021-05-25] MEDS: risperiDONE 0.5mg tablet PO SCH (20:49)
[2021-05-25] MEDS: sertraline 25mg tablet PO SCH (20:50)
--- NOTE | 2021-05-25 21:00 | NUR ---
Pt up ambulating in room, pt assisted, no distress noted.
--- NOTE | 2021-05-26 | NUR ---
Pt up using the bedside commode, no distress noted.
--- NOTE | 2021-05-26 02:30 | NUR ---
Pt up eating peanut butter, pt used the bedside commode, no distress noted.
--- NOTE | 2021-05-26 05:30 | NUR ---
Pt awake in room, no distress noted.
--- NOTE | 2021-05-26 06:00 | NUR ---
PT. CARE ASSUMED FROM OFF GOING NURSE ADAM RN. PT. VISIBLE SITTING ON THE EDGE OF BED EATING PEANUT BUTTER AND CRACKERS. PT. REQUESTED TO USE BATHROOM, ASSITED BY STAFF TO BSC. PT. PLACED BACK IN BED. NOW LYING IN BED RESTING QUIETLY WITH EYES CLOSED NO DISTRESS NOTED. REMAINS LOS IN FRONT OF NURSES STATION WITH BED IN LOWEST POSITION AND SIDERAILS UP X3 FOR SAFETY. PT. PRESENTS CALM AND COOPERATIVE WITH STAFF THIS MORNING. STAFF WILL CONTINUE TO MONITOR FOR SAFETY.
--- NOTE | 2021-05-26 08:08 | NUR ---
BREAKFAST TRAY AT BEDSIDE. PT. CONTINUES TO BE RESTING QUIETLY WITH EYES CLOSED NO DISTRESS NOTED. STAFF WILL CONTINUE TO MONITOR FOR SAFETY.
--- NOTE | 2021-05-26 08:38 | NUR ---
THIS [employer] OPERATOR SPOKE WITH LORRIE-CASE MANAGEMENT IN REGARDS TO ANY PLACEMENT UPDATES. LORRIE STATES," NO NEW UPDATES AT THIS TIME".
--- NOTE | 2021-05-26 10:30 | NUR ---
VISIBLE ON THE UNIT RESTING QUIETLY WITH EYES CLOSED NO DISTRESS NOTED.
[2021-05-26] MEDS: apixaban 2.5mg tablet PO SCH ×2 (11:10→20:23)
[2021-05-26] MEDS: famotidine 20mg tablet PO SCH (11:10)
--- NOTE | 2021-05-26 12:05 | NUR ---
PT. SITTING ON THE EDGE OF BED EATING LUNCH.
--- NOTE | 2021-05-26 14:58 | NUR ---
RESTING QUIETLY WIT EYES CLOSED NO DISTRESS NOTED.
--- NOTE | 2021-05-26 15:49 | NUR ---
PT. SITTING IN BED EATING PEANUT BUTTER AN [place] CRACKER. SAFETY/FALL PRECAUTIONS IN PLACE.
--- NOTE | 2021-05-26 19:14 | NUR ---
PATIENT RECEIVED ON THE UNIT IN BED SITTING IN NO OBVIOUS DISTRESS. NO PHYSICAL COMPLAINT MADE. PATIENT HAD DINNER.
[2021-05-26] MEDS: QUEtiapine 25mg tablet PO SCH (20:23)
[2021-05-26] MEDS: risperiDONE 0.5mg tablet PO SCH (20:23)
[2021-05-26] MEDS: sertraline 25mg tablet PO SCH (20:23)
--- NOTE | 2021-05-27 05:00 | NUR ---
PATIENT ASLEEP IN NO OBVIOUS DISTRESS. OBSERVATION ONGOING.
--- NOTE | 2021-05-27 06:00 | NUR ---
SLEEPING IN BED ON RIGHT SIDE. NO S/S OF ACUTE DISTRESS. WILL CONITNUE TO OBSERVE AND ASSIST NEEDED.
--- NOTE | 2021-05-27 08:00 | NUR ---
SITTING UP IN BED EATING BREAKFAST. COMPLIANT WITH MEDICATIONS. VOIVED NO COMPLAINTS AT THIS TIME. WILL CONTINUE TO OBSERVE AND ASSIST NEEDED.
[2021-05-27] MEDS: famotidine 20mg tablet PO SCH (08:31)
[2021-05-27] MEDS: apixaban 2.5mg tablet PO SCH ×2 (08:31→20:44)
--- NOTE | 2021-05-27 10:00 | NUR ---
SLEEPING IN BED ON RIGHT SIDE. NO S/S OF RESP. DISTRESS AT THIS TIME. WILL CONTINUE TO MONITOR.
--- NOTE | 2021-05-27 12:00 | NUR ---
SITTING ON THE SIDE OF THE BED EATING LUNCH. NO REQUESTS AT THIS TIME. WILL OBSERVE AND ASSIST NEEDED.
--- NOTE | 2021-05-27 12:30 | NUR ---
CONSULTING WITH CLINICIAN FOR VIDEO CHAT WITH ACCEPTING FACILITY. PATIENT WAS CALM AND COOPERATIVE.
--- NOTE | 2021-05-27 14:00 | NUR ---
SLEEPING IN BED ON RIGHT SIDE. NO ACUTE DISTRESS NOTED AT THIS TIME. WILL CONTINUE TO MONITOR.
--- NOTE | 2021-05-27 19:00 | NUR ---
PATIENT RECEIVED ON THE UNIT IN NO OBVIOUS DISTRESS. NO PHYSICAL COMPLAINT MADE. PATIENT IS IN AND OUT OF BED BUT IS REDIRECTABLE. OBSERVATION ONGOING
[2021-05-27] MEDS: sertraline 25mg tablet PO SCH (20:44)
[2021-05-27] MEDS: risperiDONE 0.5mg tablet PO SCH (20:44)
[2021-05-27] MEDS: QUEtiapine 25mg tablet PO SCH (20:44)
--- NOTE | 2021-05-28 03:44 | NUR ---
PATIENT ASLEEP IN NO OBVIOUS DISTRESS. OBSERVATION ONGOING
--- NOTE | 2021-05-28 05:54 | NUR ---
PATIENT SLEPT INTERMITTENTLY THROUGH THE NIGHT. OBSERVATION ON GOING.
--- NOTE | 2021-05-28 06:00 | NUR ---
PT. CARE ASSUMED FROM ADAM RN. PT. VISIBLE ON THE UNIT AWAKE LYING IN BED. NO SIGNS OF DISTRESS NOTED. BED IN LOWEST POSITION, SIDERAILS UP X3 AND LOS IN FRONT OF NURSES STATION.
[2021-05-28] MEDS: famotidine 20mg tablet PO SCH (08:23)
[2021-05-28] MEDS: apixaban 2.5mg tablet PO SCH (08:23)
--- NOTE | 2021-05-28 09:46 | NUR ---
PT. AMBULATED ON THE UNIT X 1 STAFF ASSIST.
--- NOTE | 2021-05-28 11:40 | NUR ---
PT. ADL'S PERFORMED WITH ASSISTANCE X 1 STAFF. PT.BED LINENS AND SCRUB SET CHANGED. STAFF WILL CONTINUE TO MONITOR FOR SAFETY.
--- NOTE | 2021-05-28 13:43 | NUR ---
VISIBLE ON THE UNIT RESTING QUIETLY.
--- NOTE | 2021-05-28 16:00 | NUR ---
PT. EX- AT BEDSIDE VISITING.
--- NOTE | 2021-05-28 17:35 | NUR ---
[facility] CLINICIAN AT BEDSIDE. PT. CALM AND COOPERATIVE WITH EVAL.
--- NOTE | 2021-05-28 17:45 | NUR ---
PT. UP AMBULATED TO THE RESTROOM. PT. ASKING STAFF TO FORGIVE HER FOR HER BEHAVIOR EARLIER. PT. SCHEDULED FOR DISCHARGE . REQUESTING TO STAY UNTIL AFTER DINNER.
--- NOTE | 2021-05-28 18:51 | NUR ---
PATIENT RECEIVED ON THE UNIT IN NO OBVIOUS DISTRESS. NO PHYSICAL COMPLAINT MADE. PATIENT BREATHING SPONTANOUSLY ON ROOM AIR. OBSERVATION ONGOING .
[2021-05-28] MEDS: QUEtiapine 25mg tablet PO SCH (20:14)
[2021-05-28] MEDS: sertraline 25mg tablet PO SCH (20:14)
[2021-05-28] MEDS: risperiDONE 0.5mg tablet PO SCH (20:14)
--- NOTE | 2021-05-29 05:48 | NUR ---
PATIENT SLEPT INTERMITTENTLY THROUGHOUT THE NIGHT. NO OBVIOUS DISTRESS NOTED.
--- NOTE | 2021-05-29 07:00 | NUR ---
Pt sleeping comfortably, no restless movements. Respirations even and unlabored.
--- NOTE | 2021-05-29 09:00 | NUR ---
Pt continues to sleep restfully, breakfast at bedside. Per report pt didn't get to sleep until after 0200.
--- NOTE | 2021-05-29 11:02 | NUR ---
Pt resting comfortably, respirations even and unlabored. Pt self turns.
--- NOTE | 2021-05-29 12:00 | NUR ---
Woke patient for lunch. Pt was wet with urine, bedding and clothing changed. Pt eagerly ate lunch.
--- NOTE | 2021-05-29 12:45 | NUR ---
Noted pt up next to her be looking around "I am so cold honey, where is my sweater?" A warm blanket was given and pt laid back down.
[2021-05-29] MEDS: apixaban 2.5mg tablet PO SCH ×3 (13:20→20:55)
[2021-05-29] MEDS: famotidine 20mg tablet PO SCH (13:28)
--- NOTE | 2021-05-29 13:39 | NUR ---
ADMINISTERED 0800 DOSE OF ELIQUIS. PT WAS SLEEPING. 05/28 ELIQUIS DOSE WAS SHOWING OVER DUE.
--- NOTE | 2021-05-29 15:06 | NUR ---
Pt required gentle redirection back to her bed. Pt woke and was a little confused.
--- NOTE | 2021-05-29 15:51 | NUR ---
Pt up to bedside commode. Soft med bowel movement.
--- NOTE | 2021-05-29 16:25 | NUR ---
Pt up eating yogurt and crackers "this is the best yogurt I have ever eaten."
--- NOTE | 2021-05-29 17:33 | NUR ---
Ex at bedside.
--- NOTE | 2021-05-29 18:30 | NUR ---
PT SITTING UP ON SIDE OF THE BED TALKING TO EX ON THE PHONE. NO DISTRESS NOTED.
--- NOTE | 2021-05-29 20:30 | NUR ---
PT Sitting up on the side of bed in room, no acute distress noted
[2021-05-29] MEDS: risperiDONE 0.5mg tablet PO SCH (20:53)
[2021-05-29] MEDS: QUEtiapine 25mg tablet PO SCH (20:53)
[2021-05-29] MEDS: sertraline 25mg tablet PO SCH (21:03)
--- NOTE | 2021-05-29 22:48 | NUR ---
Pt up in room using th bedside commode, no acute distress noted.
--- NOTE | 2021-05-30 01:00 | NUR ---
Pt laying in bed, No acute distress noted.
[2021-05-30] MEDS ORDERED: magnesium Cl slow-release 64mg tablet PO PRN (08:55)
[2021-05-30] MEDS ORDERED: magnesium 2GM in 50ml NS 50 ML IV PRN (08:55)
[2021-05-30] MEDS ORDERED: mag hydrox/Alum hydrox/simeth 30ml oral suspension PO PRN (08:55)
[2021-05-30] MEDS ORDERED: ondansetron/PF 4mg/2ml inj IV PRN (08:55)
[2021-05-30] MEDS ORDERED: magnesium hydroxide 30ml (MOM) UD suspension PO PRN (08:55)
[2021-05-30] MEDS ORDERED: magnesium 4gm in 100ml NS 100 ML IV PRN (08:55)
[2021-05-30] MEDS ORDERED: potassium Cl 20 mEq SR tablet PO PRN ×2 (08:55)
[2021-05-30] MEDS ORDERED: potassium CL 10mEq/100ml bag 100 ML IV PRN (08:55)
[2021-05-30] MEDS ORDERED: bisacodyl 10mg suppository rectal RC PRN (08:55)
[2021-05-30] MEDS ORDERED: acetaminophen 325mg tablet PO PRN ×2 (08:55)
[2021-05-30] MEDS ORDERED: acetaminophen 650mg rectal suppository RC PRN (08:55)
[2021-05-30] MEDS ORDERED: diphenhydrAMINE 25mg capsule PO PRN (08:55)
[2021-05-30] MEDS: apixaban 2.5mg tablet PO SCH ×2 (09:27→20:18)
[2021-05-30] MEDS: famotidine 20mg tablet PO SCH (09:27)
[2021-05-30 09:36] LABS: BASOPHILS % (AUTO) 0.2 % (0-1); EOSINOPHILS # (AUTO) 0.2 X10'3 (0-0.9); EOSINOPHILS % (AUTO) 3.7 % (0-6); HEMATOCRIT 35.6 % (35.0-45.0); HEMOGLOBIN 11.5 g/dl (12.0-16.0); LYMPHOCYTES # (AUTO) 1.7 X10'3 (1.1-4.8); LYMPHOCYTES % (AUTO) 26.6 % (21-51); MEAN CORPUSCULAR HEMOGLOBIN 29.1 PG (27.0-31.0); MEAN CORPUSCULAR HGB CONC 32.3 g/dL (33.0-36.5); MEAN CORPUSCULAR VOLUME 90.2 FL (78-98); MEAN PLATELET VOLUME 7.8 FL (7.4-10.4); MONOCYTES # (AUTO) 0.5 X10'3 (0-0.9); MONOCYTES % (AUTO) 8.3 % (2-12); NEUTROPHILS # (AUTO) 3.8 X10'3 (1.8-7.7); NEUTROPHILS % (AUTO) 61.2 % (42-75); PLATELET COUNT 396 X10'3 (140-440); RED BLOOD COUNT 3.95 X10'6 (4.20-5.60); RED CELL DISTRIBUTION WIDTH 15.4 % (11.5-14.5); WHITE BLOOD COUNT 6.3 X10'3 (4.5-11.0)
[2021-05-30 09:52] LABS: ALANINE AMINOTRANSFERASE 13 U/L (12-78); ALBUMIN 2.9 G/DL (3.4-5.0); ALBUMIN/GLOBULIN RATIO 0.7 (1.1-1.5); ALKALINE PHOSPHATASE 140 IU/L (46-116); ANION GAP 11 (8-16); ASPARTATE AMINO TRANSFERASE 14 U/L (10-37); BILIRUBIN,TOTAL 0.4 MG/DL (0.1-1.0); BLOOD UREA NITROGEN 36 MG/DL (7-18); CHLORIDE 103 MMOL/L (99-107); CREATININE 1.03 MG/DL (0.40-0.90); GLUCOSE 99 MG/DL (70-104); MAGNESIUM 2.5 MG/DL (1.5-2.4); POTASSIUM 4.2 MMOL/L (3.5-5.1); SODIUM 140 MMOL/L (135-145); TOTAL PROTEIN 7.1 G/DL (6.4-8.2); eGFR 51 ML/MIN
--- NOTE | 2021-05-30 14:15 | NUR ---
Pt was up using the camode, back in bed covered up with blankets, No distress
--- NOTE | 2021-05-30 16:30 | NUR ---
Pt restless today, pt is up and down asking for medications or wanting to use the bathroom. Pt is directable. Pt's gait is slow and steady.
--- NOTE | 2021-05-30 17:19 | NUR ---
Pt's ex at bedside.
[2021-05-30] MEDS: docusate sod 100mg capsule PO SCH (20:00)
[2021-05-30] MEDS: K and/or MAG REPLACEMENT MC SCH (20:00)
[2021-05-30] MEDS: sertraline 25mg tablet PO SCH (20:18)
[2021-05-30] MEDS: risperiDONE 0.5mg tablet PO SCH (20:18)
[2021-05-30] MEDS: QUEtiapine 25mg tablet PO SCH (20:18)
--- NOTE | 2021-05-30 20:31 | NUR ---
Given meds in applesause pt spit out colace. Pt cooperative with all other care. Pt has been very active so far this shift. Constant talking often repetitive. Up and down using bedside comode. Pt c/o "dizzyness" her gait is steady. Diet changed to Regular pt had no dificulty eating a sandwhich. Pt had visitor at bedside at start of shift who said at home she eats a regular diet. .
--- NOTE | 2021-05-30 22:53 | NUR ---
Pt sleeping at this time. Has been remaining in bed and quiet in spite of a another pt being very loud.
--- NOTE | 2021-05-31 01:30 | NUR ---
Pt up to BSC pt has been sleeping with periods of restlessness.
--- NOTE | 2021-05-31 06:00 | NUR ---
Resting in bed quietly. Resp. even and non- labored. No s/s of discomfort at this time. Will continue to monitor and assist as needed.
[2021-05-31] MEDS: K and/or MAG REPLACEMENT MC SCH ×2 (08:00→20:00)
--- NOTE | 2021-05-31 08:00 | NUR ---
Sitting on the side of the bed eating breakfast. No acute distress noted. Will continue to monitor and assist as needed.
--- NOTE | 2021-05-31 10:00 | NUR ---
Resting in bed quietly on right side. Will continue to monitor and assist as needed.
--- NOTE | 2021-05-31 12:00 | NUR ---
EATING LUNCH SITTING ON THE SIDE OF BED. VOICED NO COMPLAINTS AT THIS TIME.
--- NOTE | 2021-05-31 13:00 | NUR ---
BLOOD DRAW COMPLETED. PATIENT TOLERATED WELL. WILL CONTINU TO MONITOR.
[2021-05-31 13:19] LABS: BASOPHILS # (AUTO) 0.1 X10'3 (0-0.2); EOSINOPHILS # (AUTO) 0.2 X10'3 (0-0.9); EOSINOPHILS % (AUTO) 3.1 % (0-6); HEMATOCRIT 34.2 % (35.0-45.0); HEMOGLOBIN 11.1 g/dl (12.0-16.0); LYMPHOCYTES # (AUTO) 1.3 X10'3 (1.1-4.8); LYMPHOCYTES % (AUTO) 19.3 % (21-51); MEAN CORPUSCULAR HEMOGLOBIN 29.1 PG (27.0-31.0); MEAN CORPUSCULAR HGB CONC 32.3 g/dL (33.0-36.5); MEAN PLATELET VOLUME 7.8 FL (7.4-10.4); MONOCYTES # (AUTO) 0.6 X10'3 (0-0.9); MONOCYTES % (AUTO) 8.4 % (2-12); NEUTROPHILS # (AUTO) 4.6 X10'3 (1.8-7.7); NEUTROPHILS % (AUTO) 68.2 % (42-75); PLATELET COUNT 361 X10'3 (140-440); RED CELL DISTRIBUTION WIDTH 15.9 % (11.5-14.5); WHITE BLOOD COUNT 6.8 X10'3 (4.5-11.0)
[2021-05-31] MEDS: apixaban 2.5mg tablet PO SCH ×2 (13:21→20:47)
[2021-05-31] MEDS: famotidine 20mg tablet PO SCH (13:21)
[2021-05-31] MEDS: docusate sod 100mg capsule PO SCH ×2 (13:22→20:47)
[2021-05-31 13:39] LABS: ALANINE AMINOTRANSFERASE 12 U/L (12-78); ALBUMIN/GLOBULIN RATIO 0.7 (1.1-1.5); ALKALINE PHOSPHATASE 142 IU/L (46-116); ANION GAP 10 (8-16); ASPARTATE AMINO TRANSFERASE 14 U/L (10-37); BILIRUBIN,TOTAL 0.3 MG/DL (0.1-1.0); BLOOD UREA NITROGEN 42 MG/DL (7-18); BUN/CREATININE RATIO 40.8 (6.6-38.0); CHLORIDE 103 MMOL/L (99-107); CREATININE 1.03 MG/DL (0.40-0.90); GLUCOSE 104 MG/DL (70-104); MAGNESIUM 2.4 MG/DL (1.5-2.4); PHOSPHORUS 4.6 MG/DL (2.3-4.5); POTASSIUM 4.8 MMOL/L (3.5-5.1); SODIUM 140 MMOL/L (135-145); TOTAL CARBON DIOXIDE 26.9 MMOL/L (24-32); TOTAL PROTEIN 7.1 G/DL (6.4-8.2); eGFR 51 ML/MIN
--- NOTE | 2021-05-31 13:55 | NUR ---
pt ambulated to bedside comode with standby assist. pt now resting comfortbly. no needs at this time
--- NOTE | 2021-05-31 15:35 | NUR ---
AMBULATING IN ROOM. ASKING FOR FOOD. REDIRECTED TO BED.
--- NOTE | 2021-05-31 18:00 | NUR ---
Pt sitting up on the side of bed, no distress noted.
--- NOTE | 2021-05-31 20:30 | NUR ---
Pt up ambulating towards nurses station, no distress noted.
[2021-05-31] MEDS: QUEtiapine 25mg tablet PO SCH (20:46)
[2021-05-31] MEDS: sertraline 25mg tablet PO SCH (20:47)
[2021-05-31] MEDS: risperiDONE 0.5mg tablet PO SCH (20:47)
--- NOTE | 2021-06-01 00:18 | NUR ---
Pt sitting up the side of bed eating a snack and asking for milk, no acute distress noted at this time.
--- NOTE | 2021-06-01 02:30 | NUR ---
Pt laying in beed with eyes open, no acute distress noted.
--- NOTE | 2021-06-01 04:30 | NUR ---
pt sleeping at this time, no acute distress noted.
--- NOTE | 2021-06-01 06:30 | NUR ---
PT. CARE ASSUMED FROM ADAM DIAZ. PT. VISIBLE ON UNIT AWAKE NO DISTRESS NOTED.
[2021-06-01] MEDS: K and/or MAG REPLACEMENT MC SCH ×2 (08:00→20:00)
[2021-06-01] MEDS: docusate sod 100mg capsule PO SCH ×2 (08:15→20:56)
[2021-06-01] MEDS: apixaban 2.5mg tablet PO SCH ×2 (08:15→20:56)
[2021-06-01] MEDS: famotidine 20mg tablet PO SCH (08:15)
--- NOTE | 2021-06-01 10:29 | NUR ---
LORRIE FROM [facility] HERE, STATES THAT PT WILL BE TX TO FACILITY IN [place], [place] TOMORROW MORNING. OVERFLOW RN NOTIFIED.
--- NOTE | 2021-06-01 10:35 | NUR ---
LORRIE- CASE MANAGEMENT STATES PT HAS BEEN ACCEPTED TO [facility]. PT. SCHEDULED FOR PICK-UP BETWEEN [id number] AM ON 06/02/21. DIETARY MADE AWARE OF NEED FOR SACK LUNCH FOR TRIP.
--- NOTE | 2021-06-01 10:55 | NUR ---
PT. ALLOWED LAB TO DRAW BLOOD WORK.
[2021-06-01 11:10] LABS: BASOPHILS # (AUTO) 0.1 X10'3 (0-0.2); BASOPHILS % (AUTO) 1.7 % (0-1); EOSINOPHILS # (AUTO) 0.2 X10'3 (0-0.9); EOSINOPHILS % (AUTO) 3.1 % (0-6); HEMOGLOBIN 10.5 g/dl (12.0-16.0); LYMPHOCYTES # (AUTO) 0.9 X10'3 (1.1-4.8); LYMPHOCYTES % (AUTO) 15.9 % (21-51); MEAN CORPUSCULAR HGB CONC 32.7 g/dL (33.0-36.5); MEAN CORPUSCULAR VOLUME 88.8 FL (78-98); MEAN PLATELET VOLUME 7.9 FL (7.4-10.4); MONOCYTES # (AUTO) 0.6 X10'3 (0-0.9); MONOCYTES % (AUTO) 10.1 % (2-12); NEUTROPHILS % (AUTO) 69.2 % (42-75); PLATELET COUNT 332 X10'3 (140-440); RED CELL DISTRIBUTION WIDTH 15.7 % (11.5-14.5); WHITE BLOOD COUNT 5.7 X10'3 (4.5-11.0)
[2021-06-01] MEDS ORDERED: COVID-19 VAC, TRIS(PFIZER)/PF 30 MCG/0.3 ML VIAL IMVAC ONE (11:25)
[2021-06-01 11:27] LABS: ALANINE AMINOTRANSFERASE 13 U/L (12-78); ALBUMIN 2.5 G/DL (3.4-5.0); ALBUMIN/GLOBULIN RATIO 0.7 (1.1-1.5); ALKALINE PHOSPHATASE 140 IU/L (46-116); ANION GAP 9 (8-16); ASPARTATE AMINO TRANSFERASE 12 U/L (10-37); BILIRUBIN,TOTAL 0.3 MG/DL (0.1-1.0); BLOOD UREA NITROGEN 39 MG/DL (7-18); BUN/CREATININE RATIO 44.3 (6.6-38.0); CALCIUM 8.6 MG/DL (8.5-10.1); CHLORIDE 105 MMOL/L (99-107); CREATININE 0.88 MG/DL (0.40-0.90); GLUCOSE 100 MG/DL (70-104); MAGNESIUM 2.1 MG/DL (1.5-2.4); PHOSPHORUS 3.7 MG/DL (2.3-4.5); POTASSIUM 4.4 MMOL/L (3.5-5.1); SODIUM 139 MMOL/L (135-145); TOTAL PROTEIN 6.1 G/DL (6.4-8.2); eGFR 62 ML/MIN
--- NOTE | 2021-06-01 13:10 | NUR ---
PT. RECEIVED [employer] VACCINE IN LEFT DELTOID AREA.
--- NOTE | 2021-06-01 14:42 | NUR ---
PT. EX- AT BEDSIDE VISITING. EX- BROUGHT PT. WALLET AND PERSONAL INFORMATION CARDS. THIS CRUISE AGENT CALLED ER REGISTRATION TO PLACE WALLET AND IT CONTENTS IN SAFE LOCK-UP.
--- NOTE | 2021-06-01 19:34 | NUR ---
PATIENT RECEIVED ON THE UNIT IN NO OBVIOUS DISTRESS. NO PHYSICAL DISTRESS NOTED. PATIENT IS UP AND ABOUT OUT OF BED BUT IS REDIRECTABLE. OBSERVATION ONGOING.
[2021-06-01] MEDS: risperiDONE 0.5mg tablet PO SCH (20:56)
[2021-06-01] MEDS: QUEtiapine 25mg tablet PO SCH (20:56)
[2021-06-01] MEDS: sertraline 25mg tablet PO SCH (20:56)
[2021-06-02 02:48] LABS: BASOPHILS % (AUTO) 0.6 % (0-1); EOSINOPHILS # (AUTO) 0.2 X10'3 (0-0.9); EOSINOPHILS % (AUTO) 2.5 % (0-6); HEMATOCRIT 33.2 % (35.0-45.0); HEMOGLOBIN 10.9 g/dl (12.0-16.0); LYMPHOCYTES # (AUTO) 1.1 X10'3 (1.1-4.8); LYMPHOCYTES % (AUTO) 14.9 % (21-51); MEAN CORPUSCULAR HEMOGLOBIN 29.3 PG (27.0-31.0); MEAN CORPUSCULAR HGB CONC 32.8 g/dL (33.0-36.5); MEAN CORPUSCULAR VOLUME 89.6 FL (78-98); MEAN PLATELET VOLUME 7.8 FL (7.4-10.4); MONOCYTES # (AUTO) 0.5 X10'3 (0-0.9); MONOCYTES % (AUTO) 7.2 % (2-12); NEUTROPHILS # (AUTO) 5.4 X10'3 (1.8-7.7); NEUTROPHILS % (AUTO) 74.8 % (42-75); PLATELET COUNT 345 X10'3 (140-440); RED CELL DISTRIBUTION WIDTH 15.4 % (11.5-14.5); WHITE BLOOD COUNT 7.2 X10'3 (4.5-11.0)
[2021-06-02 03:06] LABS: ALANINE AMINOTRANSFERASE 15 U/L (12-78); ALBUMIN 2.8 G/DL (3.4-5.0); ALBUMIN/GLOBULIN RATIO 0.7 (1.1-1.5); ALKALINE PHOSPHATASE 157 IU/L (46-116); ANION GAP 7 (8-16); ASPARTATE AMINO TRANSFERASE 16 U/L (10-37); BILIRUBIN,TOTAL 0.2 MG/DL (0.1-1.0); BLOOD UREA NITROGEN 38 MG/DL (7-18); BUN/CREATININE RATIO 42.7 (6.6-38.0); CALCIUM 8.8 MG/DL (8.5-10.1); CHLORIDE 105 MMOL/L (99-107); CREATININE 0.89 MG/DL (0.40-0.90); GLUCOSE 95 MG/DL (70-104); MAGNESIUM 2.1 MG/DL (1.5-2.4); PHOSPHORUS 3.4 MG/DL (2.3-4.5); POTASSIUM 4.1 MMOL/L (3.5-5.1); SODIUM 139 MMOL/L (135-145); TOTAL CARBON DIOXIDE 26.6 MMOL/L (24-32); TOTAL PROTEIN 6.8 G/DL (6.4-8.2); eGFR 61 ML/MIN
--- NOTE | 2021-06-02 05:55 | NUR ---
patient slept intermittently through out the night. serna catheter in place with drainage bag in place. Hygienic need met.
--- NOTE | 2021-06-02 06:00 | NUR ---
Resting in bed quietly. No acute distress. Will continue to monitor and assist.
[2021-06-02 06:50] VITALS: BP 155/80
[2021-06-02] MEDS: docusate sod 100mg capsule PO SCH (08:34)
[2021-06-02] MEDS: apixaban 2.5mg tablet PO SCH (08:34)
[2021-06-02] MEDS: famotidine 20mg tablet PO SCH (08:34)
[2021-06-02] MEDS ORDERED: LORazepam 1 MG tablet PO ONE (08:50)
--- NOTE | 2021-06-02 09:36 | NUR ---
a ambulance unit [id number], [facility] here for pt to take to [facility] on [address] #[phone]
--- NOTE | 2021-06-02 09:38 | NUR ---
mariana osei at bedside, pt ex . They are friends. He has her contact info.
--- NOTE | 2021-06-02 09:39 | NUR ---
mariana osei [phone]
--- NOTE | 2021-06-02 10:10 | NUR ---
Patient discharged and transported via EMS to [facility]. Report called to EMILY Gallegos at [phone]. Patient was given Ativan 1mg PO x1 per Dr. Thomas
== END 2021-06-02 09:30 | DRG 640 ==
LOC: ER 11:24 → ED HOLD 05-30 09:06
PROVIDERS: ADMIT Family Medicine; ATTEND Family Medicine
PROC: XW023U6 Introduction of COVID-19 Vaccine into Muscle, Percutaneous Approach, New Technology Group 6 (ICD-10-PCS; principal; 2021-06-01)
DX: R62.7 Adult failure to thrive (principal); U07.1 COVID-19; F03.91 Unspecified dementia, unspecified severity, with behavioral disturbance; R64 Cachexia; Z68.1 Body mass index [BMI] 19.9 or less, adult; N39.0 Urinary tract infection, site not specified; G43.909 Migraine, unspecified, not intractable, without status migrainosus; I10 Essential (primary) hypertension; E11.9 Type 2 diabetes mellitus without complications; F32.A Depression, unspecified; Z60.2 Problems related to living alone; M25.552 Pain in left hip; R45.1 Restlessness and agitation; F41.9 Anxiety disorder, unspecified; I71.2 Thoracic aortic aneurysm, without rupture; I87.8 Other specified disorders of veins; K21.9 Gastro-esophageal reflux disease without esophagitis; Z86.73 Personal history of transient ischemic attack (TIA), and cerebral infarction without residual deficits; Z79.01 Long term (current) use of anticoagulants; Z86.16 Personal history of COVID-19; Z23 Encounter for immunization
CPT/HCPCS: 36415; 80053; 80305; 81001; 81003; 82948; 83735; 84100; 85025; 87077; 87088; 87186; 87635; 93005; 96372; 97530; 99285; C9803; G0378; J1630; J8597